=== PATIENT | male | born 1965 | race Caucasian/White ===

== ENCOUNTER 2024-06-11 13:06 | Inpatient (IN) | payer BC, SELFPAY ==
[2024-06-11] VITALS (34 sets, daily range): BP systolic 85–169; BP diastolic 54–118; BMI 27.2; BMI 25.9
[2024-06-11 01:35] LABS: % Basophils 0.6 % (0-2); % Eosinophils 2.3 % (0-6); % Immature Granulocytes 0.3 % (0-0.5); % Lymphocytes 42.9 % (20.5-51.1); % Monocytes 10.3 % (1.7-9.3); % Neutrophils 43.6 % (42.2-75.2); Absolute Basophils 0.1 10^3/uL (0-0.2); Absolute Eosinophils 0.2 10^3/uL (0-0.7); Absolute Neutrophils 4.1 10^3/uL (1.4-6.5); Hematocrit 45.4 % (39.0-52.0); Hemoglobin 15.9 g/dL (13.0-18.0); Mean Corpuscular Hgb 32.6 pg (27.0-31.0); Mean Platelet Volume 8.9 fL (7.4-10.4); Nucleated Red Blood Cells % 0 % (-); Platelet Count 207 10^3/uL (130-400); Red Blood Cell Count 4.88 10^6/uL (4.70-6.10); White Blood Cell Count 9.3 10^3/uL (4.8-10.8)
[2024-06-11 01:48] LABS: ALT (SGPT) 43 U/L (0-50); AST (SGOT) 48 U/L (17-59); Albumin 4.8 g/dl (3.5-5.0); Alkaline Phosphatase 77 U/L (38-126); Blood Urea Nitrogen 18 mg/dl (9-20); Calcium 9.4 mg/dl (8.4-10.2); Carbon Dioxide 24 mmol/L (22-30); Chloride 100 mmol/L (98-107); Glucose 136 mg/dl (70-99); Potassium 3.7 mmol/L (3.5-5.1); Sodium 137 mmol/L (135-145); Total Bilirubin 0.4 mg/dl (0.2-1.3); Total Protein 7.7 g/dl (6.3-8.2); eGFR > 60.00
[2024-06-11 01:55] LABS: Troponin I < 0.012 ng/ml
--- NOTE | 2024-06-11 02:12 | ED.GENMED ---
History of Present Illness
General
Chief Complaint: Chest Pain
Source: patient and spouse
Time Seen by Provider: 06/11/24 02:04
History of Present Illness
History of Present Illness:
This patient is a 58-year-old male presents emergency department with complaints of 'tightness' in the left side of his chest that started approximately midnight tonight and continues. It was considered severe at onset rated 9 out of 10 now down to
3 out of 10. He also feels a sense of 'tense in my jaw'. He denies other associated symptoms such as diaphoresis, nausea, vomiting, dyspnea, back pain, neck pain, headache. He is burping. Patient states he has been having similar symptoms for
about a month specifically when he is on the treadmill, and the symptoms resolved completely once he stops his activity. Tonight he was concerned because he was just sitting down when this happened.
Past History
Past History
ED Past Medical History: Other (Psoriasis)
ED Past Surgical History: Orthopedic
Social History
Tobacco: Non-smoker
Drug: None
Personal:
Living: with family
Phy Exam
Physical Exam
Physical Exam:
GENERAL: Alert , in no apparent distress
EYE: pupils equal and reactive
NECK: Supple, no significant adenopathy.
ENT: o/p clr, mmm.
CARDIAC: Regular rate and rhythm .
LUNGS: Clear breath sounds bilaterally, no acute respiratory distress, no wheezes/rales/rhonchi
ABDOMEN: Soft, without focal tenderness, no r/g, no cvat
NEUROLOGICAL: Alert and oriented, no focal neuro deficits
SKIN: Warm and dry, skin intact.
MUSCULOSKELETAL: No edema, well perfused.
PSYCH: Normal and appropriate interaction.
Scores
Heart Score for Chest Pain Patients
STEMI patient?: Not applicable
Course
Orders/Labs/Results
Orders:
Orders
06/11/24
Electrocardiogram (*1) Stat
Reason for Study: Chest Pain
Comment: DONE
06/11/24 01:04
Electrocardiogram (*1) Urgent
Reason for Study: Chest Pain
EKG- Treatment ONCE
06/11/24 01:17
Complete Blood Count/With Diff Urgent
Comprehensive Metabolic Panel Urgent
Magnesium Urgent
Phosphorus Urgent
Troponin I Urgent
06/11/24 02:12
Aspirin 325 mg PO NOW STA
Nitroglycerin Sublingual [Nitrostat (Sublingual)] 0.4 mg SL [id number] PRN
CR Chest - 2 Views Urgent
Comment:
Reason For Exam: cp
06/11/24 02:43
0.9% Sodium Chloride 1000 ml [Nss] 1,000 ml IV BOLUS
06/11/24 Breakfast
Cholesterol Lowering
At Your Request: Full Participation
06/11/24 06:32
Admit/Transfer Patient As Directed
Co-Sign Provider:
Level of Care: Inpatient admission
Assign to:: Telemetry
Physician / Group: Jerrica
Diagnosis: Chest Pain
Reason for Telemetry: Chest Pain syndromes
Date to Stop Telemetry: 06/13/24
Time to Stop Telemetry: 11:00
Reason for Hospitalization: ACS
Expected length of stay greater than two midnights?: Yes
ELOS- Estimated Length of Stay in days: 2
I certify the patient meets the requirements for IP care: Yes
PRN Pain Medication Management As Directed
May give lesser potent ordered pain med per pt: Yes
preference::
Protocol:: Medication orders for pain may be administered in a
manner that supports deferring to patient preference
when the pt is:
- Requesting an ordered lesser potent pain medication.
Least to most potent pain medications are defined
as: acetaminophen < NSAID < tramadol < opioids
(morphine, oxycodone, hydromorphone).
- Requesting a lesser dose of the same medication IF
ORDERED.
- Requesting a less intrusive route of administration
if both routes are prescribed by the provider (PO <
IV).
06/11/24 06:33
Code Status As Directed
Resuscitation Status: Full Code
06/11/24 06:51
Heparin 4,000 units IV NOW STA
Heparin Protocol- PTT Orders As Directed
PTT per Heparin protocol: -Obtain CBC and baseline PTT - if not already collected.
-Obtain PTT 6 hours from start of infusion. Then, every 6 hours until 2 consecutive
PTT's are therapeutic. Then, PTT Daily.
-With each rate change, obtain PTT every 6 hours until 2 consecutive PTT's are
therapeutic. Then, PTT Daily.
Notify MD As Directed
Notify physician if: PTT is greater than or equal to 200.
06/11/24 07:00
Flush (0.9% Sodium Chloride) [Flush (Nss)] See Dose Instructions IV PER PROTOCOL
Heparin 46513 Units/250 ml 25,000 units in 250 ml IV PER PROTOCOL
Weight to be used for heparin protocol in kilograms (kg):: 83.4
Protocol:: Cardiac Tx/Acute Coronary
PTT Goal Range to be used:: PTT 73 to 111 seconds
Order type:: Initial
INITIAL Infusion Dose (UNITS/KG/hr) & then follow protocol:: 12 units/kg/hr
Infusion Dose in UNITS/hr & then follow protocol (UNITS/hr):: 1,000
INFUSION RATE in mL/hr & then follow protocol (mL/hr):: 10
PTT less than or equal to 64 seconds:: Increase rate by 200 units/hr (+ 2 mL/hr)
PTT 64.1 to 72.9 seconds:: Increase rate by 100 units/hr (+ 1 mL/hr)
PTT 73 to 111 seconds:: Target Range. No change in rate.
PTT 111.1 to 130.9 seconds:: Decrease rate by 100 units/hr (- 1 mL/hr)
PTT 131 to 199.9 seconds:: HOLD for 1 hr. Then decrease rate by 200 units/hr (- 2 mL/hr)
PTT greater than or equal to 200 seconds:: HOLD for 2 hrs & Notify Provider. Then decrease by 200 units/hr (-
2 mL/hr)
Lab follow-up:: Each change, PTT q6h until 2 consecutive are therapeutic. Then PTT
daily.
06/11/24 07:01
EKG [Electrocardiogram (*1)] Routine
Reason for Study: Chest Pain
06/11/24 07:14
Complete Blood Count/No Diff Urgent
Comment: Obtain baseline before beginning heparin infusion if not already collected
PTT Urgent
Comment: Obtain baseline before beginning heparin infusion if not already collected
06/11/24 07:27
0.9% Sodium Chloride [Nss (Preservative Free)] See Protocol IV PRN PRN
Lorazepam [Ativan] 1 mg IV Q1HPRN PRN
Lorazepam [Ativan] 1 mg PO Q2HPRN PRN
Lorazepam [Ativan] 2 mg IV Q1HPRN PRN
06/11/24 07:27
CARDIOLOGY CONSULT Routine
Consulting Provider: Mike Shepherd
Was physician already notified: No
Reason for consult: ACS
Case Management Consult Once
Case Management Consult: Other
Comment: Substance abuse counseling
Consult Notification Routine
Specialty to Notify: Cardiology
Date consulting provider notified: 06/11/24
Time consulting provider notified: 07:31
Notified:: Office
MSAS SCORE As Directed
MSAS Score 0-4: Repeat MSAS every 2 hours until 0-4 for three consecutive assessments, then every 4 hours x 48
hours.
MSAS Score 5-7: For MILD withdrawl symptoms. Repeat MSAS and RASS every 2 hours
MSAS Score 8-11: For MODERATE withdrawal symptoms. Repeat MSAS and RASS every 1 hour. Consider ICU or IMU
level of care.
MSAS Score > 11: For SEVERE withdrawal symptoms. Repeat MSAS and RASS every 1 hour. Notify provider, consider
ICU level of care.
MSAS Additional Instructions: If no improvement or no decrease in score from severe to moderate within 12
hours, consult psychiatry
MSAS Notify Provider: Notify provider if patient requires more than 10 mg of Lorazepam in eight hour period.
06/11/24 10:32
Transfer Patient As Directed
Transfer to: IVU
06/11/24 10:55
Metoprolol Xl [Toprol Xl] 12.5 mg PO NOW STA
06/11/24 11:03
Pantoprazole [Protonix] 40 mg PO NOW STA
06/11/24 11:07
Add On- LAB Urgent
Tests Added?: Magnesium, Phosphorous
06/11/24 12:30
Acetaminophen [Tylenol] 650 mg PO Q4HPRN PRN
Aspirin Chewable [Low Strength Aspirin] 81 mg PO DAILY
FOLic ACID [Folvite] 1 mg PO DAILY
FOLic ACID [Folvite] 1 mg 0.9% Sodium Chloride 50 ml [Nss] 50 ml IV DAILYPRN
Morphine Sulfate 2 mg IV Q4HPRN PRN
Thiamine Injection 200 mg IV Q12
06/11/24 12:30
DIETARY CONSULT Routine
Reason for Consult: Nutrition support, possible refeeding guidelines
Activity As Directed
Activity Level: Bedrest
EKG with chest pain [ECG as needed] As Directed
ECG as needed for:: Chest Pain
I/O [Intake/ Output] As Directed
Frequency: Per unit guidelines
Pneumatic Compression Sleeves As Directed
Type: Knee high
Vital Signs As Directed
Frequency: Per unit guidelines
Oxygen Therapy [O2 Therapy] [RESP] Routine
Titrate/Wean O2 to maintain O2 sat greater than (%): 94
DX Deep Vein Thrombosis Video Routine
06/11/24 12:36
Glycohemoglobin (HgbA1c) Routine
Troponin I Q6H
06/11/24 13:40
Troponin I Q6H
06/11/24 18:00
Atorvastatin [Lipitor] 40 mg PO QPM
06/12/24 03:26
Basic Metabolic Panel IN AM
Cardiovascular Evaluation IN AM
Complete Blood Count/No Diff IN AM
06/12/24 06:00
EKG [Electrocardiogram (*1)] IN AM
Reason for Study: Chest Pain
06/12/24 08:00
Metoprolol Xl [Toprol Xl] 12.5 mg PO DAILY
Pantoprazole [Protonix] 40 mg PO DAILY
06/13/24 04:08
Complete Blood Count/No Diff Q2D
Comment: Notify MD if platelet count is <130,000 or decreases by 50% from baseline
06/13/24 11:00
DC Protocol for Telemetry ONCE
06/14/24 08:00
Thiamine HCl [Vitamin B1] 100 mg PO BID
06/15/24 06:00
Complete Blood Count/No Diff Q2D
Comment: Notify MD if platelet count is <130,000 or decreases by 50% from baseline
06/17/24 06:00
Complete Blood Count/No Diff Q2D
Comment: Notify MD if platelet count is <130,000 or decreases by 50% from baseline
06/19/24 06:00
Complete Blood Count/No Diff Q2D
Comment: Notify MD if platelet count is <130,000 or decreases by 50% from baseline
06/21/24 06:00
Complete Blood Count/No Diff Q2D
Comment: Notify MD if platelet count is <130,000 or decreases by 50% from baseline
06/23/24 06:00
Complete Blood Count/No Diff Q2D
Comment: Notify MD if platelet count is <130,000 or decreases by 50% from baseline
06/25/24 06:00
Complete Blood Count/No Diff Q2D
Comment: Notify MD if platelet count is <130,000 or decreases by 50% from baseline
06/27/24 06:00
Complete Blood Count/No Diff Q2D
Comment: Notify MD if platelet count is <130,000 or decreases by 50% from baseline
Abnormal Lab Results
06/11/24 06/11/24 06/11/24
01:17 07:14 12:36
RBC 4.41 L 10^6/uL
(4.70-6.10)
MCH 32.6 H pg 32.9 H pg
(27.0-31.0) (27.0-31.0)
Absolute Lymphs (auto) 4.0 H 10^3/uL
(1.2-3.4)
Absolute Monos (auto) 1.0 H 10^3/uL
(0.1-0.6)
Monocytes % 10.3 H %
(1.7-9.3)
Glucose 136 H mg/dl
(70-99)
Troponin I 12.300 H* ng/ml
06/11/24 07:14
06/11/24 01:17
Vital Signs
Initial and Last Documented VS:
Initial Vital Signs
Temp Pulse Resp BP Pulse Ox
97.9 F 108 26 169/118 94
06/11/24 01:11 06/11/24 01:11 06/11/24 01:11 06/11/24 01:11 06/11/24 01:11
Last Documented Vital Signs
Temp Pulse Resp BP Pulse Ox
97.7 F 60 17 133/93 94
06/13/24 04:00 06/13/24 07:19 06/13/24 04:00 06/13/24 07:19 06/13/24 04:01
*Critical Care Note
Total Time (30-74mins, 75-104mins- exclusive of procedures): Not Applicable
Update Note
Update Note:
Patient presents to the Emergency Department with _chest pain
Number and Complexity of Problems Addressed at the Encounter
� Chronic conditions affecting care:
� Acute Exacerbation and/or Progression of Chronic Illness:
� Differential Diagnosis includes: But not limited to pericarditis, ACS, pleurisy, etc. etc.
Amount and/or Complexity of Data to be Reviewed and Analyzed
� I performed an independent evaluation of and my interpretation is:
EKG:Read by me, sinus tachycardia, ST depressions noted inferolaterally
CT:
Xrays:CXR read by me, no acute abnl
Laboratory Studies:First troponin normal
Other:
� Review of other/old records reveals:
� Clinical information was obtained by an independent historian: who is at bedside
� Prescriptions/Medications Considered but not given:
� Further testing considered but not performed:
Risk of Complications and/or Morbidity or Mortality of Patient Management
� Social determinants of health affecting care:
� Discussion with other providers (PCP, Hospitalists, Consultants, etc):
� Escalation of care including admission/observation vs risk of discharge considered: 3:57 AM patient given aspirin and nitro x 3, he is now pain-free, ST depressions still noted. Given history of pain at rest, abnormal EKG
without prior for comparison, recommend observation, serial troponins, consideration for stress testing.
ED Attending Note
-
Portions of this chart may have been created with voice recognition software.� Occasional wrong word or��sound alike� substitutions may have occurred due to the inherent limitations of voice recognition software.
Discharge Plan
Departure
Patient Disposition: Admit
Date of Disposition: 06/11/24
Time of Disposition: 03:57
Admit to: Telemetry
Admit to doctor: jerrica
Presentation/result/management discussed w/ accepting MD/DO: Hospitalist
Condition: Fair
Discharge Problem:
Chest pain
Interventions
Interventions:
*Risk Screen - Suicide Last Done: 06/11/24 01:11
*General Assessment Last Done: 06/11/24 01:11
*Neglect/Abuse Screening Last Done: 06/11/24 01:11
ED- Fall Risk Assessment Last Done: 06/11/24 02:07
*ED COVID-19 Vaccine History Last Done: 06/11/24 02:07
*Nursing Disposition Last Done: 06/11/24 12:45
ED- Cardiac Assessment Last Done: 06/11/24 02:06
Discharge Date and Time
Discharge Date/Time: 06/11/24 12:45
[2024-06-11] MEDS: NITROSTAT (SUBLINGUAL) 0.4 MG SL ×5 (02:20→16:29)
[2024-06-11] MEDS: ASPIRIN 325 MG PO (02:20)
[2024-06-11] MEDS: NSS 1000 IV (02:44)
--- NOTE | 2024-06-11 07:00 | HPS.HSE ---
Family Physician
-
Family Physician: * NONE
Chief Complaint
-
Chest Pain
History of Present Illness
Patient is a 58y M with no significant PMH who presents to ED complaining of chest pain. Patient states that he woke around 12 midnight with L upper chest discomfort. He states that he has been having similar discomfort for the past 3 weeks or
so. The symptoms initially started after long work-outs of 30-40 minutes on the treadmill. Over the past 3 weeks, the symptoms have occurred with less and less duration of exercise.
Last PM was the first time pain woke him from sleep or occurred at rest. Pain lasted until about 4 AM and has not recurred since.
Patient presented to the ED for further evaluation and treatment.
He denies any known history of heart disease or other chronic health issues.
He is adopted and has no known family history.
At the time of my examination, patient is resting comfortably with no chest pain at present.
Medical History
Past Medical History
Past Medical History: Reports None
Past Surgical History: Reports Other
Additional Past Surgical History:
Knee Arthroscopy
Social History
Tobacco: Former Smoker (Quit smoking about 15 years ago. Approx 20 pack years total use.)
Alcohol: Daily (5-6 beers daily.)
Drug: None
Family History
Family History: Adopted
Allergies / Home Medications
Allergies reflects when Allergies were last updated in [employer].
Home Medications with original date entered in [employer]
Allergy/Medication List:
Allergies
Allergy/AdvReac Type Severity Reaction Status Date / Time
No Known Allergies Allergy Unverified 06/11/24 06:32
Home Medications
No Meds [No Current Medications] 06/11/24
Review of Systems
-
History Source: Patient
A 12 point ROS was completed and negative except as noted: Yes
Constitutional: Denies Fever or Chills
Respiratory: Denies Cough or Trouble Breathing
Cardiac: Reports Chest Pain; Denies Diaphoresis or Palpitations
Abdomen/GI: Denies Abdominal Pain, Nausea, Vomiting or Diarrhea
: Denies Dysuria, Frequency or Flank Pain
Musculoskeletal: Denies Joint Pain or Edema
Neurological: Denies Dizzy or Headache
Psych: Denies Depression or Anxiety
Physical Exam
Vital Signs
Vital Signs
Temp Pulse Resp BP Pulse Ox
97.9 F 82 22 131/87 90
06/11/24 01:11 06/11/24 04:30 06/11/24 04:30 06/11/24 03:00 06/11/24 04:30
Physical Exam
General: Other (58y M in no acute distress.)
HEENT: Moist mucous membranes and PERRLA
Respiratory: Clear; No Wheezes, Rales or Rhonchi
Cardiac: S1/S2 and Regular Rhythm; No Murmur
GI: Soft, Non Tender, Non Distended and Normal Bowel Sounds
Musculoskeletal: No Clubbing, No Cyanosis and No Edema
Neuro: AO x 3
Laboratory Results
-
06/11/24 01:17
Laboratory Results
Total Bilirubin 0.4 mg/dl (0.2-1.3) 06/11/24 01:17
AST 48 U/L (17-59) 06/11/24 01:17
ALT 43 U/L (0-50) 06/11/24 01:17
Alkaline Phosphatase 77 U/L (38-126) 06/11/24 01:17
Troponin I < 0.012 ng/ml 06/11/24 01:17
Impression/Plan
-
A/P: Patient is a 58y M with no significant PMH who presents to ED for evaluation of chest pain.
Chest Pain / ACS
- Admit for further evaluation and treatment.
- Patient with excellent story for progressive angina over the past 3 weeks.
- Initial EKG with diffuse ST changes concerning for ischemia - no prior tracings to compare.
- Second tracing with progressive ST depressions laterally.
- Troponin undetectable thus far - follow serially.
- Begin IV heparin given excellent story and positive EKG changes.
- Cardiology evaluation for additional recommendations / possible ischemic evaluation.
- ASA daily.
- Check lipid panel, A1C, etc
- Follow for any new / recurrent symptoms.
Alcohol Use Disorder
- Patient reports drinking 5-6 beers every day.
- Monitor for evidence of withdrawal during hospital stay.
- BZDs as needed for symptoms of withdrawal.
- Thiamine, folate, MVI replacement.
DVT Prophylaxis: On IV heparin
Code Status: Full
[2024-06-11] MEDS: HEPARIN 4000 UNITS IV (07:17)
[2024-06-11] MEDS: HEPARIN 25000 UNITS/250 ML IV (07:18)
[2024-06-11 07:26] LABS: Hematocrit 41.2 % (39.0-52.0); Hemoglobin 14.5 g/dL (13.0-18.0); Mean Corp Hgb Conc. 35.2 g/dL (33.0-37.0); Mean Corpuscular Hgb 32.9 pg (27.0-31.0); Mean Corpuscular Volume 93.4 fL (80.0-94.0); Mean Platelet Volume 8.8 fL (7.4-10.4); Platelet Count 179 10^3/uL (130-400); Red Blood Cell Count 4.41 10^6/uL (4.70-6.10); Red Cell Dist. Width 11.9 % (11.5-14.5); White Blood Cell Count 6.6 10^3/uL (4.8-10.8)
[2024-06-11 07:35] LABS: APTT 29.3 Sec (23.4-35.0)
--- NOTE | 2024-06-11 09:48 | CON.CAR ---
Addendum entered and electronically signed by Freddie Rodrigues MD 06/11/24 11:10:
Patient seen and examined
Agree with notes and assessment
Agree with plan
Dynamic ECG changes noted and is pain-free when seen. He gives a 3 to 4-week history of escalating angina with exercise and pain coming on with less and less exercise which is better with rest. ST depressions noted in V2 through V5 on presentation
and better with pain-free in the emergency department. Currently has received aspirin and IV heparin.
Exam:
Alert and x 3
Nonfocal neurologically
JVP 6
Cor regular no murmur
Lungs clear to auscultation bilaterally
Abdomen soft nontender positive bowel sounds
Extremities no edema
Well-appearing
Well-nourished
Does not appear in acute distress
HEENT normocephalic atraumatic
PCP: None
Cardiology: None prior to admission
Impression:
Chest pain
Abnormal EKG with ST depressions anterolaterally
Elevated BP
Plan:
-Presented with chest pain. Initially started as exertional chest pain that would resolve with rest, however last night developed severe chest tightness while at rest prompting ER evaluation.
-Story consistent with unstable angina. Pain-free after receiving 3 SL nitro in ER.
-Initial ECG reviewed, SR with ST depressions anterolaterally. Improved on most recent ECG.
-Agree with IV heparin
-Given aspirin 324 mg in ER. Continue aspirin 81 mg daily
-Initial troponin negative. Continue to trend.
-Check echo
-Check HgbA1c, CVE
-BP elevated on arrival, and it dropped after receiving SL nitro. Will start Toprol 12.5 mg daily. May increase this to 25 mg daily depending upon his blood pressures. May also consider Norvasc if blood pressures are not well-controlled on
current regimen
-Plan for [facility] 06/13/2024 or sooner if unstable symptoms.
-Chest x-ray unremarkable.
-Further management pending echo and catheterization results.
Discussed plan with Dr. Ortega
Original Note:
Consultation
Consultation Request
Date/Time Consultation Requested: 06/11/2024
Date/Time Consultation Performed: 06/11/2024
Requesting Provider: Dr. Rouse
Performing Provider: Daksha Blackwell PA-C for Dr. Rodrigues
Reason for Consultation: Chest pain, Abnormal ECG
Medical History
-
History of Present Illness:
HPI: Tushar is a 58-year-old male with no significant past medical history. He presents to ER for evaluation of progressively worsening chest tightness. He reports that typically he exercises on the treadmill 3 miles every day, however
approximately 2 to 3 weeks ago he started noting exertional chest tightness during his exercises. He states approximately fpc through his workout he was started to have chest tightness along the left side of his chest with radiation to his jaw.
He would stop exercising and within a few minutes his symptoms were resolved. Throughout the past couple of weeks, he notes that the chest tightness started happening with less and less exertion, and over the past few days he was only able to
exercise for a few minutes before he needed to stop due to his symptoms. Pain resolved shortly after resting, however but with any resumption of exercise would return. Last evening while sitting on the couch resting, he had more severe chest
tightness with radiation into his jaw that occurred while at rest. As he had not previously had rest symptoms, he decided to come into the ER for evaluation. In ER, initial ECG concerning with anterolateral ST depressions. He was given 3 doses of
sublingual nitroglycerin and pain resolved. Initial troponin negative. Given story concerning for angina with abnormal EKG, he has been admitted and started on IV heparin. Cardiology consulted for evaluation. He notes he does not follow
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 During dermatology visits, he notes his blood pressure has been elevated, however he is not on any antihypertensive medications. Currently he is
pain-free and is resting comfortably in stretcher.
PMH:
None
Past Medical History
Past Medical History: Other (See HPI)
Past Surgical History: Orthopedic
Social History
Tobacco: Former Smoker (Quit approximately 15 years ago. 1 PPD for 30 years)
Alcohol: Daily (4-6 beers daily)
Drug: None
Personal:
Living: With Family
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
Family History
Family History: Adopted
Allergies / Home Medications
Allergy/AdvReac Type Severity Reaction Status Date / Time
No Known Allergies Allergy Unverified 06/11/24 06:32
�Medication �Instructions �Recorded �Confirmed �Type
No Meds [No Current Medications] 06/11/24 06/11/24 History
Review of Systems
-
History Source: Patient
All other systems: Negative unless noted
Physical Exam
Vital Signs
Temp Pulse Resp BP Pulse Ox
97.9 F 82 22 131/87 90
06/11/24 01:11 06/11/24 04:30 06/11/24 04:30 06/11/24 03:00 06/11/24 04:30
Lab Results
06/11/24 07:14
06/11/24 01:17
Troponin I < 0.012 ng/ml 06/11/24 01:17
Physical Exam
General: Well Developed, Well Nourished and No Apparent Distress
HEENT: Normocephalic, Anicteric and Moist Mucous Membranes
Respiratory: Clear and Non Labored Respirations
Cardiac: S1/S2 and Regular Rhythm
Musculoskeletal: No Clubbing, No Cyanosis and No Edema
Skin: Warm and Dry
Neuro: AO x 3 and Nonfocal/Grossly Intact
Psych: Calm
Impression / Plan
-
PCP: None
Cardiology: None prior to admission
Impression:
Chest pain
Abnormal EKG with ST depressions anterolaterally
Elevated BP
Plan:
-Presented with chest pain. Initially started as exertional chest pain that would resolve with rest, however last night developed severe chest tightness while at rest prompting ER evaluation.
-Story concerning for angina. Pain-free after receiving 3 SL nitro in ER.
-Initial ECG reviewed, SR with ST depressions anterolaterally. Improved on most recent ECG.
-Agree with IV heparin
-Given aspirin 324 mg in ER. Continue aspirin 81 mg daily
-Initial troponin negative. Continue to trend.
-Check echo
-Check HgbA1c, CVE
-BP elevated on arrival, and it dropped after receiving SL nitro. Will start Toprol 12.5 mg daily
-Plan for [facility] 06/13/2024 or sooner if unstable symptoms.
-Chest x-ray unremarkable.
-Further management pending echo and catheterization results.
HPI: Tushar is a 58-year-old male with no significant past medical history. He presents to ER for evaluation of progressively worsening chest tightness. He reports that typically he exercises on the treadmill 3 miles every day, however
approximately 2 to 3 weeks ago he started noting exertional chest tightness during his exercises. He states approximately fpc through his workout he was started to have chest tightness along the left side of his chest with radiation to his jaw.
He would stop exercising and within a few minutes his symptoms were resolved. Throughout the past couple of weeks, he notes that the chest tightness started happening with less and less exertion, and over the past few days he was only able to
exercise for a few minutes before he needed to stop due to his symptoms. Pain resolved shortly after resting, however but with any resumption of exercise would return. Last evening while sitting on the couch resting, he had more severe chest
tightness with radiation into his jaw that occurred while at rest. As he had not previously had rest symptoms, he decided to come into the ER for evaluation. In ER, initial ECG concerning with anterolateral ST depressions. He was given 3 doses of
sublingual nitroglycerin and pain resolved. Initial troponin negative. Given story concerning for angina with abnormal EKG, he has been admitted and started on IV heparin. Cardiology consulted for evaluation. He notes he does not follow
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 During dermatology visits, he notes his blood pressure has been elevated, however he is not on any antihypertensive medications. Currently he is
pain-free and is resting comfortably in stretcher.
Data Reviewed
-
EKG: Tracing Personally Visualized and interpreted
Radiology: Report Reviewed by me
Labs: Labs Reviewed by me
--- NOTE | 2024-06-11 10:52 | W.PN.HOSP.TC ---
Today's Communication/Plan
-
see plan
Assessment / Plan
Assessment / Plan
A/P: Patient is a 58y M with no significant PMH who presents to ED for evaluation of chest pain.
Chest Pain / ACS
- Initial EKG with diffuse ST changes concerning for ischemia - no prior tracings to compare.
- Second tracing with progressive ST depressions laterally.
- Troponin undetectable thus far - follow serially.
- continue IV Heparin
- Cardiology evaluation appreciated, plan for cath on Thursday
- ASA daily.
- new start Metoprolol
- new start Statin
- Check lipid panel, A1C
Alcohol Use Disorder
- Patient reports drinking 5-6 beers every day.
- Monitor for evidence of withdrawal during hospital stay.
- BZDs as needed for symptoms of withdrawal.
- Thiamine, folate, MVI replacement.
GI PPx - with alcohol use history and initiation of aspirin/heparin will start Protonix for GI PPx
DVT Prophylaxis: On IV heparin
Code Status: Full
51 minutes spent on patient care
Anticipated Discharge: > 48 hours
Subjective/Interval History
-
Date of Service: June 11, 2024
currently denies chest pain
Objective Data
-
Labs:
Laboratory Results
06/11/24 06/11/24
01:17 07:14
WBC 9.3 6.6
Hgb 15.9 14.5
Hct 45.4 41.2
Plt Count 207 179
APTT 29.3
Sodium 137
Potassium 3.7
Chloride 100
Carbon Dioxide 24
BUN 18
Creatinine 0.9
Glucose 136 H
Calcium 9.4
Total Bilirubin 0.4
AST 48
ALT 43
Alkaline Phosphatase 77
Vital Signs:
Vital Signs
Temp Pulse Resp BP Pulse Ox
97.9 F 82 22 131/87 90
06/11/24 01:11 06/11/24 04:30 06/11/24 04:30 06/11/24 03:00 06/11/24 04:30
Review of Systems
-
History Source: Patient
All other systems: Reviewed and negative
Physical Exam
-
General: No Apparent Distress
HEENT: PERRLA
Respiratory: Clear to Auscultation; Negative Wheezes
Cardiac: Regular Rhythm and S1/S2
GI: Soft and Nontender
Musculoskeletal: No Edema
Skin: Warm and Dry; Negative Rash
Neuro: AO x 3
Psych: Calm
Data Reviewed
-
Diagnostic Radiology: Report Reviewed by me
Labs: Labs Reviewed by me
--- NOTE | 2024-06-11 11:12 | EDRN ---
Patient states he drinks a 6 pack of beer daily. Denies withdrawl complications or seizures in history
[2024-06-11 11:39] LABS: Magnesium 2.1 mg/dl (1.6-2.3); Phosphorus 4.2 mg/dl (2.5-4.5)
[2024-06-11] MEDS: PROTONIX 40 MG PO (12:45)
[2024-06-11] MEDS: TOPROL XL 12.5 MG PO (12:45)
[2024-06-11] MEDS: LOW STRENGTH ASPIRIN 81 MG PO (13:41)
[2024-06-11] MEDS: FOLVITE 1 MG PO (13:41)
[2024-06-11] MEDS: THIAMINE INJECTION 200 MG IV ×2 (13:41→20:04)
[2024-06-11 13:57] LABS: APTT 62.6 Sec (23.4-35.0)
[2024-06-11 14:11] LABS: Glycohemoglobin (HgbA1c) 5.3 % (4.0-5.6)
[2024-06-11] MEDS: OCEAN, SALINE MIST 1 SPRAYS NASAL ×2 (16:30→20:05)
[2024-06-11] MEDS: TYLENOL 650 MG PO ×2 (16:35→20:44)
[2024-06-11] MEDS: LIPITOR 40 MG PO (17:28)
--- NOTE | 2024-06-11 17:53 | PTCARENOTE ---
Pt received at 1500 from the ED with heparin infusing at 1200 units/hr. Pt denies any chest pain or sob. Room air sat 95%. Pt later later c/o of 1/10 left upper chest/shoulder discomfort. Medicated with SL Nitro x 2 with no real relief. Medicated
with 650mg of Tylenol for c/o of left shoulder pain, pt sat oob in the chair and got relief.
[2024-06-11 21:18] LABS: APTT 62.4 Sec (23.4-35.0)
[2024-06-11] MEDS: MORPHINE SULFATE 2 MG IV (21:52)
--- NOTE | 2024-06-11 22:00 | PTCARENOTE ---
Assumed care of pt from kamron RN. Walking rounds completed. Pt AAOx3. MEADE. Pt on MSAS - see worklist. Pt is SR on the tele monitor. HR 80s. BP stable. No edema. Palpable pulses throughout. Lung sounds audible B/L. Pt is 94% on RA. Abdomen
soft/nontender. +BS. Pt voiding w/o issue. Heparin infusing as ordered and titrated per protocol. PIV x1 intact. Pt c/o left shoulder pain that radiates along the left upper back. EKG obtained. EKG showed NSR w/ possible left atrial enlargement, ST
& T wave abnormality, and prolonged QT. See MAR for pain medication administration. Pt repositioned for comfort. Pt instructed to ring if he starts experiencing CP. See worklist for full nursing assessment and interventions. Call iyer within reach.
[2024-06-12 03:09] VITALS: BP 131/77
[2024-06-12] MEDS: TYLENOL 650 MG PO ×3 (03:35→21:11)
[2024-06-12 03:38] VITALS: BMI 25.5
[2024-06-12 04:05] LABS: Hemoglobin 15.7 g/dL (13.0-18.0); Mean Corp Hgb Conc. 34.9 g/dL (33.0-37.0); Mean Corpuscular Hgb 32.6 pg (27.0-31.0); Mean Corpuscular Volume 93.6 fL (80.0-94.0); Mean Platelet Volume 9.7 fL (7.4-10.4); Platelet Count 161 10^3/uL (130-400); Red Blood Cell Count 4.81 10^6/uL (4.70-6.10); White Blood Cell Count 10.2 10^3/uL (4.8-10.8)
[2024-06-12 04:10] LABS: APTT 83.1 Sec (23.4-35.0)
[2024-06-12 04:21] LABS: Blood Urea Nitrogen 13 mg/dl (9-20); Carbon Dioxide 25 mmol/L (22-30); Chloride 103 mmol/L (98-107); Estimated Creatinine Clearance 116 ml/min; Glucose 114 mg/dl (70-99); HDL Cholesterol 70 mg/dl; LDL Cholesterol, Calculated 165 mg/dl; Potassium 3.9 mmol/L (3.5-5.1); Sodium 136 mmol/L (135-145); Total Cholesterol 282 mg/dl (50-199); Triglyceride 237 mg/dl (10-149); Very Low Density Lipoprotein 47 mg/dl (0-30); eGFR > 60.00
[2024-06-12] MEDS: HEPARIN 25000 UNITS/250 ML IV ×2 (04:35→22:40)
[2024-06-12 07:48] VITALS: BP 129/75
--- NOTE | 2024-06-12 07:51 | W.PN.HOSP.TC ---
Today's Communication/Plan
-
NPO after MN for cardiac cath tomorrow
appreciate Cardiology
Assessment / Plan
Assessment / Plan
A/P: Patient is a 58y M with no significant PMH who presents to ED for evaluation of chest pain found to have an NSTEMI.
Chest Pain / ACS
- ischemic EKG changes
- Troponin peaked at 12.6
- continue IV Heparin
- Cardiology evaluation appreciated, plan for cath on Thursday
- new start asa daily
- new start Metoprolol
- new start Statin
HLD
-new start statin
Alcohol Use Disorder
- Patient reports drinking 5-6 beers every day.
- Monitor for evidence of withdrawal during hospital stay.
- BZDs as needed for symptoms of withdrawal.
- Thiamine, folate, MVI replacement.
GI PPx - with alcohol use history and initiation of aspirin/heparin will start Protonix for GI PPx
DVT Prophylaxis: On IV heparin
Code Status: Full
51 minutes spent on patient care
Anticipated Discharge: 24 - 48 hours
Subjective/Interval History
-
Date of Service: June 12, 2024
some upper back pain
no chest pain
Objective Data
-
Labs:
Laboratory Results
06/11/24 06/12/24 06/12/24
20:48 00:01 03:26
WBC 10.2
Hgb 15.7
Hct 45.0
Plt Count 161
APTT 62.4 H Cancelled 83.1 H
Sodium 136
Potassium 3.9
Chloride 103
Carbon Dioxide 25
BUN 13
Creatinine 0.7
Glucose 114 H
Calcium 9.0
06/12/24
10:30
WBC
Hgb
Hct
Plt Count
APTT Pending
Sodium
Potassium
Chloride
Carbon Dioxide
BUN
Creatinine
Glucose
Calcium
Vital Signs:
Vital Signs
Temp Pulse Resp BP Pulse Ox
98.3 F 66 20 131/77 93
06/12/24 07:45 06/12/24 07:15 06/12/24 07:45 06/12/24 03:09 06/12/24 07:45
I&O
06/11/24 06/12/24 06/13/24
06:59 06:59 06:59
Intake Total 268 / 268
Output Total 1300 / 1300
Balance -1032 / -1032
Review of Systems
-
History Source: Patient
All other systems: Reviewed and negative
Physical Exam
-
General: No Apparent Distress
HEENT: PERRLA
Respiratory: Clear to Auscultation; Negative Wheezes
Cardiac: Regular Rhythm and S1/S2
GI: Soft and Nontender
Musculoskeletal: No Edema
Skin: Warm and Dry; Negative Rash
Neuro: AO x 3
Psych: Calm
Data Reviewed
-
Diagnostic Radiology: Report Reviewed by me
Labs: Labs Reviewed by me
--- NOTE | 2024-06-12 08:41 | W.PN.CARDCBS ---
Today's Communication / Plan
-
Left heart catheterization June 13
IV heparin
Aspirin
Holding dual antiplatelet therapy out of concern for multivessel disease
Any further pain would cath today
Troponins trending down
Increased beta-claudia
Statin
Impression / Plan
-
PCP: None
Cardiology: None prior to admission
Impression:
Chest pain-presented with unstable angina
Abnormal EKG with ST depressions anterolaterally
Elevated BP
NSTEMI
Mixed hyperlipidemia
Recent EtOH use
Plan:
-Presented with chest pain. Initially started as exertional chest pain that would resolve with rest, however last night developed severe chest tightness while at rest prompting ER evaluation.
-3 to 4 weeks of unstable angina. Pain-free after receiving 3 SL nitro in ER. Overall time of pain was approximately 2 hours
-He has deep T wave inversions on today's ECG and is pain-free. His troponin has peaked and now is coming down with a peak at 12. We had conversations yesterday and today about reporting any chest pain to our team if he notes this as we would move
up his cardiac catheterization. He does have left shoulder ache which is constant and appears musculoskeletal and is worse with change in position better with lying upright. This is different pain in character than the anginal symptoms that he is
been having.
-Continue IV heparin
-Given aspirin 324 mg in ER. Continue aspirin 81 mg daily
-Can stop checking further troponins as they are trending downward
-Check echo
-Check HgbA1c, CVE
-BP elevated on arrival, and it dropped after receiving SL nitro. I increased his Toprol to 25 mg daily with good heart rate and blood pressure control this morning. He is on limited activity
-Plan for [facility] 06/13/2024 or sooner if unstable symptoms.
-Chest x-ray unremarkable.
-Added Lipitor and check to fasting lipids
HPI: Tushar is a 58-year-old male with no significant past medical history. He presents to ER for evaluation of progressively worsening chest tightness. He reports that typically he exercises on the treadmill 3 miles every day, however
approximately 2 to 3 weeks ago he started noting exertional chest tightness during his exercises. He states approximately half-way through his workout he was started to have chest tightness along the left side of his chest with radiation to his jaw.
He would stop exercising and within a few minutes his symptoms were resolved. Throughout the past couple of weeks, he notes that the chest tightness started happening with less and less exertion, and over the past few days he was only able to
exercise for a few minutes before he needed to stop due to his symptoms. Pain resolved shortly after resting, however but with any resumption of exercise would return. Last evening while sitting on the couch resting, he had more severe chest
tightness with radiation into his jaw that occurred while at rest. As he had not previously had rest symptoms, he decided to come into the ER for evaluation. In ER, initial ECG concerning with anterolateral ST depressions. He was given 3 doses of
sublingual nitroglycerin and pain resolved. Initial troponin negative. Given story concerning for angina with abnormal EKG, he has been admitted and started on IV heparin. Cardiology consulted for evaluation. He notes he does not follow
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 During dermatology visits, he notes his blood pressure has been elevated, however he is not on any antihypertensive medications. Currently he is
pain-free and is resting comfortably in stretcher.
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
Subjective
Date of Service: June 12, 2024
No chest pain this morning
Objective
Labs:
06/12/24 03:26
06/12/24 03:
Labs
Hgb 15.7 g/dL (13.0-18.0) 06/12/24 03:
Hct 45.0 % (39.0-52.0) 06/12/24 03:
Plt Count 161 10^3/uL (130-400) 06/12/24 03:26
APTT 83.1 Sec (23.4-35.0) H 06/12/24 03:26
Sodium 136 mmol/L (135-145) 06/12/24 03:26
Potassium 3.9 mmol/L (3.5-5.1) 06/12/24 03:26
BUN 13 mg/dl (9-20) 06/12/24 03:26
Creatinine 0.7 mg/dL (0.7-1.3) 06/12/24 03:26
Glucose 114 mg/dl (70-99) H 06/12/24 03:26
Troponins
06/11/24 06/11/24 06/11/24
01:17 12:36 13:40
Troponin I < 0.012 12.300 H* 12.300 H*
06/11/24 06/11/24 06/11/24
19:30 19:30 20:48
Troponin I Cancelled Cancelled 12.600 H*
06/11/24 06/12/24
22:54 03:26
Troponin I Cancelled 9.370 H* D
Vital Signs and I&O:
Vital Signs
Temp Pulse Resp BP Pulse Ox
98.3 F 66 20 131/77 93
06/12/24 07:45 06/12/24 07:15 06/12/24 07:45 06/12/24 03:09 06/12/24 07:45
Vital Signs
Temp Pulse Resp BP Pulse Ox
98.3 F 66 20 131/77 93
06/12/24 07:45 06/12/24 07:15 06/12/24 07:45 06/12/24 03:09 06/12/24 07:45
Intake & Output
06/10/24 06/11/24 06/12/24 06/13/24
06:59 06:59 06:59 06:59
Intake Total 268 / 268
Output Total 1300 / 1300
Balance -1032 / -1032
Physical Exam
Physical Exam
����Physical Exam
���������������������General:��no apparent distress, not acutely ill
���������������������������Neck:��supple. no meningeal signs. normal psoterior pharynx
������������������������
���������������������������Heart:��s1/s2 regular rate and rhythm, no murmur. equal radial pulses.
��������������������������Lungs: ��no acute respiratory distress. clear bilaterally
����������������������Abdomen:�normal bowel sounds. not tender. no CVAT
��������������������������Neuro:��alert and oriented. no focal neurological deficits
������������������������������Skin: ��no rash
�����������������������Psychiatric:�well kept. interactive and cooperative
�����������������������Extremities:��no edema. no calf tenderness. negative homans. good distal pulses
��
�
[2024-06-12] MEDS: FOLVITE 1 MG PO (09:37)
[2024-06-12] MEDS: OCEAN, SALINE MIST 1 SPRAYS NASAL ×2 (09:37→21:11)
[2024-06-12] MEDS: PROTONIX 40 MG PO (09:37)
[2024-06-12] MEDS: LOW STRENGTH ASPIRIN 81 MG PO (09:37)
[2024-06-12] MEDS: TOPROL XL 25 MG PO ×2 (09:37→21:10)
[2024-06-12] MEDS: THIAMINE INJECTION 200 MG IV ×2 (09:38→21:11)
[2024-06-12 11:39] VITALS: BP 116/72
[2024-06-12 12:15] LABS: APTT 86.6 Sec (23.4-35.0)
[2024-06-12] MEDS: NORVASC 2.5 MG PO (12:33)
[2024-06-12 15:39] VITALS: BP 118/68
[2024-06-12] MEDS: LIPITOR 80 MG PO (17:06)
[2024-06-12 20:00] VITALS: BP 126/67
[2024-06-12 22:44] VITALS: BP 128/81
[2024-06-13] VITALS (13 sets, daily range): BP systolic 107–140; BP diastolic 48–93; BMI 25.5
[2024-06-13 04:19] LABS: Hematocrit 42.3 % (39.0-52.0); Hemoglobin 14.4 g/dL (13.0-18.0); Mean Corpuscular Hgb 32.6 pg (27.0-31.0); Mean Corpuscular Volume 95.7 fL (80.0-94.0); Mean Platelet Volume 9.4 fL (7.4-10.4); Platelet Count 159 10^3/uL (130-400); Red Blood Cell Count 4.42 10^6/uL (4.70-6.10); Red Cell Dist. Width 12.2 % (11.5-14.5); White Blood Cell Count 7.3 10^3/uL (4.8-10.8)
[2024-06-13 04:31] LABS: APTT 142.7 Sec (23.4-35.0)
[2024-06-13 04:57] LABS: Blood Urea Nitrogen 13 mg/dl (9-20); Calcium 9.2 mg/dl (8.4-10.2); Carbon Dioxide 26 mmol/L (22-30); Chloride 103 mmol/L (98-107); Estimated Creatinine Clearance 102 ml/min; Glucose 111 mg/dl (70-99); Magnesium 2.1 mg/dl (1.6-2.3); Potassium 4.2 mmol/L (3.5-5.1); Sodium 138 mmol/L (135-145); eGFR > 60.00
--- NOTE | 2024-06-13 06:07 | PTCARENOTE ---
Pt NSR on monitor, denies chest or shoulder pain. c/o mild right side RICHARDSON. independent in the room. NPO for cath
[2024-06-13] MEDS: NORVASC 5 MG PO (07:17)
[2024-06-13] MEDS: LOW STRENGTH ASPIRIN 81 MG PO (07:17)
[2024-06-13] MEDS: FOLVITE 1 MG PO (07:17)
[2024-06-13] MEDS: PROTONIX 40 MG PO (07:19)
[2024-06-13] MEDS: TOPROL XL 25 MG PO ×2 (07:19→20:18)
[2024-06-13] MEDS: OCEAN, SALINE MIST 1 SPRAYS NASAL ×2 (07:20→20:19)
--- NOTE | 2024-06-13 08:31 | CONSULT.CT ---
Addendum entered and electronically signed by JEFF Gross 06/13/24 15:05:
Edit: No hx of drug use
Original Note:
Consultation
-
Date/Time Consultation Requested: 06/13/24824
Date/Time Consultation Performed: 06/13 830
Requesting Provider: Jonna
Performing Provider: Taya AGUILAR for Deepti DE LA O
Reason for Consultation: CABG Eval
Patient History
Physicians
Family Physician: none
Outpatient Manager Market: none
Inpatient Manager Market: Dr. Rodrigues
History of Present Illness
58-year-old with history of smoking and daily EtOH abuse Presented to [facility] on 06/11 with complaints of worsening chest pain/chest tightness. 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
exertional chest tightness during his exercise. At times the chest pain would radiate to his jaw. He did note that when he would stop exercising within a few minutes the symptoms would resolve. However he did note that as time progressed he would
have more chest tightness/discomfort at rest. Therefore he presented to the emergency room at [place] and an EKG showed ST depressions. He was given 3 doses of sublingual nitroglycerin which resolved his pain and he was started on an IV heparin
infusion for an NSTEMI. Today he was taken to the [facility] in which multivessel disease was found and CT surgery was consulted for surgical evaluation.
Past Medical History
Past Medical History: None
Past Surgical History
Past Surgical History: Orthopedic
Dental History
regular dental visits. last in february
Family History
Mother: N/A
Father: N/A
Family Medical History: Adopted
Social History
Alcohol: Daily (5-6 beers)
Drug: None and Former User
Tobacco: Former Smoker (Quit 15 years ago (but 30-year history of smoking) )
Personal:
Living: With Family
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
Allergies
Allergy/AdvReac Type Severity Reaction Status Date / Time
No Known Allergies Allergy Unverified 06/11/24 06:32
Home Medications
�Medication �Instructions �Recorded �Confirmed �Type
No Meds [No Current Medications] 06/11/24 06/11/24 History
Review of Systems
-
History Source: Patient
General: Reports No Symptoms
HEENT: Reports No Symptoms
Respiratory: Reports No Symptoms
Cardiac: Reports Chest Pain
Abdomen/GI: Reports No Symptoms
: Reports No Symptoms
Musculoskeletal: Reports No Symptoms
Skin: Reports No Symptoms
Neurological: Reports No Symptoms
Vascular: Reports No Symptoms
Physical Exam
Vital Signs
Temp 97.7 F 06/13/24 04:00
Temp route: Oral 06/13/24 04:00
Pulse 60 06/13/24 07:19
Rhythm: Normal sinus rhythm 06/12/24 19:45
Resp Rate 17 06/13/24 04:00
Blood pressure 133/93 06/13/24 07:19
Blood pressure extremity used: Right upper arm 06/13/24 04:00
Position: Lying 06/13/24 04:00
MAP (cuff-Michelle Monitor) 75 06/13/24 04:01
SaO2 94 06/13/24 04:01
Nasal Cannula flow liters per minute 95 06/11/24 14:59
Oxygen Mode of Delivery Room air 06/13/24 04:00
Can the patient verbally communicate their pain? Yes 06/12/24 22:11
Pain scale ratin 06/12/24 22:11
Actual Weight 78.3 kg 06/13/24 04:35
Body Mass Index (BMI) 25.5 06/13/24 04:35
Labs
06/13/24 04:08
06/13/24 04:08
APTT 142.7 Sec (23.4-35.0) H 06/13/24 04:08
Hemoglobin A1c 5.3 % (4.0-5.6) 06/11/24 12:36
Troponin I 9.370 ng/ml H* D 06/12/24 03:26
Exam
General: Well Developed, Well Nourished and No Apparent Distress
HEENT: Normocephalic
Respiratory: Clear
Cardiac: S1/S2
GI: Soft and Non Tender
Rectal: Deferred by Provider
Skin: Warm
Neuro: AO x 3
Extremities: Pulses (+1)
Lymph: No Lymphadenopathy
Psych: Calm
Assessment / Plan
-
58-year-old with no significant past medical history presented to [facility] after having 2 to 3 weeks of chest discomfort. He ruled in for an NSTEMI and was taken to the cardiac [facility] today. Catheter revealed multivessel disease and
CT surgery was consulted for surgical evaluation.
#CAD
-Patient's case will be discussed with attending physician. Further details regarding surgical timing intervention will be determined after attending physicians full evaluation
-Routine preoperative cardiothoracic surgery orders will be initiated.
-STS risk stratification score will be calculated after preoperative testing is complete
-Nitroglycerin and heparin gtt per cardiology
--- NOTE | 2024-06-13 09:19 | ITS.CL.CATH ---
[facility] - Catheterization
Cardiac Catheterization
Procedure Report:
LEFT HEART CATHETERIZATION
Date of Procedure: June 13, 2024
Referring: Dr. Freddie Rodrigues
PROCEDURES:
1. Left heart catheterization, coronary angiogram.
2. Ultrasound-guided access
INDICATION: NSTEMI
ACCESS: Right radial artery, 6 Nigerien sheath, under ultrasound guidance
HEMODYNAMICS : (mmHg)
AO (s/d) : 120/68
LV (s/d) : 124/8
LVEDP : 17
CORONARY FINDINGS
DOMINANCE: Right
LEFT MAIN: The left main artery is a large-caliber vessel which gives rise to the left anterior descending artery and the left circumflex artery. There is minimal luminal irregularities.
LEFT ANTERIOR DESCENDING: The left anterior descending artery is a small to medium caliber vessel which becomes diminutive in the mid to distal portion and does not end up supplying the apex. There is a large-caliber diagonal branch which has a 70
to 80% stenosis as it takes off from the LAD and ends up supplying the apex and providing imyj-[id number]-gjcbi collaterals.
CIRCUMFLEX: The left circumflex artery is a medium caliber vessel which gives rise to 1 major branching obtuse marginal branch., Mid left circumflex into OM branch has a area of significant ectasia with mid OM at the level of bifurcation of the
branches with a 80 to 85% hazy stenosis extending into the branches. The OM branches appear to be good bypass targets.
RIGHT CORONARY ARTERY: The right coronary artery is a large-caliber, dominant vessel which gives rise to the right posterior descending artery and a right posterolateral system. The RCA is a very ectatic vessel with mild to moderate diffuse
atherosclerotic plaque and a 60% focal stenosis in the distal portion. There is also a hazy 90% stenosis at the takeoff of the RPDA with what appears to be a possible dual PDA system with the proximal RPDA subtotally occluded and filling faintly
antegradely as well as with waak-mb-oibki collaterals.
SEDATION: 32 minutes of procedural sedation was utilized. An independent medical imaging specialist was present to assist with and help manage the patient's level of consciousness and physiologic status.
RADIATION SUMMARY: Fluoro Time (min): 3.3, Dose (mGy): 499.23, DAP (Gy.cm2) : 37.4
Closure Device: Vascular band over right radial artery, 10 cc of air.
CONCLUSIONS
1. Significant multivessel coronary artery disease.
2. Mildly elevated LVEDP at 17 mmHg.
RECOMMENDATIONS
1. Wean radial band per protocol.
2. Consult CT surgery for consideration for coronary artery bypass grafting with bypasses to diagonal (dimunitive LAD), left circumflex/OM, LPLB, RPDA, RPLB.
Ghislaine Coyle MD, FACC, [facility] [place]
[2024-06-13] MEDS: THIAMINE INJECTION 200 MG IV ×2 (09:38→20:18)
--- NOTE | 2024-06-13 09:57 | PTCARENOTE ---
received patient this am, patient remains on monitor, NSR, VSS. IV heparin @ 1200units/hr via left forearm. IV heparin was D/C'd, when laboratory tester came over to get patient for cath. report given to laboratory tester. patient returned with right R band intact,
o2 sat 95%. monitor shows NSR, VSS, no c/o CP. IV NSS @ 117cc/hr x 3 hours.
--- NOTE | 2024-06-13 13:56 | W.PN.HOSP.TC ---
Today's Communication/Plan
-
Monitor vital signs
see plan
CT surgery following
Continue aspirin, metoprolol
on Heparin
Assessment / Plan
Assessment / Plan
A/P: Patient is a 58y M with no significant PMH who presents to ED for evaluation of chest pain found to have an NSTEMI.
Chest Pain / ACS
- ischemic EKG changes
- Troponin peaked at 12.6
- continue IV Heparin
Cardiology following, status post cath with multivessel disease. CT surgery involved.
Aspirin
Continue metoprolol
statin
HLD
-new start statin
Alcohol Use Disorder
- Patient reports drinking 5-6 beers every day.
- Monitor for evidence of withdrawal during hospital stay.
- BZDs as needed for symptoms of withdrawal.
- Thiamine, folate, MVI replacement.
GI PPx - with alcohol use history and initiation of aspirin/heparin will start Protonix for GI PPx
DVT Prophylaxis: On IV heparin
Code Status: Full
General: No Apparent Distress
HEENT: PERRLA
Respiratory: Clear to Auscultation; Negative Wheezes
Cardiac: Regular Rhythm and S1/S2
GI: Soft and Nontender
Musculoskeletal: No Edema
Skin: Warm and Dry; Negative Rash
Neuro: AO x 3
Psych: Calm
Anticipated Discharge: > 48 hours
Subjective/Interval History
-
Date of Service: June 13, 2024
Denies pain
Objective Data
-
Labs:
Laboratory Results
06/13/24 06/13/24
04:08 11:45
WBC 7.3
Hgb 14.4
Hct 42.3
Plt Count 159
APTT 142.7 H Pending
Sodium 138
Potassium 4.2
Chloride 103
Carbon Dioxide 26
BUN 13
Creatinine 0.8
Glucose 111 H
Calcium 9.2
Vital Signs:
Vital Signs
Temp Pulse Resp BP Pulse Ox
98.5 F 61 18 124/58 94
06/13/24 11:08 06/13/24 12:45 06/13/24 11:08 06/13/24 12:00 06/13/24 12:00
I&O
06/12/24 06/13/24 06/14/24
06:59 06:59 06:59
Intake Total 268 / 268 452 / 452
Output Total 1300 / 1300
Balance -1032 / -1032 452 / 452
--- NOTE | 2024-06-13 14:38 | PTCARENOTE ---
patient returned from all his test, IV heparin restarted at 1200units/hr via left arm. Jenifer RECYCLABLE MATERIALS SORTER aware of IV in left arm, pink band placed for limb restriction. right and left BP obtained and recorded on flowsheet.
--- NOTE | 2024-06-13 14:48 | CM ---
Reviewed chart. Met with and Mrs. Rachel to review discharge plans. He states prior to admission he resides with his spouse in a two story home with three steps to enter. He states he has a full flight of steps to get to bedroom/full bathroom.
He states he has a powder room on he first floor. He states prior to admission he was independent with ambulation and adls. He states he does not have any DME in the home. He states he has a prescription plan and uses [facility]. His spouse
states she will try to see if she can building construction ironworker for the first week or so when he goes home to assist in his care if needed. Medical work-up in progress. The discharge plan is to return home with his spouse and a home visit by the
Transitional Care Nurse when medically stable.
We reviewed pre-op and post-op routines. We briefly reviewed the shower instructions. We also reviewed restrictions including sternal precautions and driving restrictions. We discussed a home visit by the Transitional Care Nurse. He is agreeable
to a home visit. The plan is for CABG on 06/15/24.
--- NOTE | 2024-06-13 15:19 | W.PN.UPDATE ---
Update Note
Progress Note Update
Procedure Type:�Isolated CABG
PERIOPERATIVE OUTCOME ESTIMATE %
Operative Mortality 0.506%
Morbidity & Mortality 3.62%
Stroke 0.742%
Renal Failure 0.352%
Reoperation 2.08%
Prolonged Ventilation 1.64%
Deep Sternal Wound Infection 0.101%
Long Hospital Stay (>14 days) 1.53%
Short Hospital Stay (<6 days)* 73.7%
Clinical Summary
Planned Surgery: Isolated CABG, Urgent, First cardiovascular surgery
Demographics: 58 year old, White, male, 78kg, 175cm, BMI: 25.5 kg/m�
Insurance/Payor: Commercial
Lab Values: Creatinine: 0.8 mg/dL, Hematocrit: 42.3%, WBC Count: 7.3 10�/�L, Platelet Count: 462998 cells/�L
Substance Abuse: Former smoker, Alcohol use: >=8 drinks/week
Risk Factors / Comorbidities: Hypertension
Cardiac Status: Ejection Fraction = 55%
Coronary Artery Disease: 3 vessels diseased, Non-ST Elevation NM, NM: 1 to 7 Days
Valve Disease: Trivial/Trace AR, Trivial/Trace MR, Trivial/Trace TR
[2024-06-13] MEDS: LIPITOR 80 MG PO (17:50)
[2024-06-13] MEDS: MIRALAX 17 GRAMS PO (17:50)
--- NOTE | 2024-06-13 18:12 | PTCARENOTE ---
Patient c/o constipation, TT CVPA ordered miralax, given as ordered.
[2024-06-13] MEDS: SENOKOT-S 1 TABLET PO (20:19)
[2024-06-13 20:47] LABS: APTT 44.6 Sec (23.4-35.0)
[2024-06-14] VITALS (7 sets, daily range): BP systolic 125–138; BP diastolic 75–86; BMI 25.3
--- NOTE | 2024-06-14 00:04 | PTCARENOTE ---
pt. received at change of shift, pt. seen and assessed in room with at bedside. pt AOx3, tele reading NSR, VS WNL. heparin gtt running at 1200units/hr, 8pm PTT drawn, PTT resulted not within therapeutic range. heparin titrated to 1400units/hr
per protocol, signed off with another RN as documented. call iyer within reach. continuing to monitor at this time.
[2024-06-14] MEDS: HEPARIN 25000 UNITS/250 ML IV ×2 (01:59→22:29)
[2024-06-14 02:40] LABS: % Basophils 0.5 % (0-2); % Immature Granulocytes 0.1 % (0-0.5); % Lymphocytes 22.1 % (20.5-51.1); % Monocytes 8.6 % (1.7-9.3); % Neutrophils 66.7 % (42.2-75.2); Absolute Eosinophils 0.2 10^3/uL (0-0.7); Absolute Lymphocytes 1.7 10^3/uL (1.2-3.4); Absolute Monocytes 0.6 10^3/uL (0.1-0.6); Hematocrit 40.6 % (39.0-52.0); Mean Corp Hgb Conc. 34.5 g/dL (33.0-37.0); Mean Corpuscular Hgb 32.7 pg (27.0-31.0); Mean Corpuscular Volume 94.9 fL (80.0-94.0); Mean Platelet Volume 9.7 fL (7.4-10.4); Nucleated Red Blood Cells % 0 % (-); Platelet Count 155 10^3/uL (130-400); Red Blood Cell Count 4.28 10^6/uL (4.70-6.10); Red Cell Dist. Width 11.9 % (11.5-14.5); White Blood Cell Count 7.5 10^3/uL (4.8-10.8)
[2024-06-14 03:00] LABS: ALT (SGPT) 34 U/L (0-50); AST (SGOT) 53 U/L (17-59); Albumin 3.9 g/dl (3.5-5.0); Alkaline Phosphatase 46 U/L (38-126); Blood Urea Nitrogen 13 mg/dl (9-20); Calcium 9.1 mg/dl (8.4-10.2); Carbon Dioxide 26 mmol/L (22-30); Chloride 104 mmol/L (98-107); Direct Bilirubin 0.1 mg/dl (0.0-0.4); Estimated Creatinine Clearance 116 ml/min; GGTP 42 U/L (15-73); Glucose 96 mg/dl (70-99); INR 1.09; PT 14.6 Sec (11.4-14.6); Potassium 3.8 mmol/L (3.5-5.1); Sodium 137 mmol/L (135-145); Total Bilirubin 0.6 mg/dl (0.2-1.3); Total Protein 6.4 g/dl (6.3-8.2); eGFR > 60.00
[2024-06-14 03:02] LABS: APTT 91.1 Sec (23.4-35.0); APTT 93.5 Sec (23.4-35.0)
--- NOTE | 2024-06-14 06:00 | W.PN.CT ---
Today's Communication / Plan
-
Plan:
-Cont. current medical management per primary team
-Cont. current meds (ASA, Heparin, Lipitor, Toprol XL, Thiamine, Folic Acid; will place hold on Norvasc)
-Avoid JASEN-I/ARBs/CCB 48hrs prior to OR
-Ongoing preop workup
-Replete K, 3.8
-Cont. to monitor for Delirium Tremens
-For CABG by Dr. Tatum tomorrow, 06/15/24
-Will cont. to closely monitor
Assessment / Plan
-
Assessment:
-Severe 3v CAD
-NSTEMI (peak trop 12.6)
-[place]
-HLD
-Former tobacco use (quit 15 years ago)
-Daily ETOH use (5-6 beers/daily)
Discussed patient care with: Cardiology, Nursing and Care Team
Subjective
-
Date of Service: June 14, 2024
C/O dry cough overnight. Denies CP/SOB
Objective Data
-
Lab Results
06/14/24 02:02
06/14/24 02:02
PT 14.6 Sec (11.4-14.6) 06/14/24 02:02
INR 1.09 06/14/24 02:02
APTT 91.1 Sec (23.4-35.0) H 06/14/24 02:02
APTT 93.5 Sec (23.4-35.0) H 06/14/24 02:02
Vital Signs
Vital Signs
Temp Pulse Resp BP Pulse Ox
98.2 F 71 17 126/76 93
06/14/24 02:02 06/14/24 02:02 06/14/24 02:02 06/14/24 02:02 06/14/24 02:02
CT Intake/Output/Weight
06/13/24 06/13/24 06/14/24
06:59 18:59 06:59
Intake Total 452 / 452 288 / 815 527 / 815
Output Total 600 / 600
Balance 452 / 452 -312 / 215 527 / 215
SaO2: 93 (RA)
Physical Exam
-
General: Awake, Oriented and AOx3
Cardiovascular: Regular rate & rhythm, No Murmurs, No Rub and No Gallop
Respiratory: Clear
Extremities: No Edema
Data Reviewed
-
Lab Results: Results Reviewed
Medications: Active Meds Reviewed
Chest X-Ray: Report Reviewed and Image Reviewed
ECG: Report Reviewed and Image Reviewed
[2024-06-14] MEDS: KCL 20 MEQ PO (06:13)
[2024-06-14] MEDS: FOLVITE 1 MG PO (07:41)
[2024-06-14] MEDS: VITAMIN B1 100 MG PO ×2 (07:42→19:13)
[2024-06-14] MEDS: PROTONIX 40 MG PO (07:42)
[2024-06-14] MEDS: TOPROL XL 25 MG PO ×2 (07:42→19:13)
[2024-06-14] MEDS: LOW STRENGTH ASPIRIN 81 MG PO (07:42)
[2024-06-14] MEDS: SENOKOT-S 1 TABLET PO ×2 (07:42→19:14)
[2024-06-14] MEDS: OCEAN, SALINE MIST NASAL (07:43)
[2024-06-14 08:23] LABS: APTT 124.7 Sec (23.4-35.0)
--- NOTE | 2024-06-14 09:28 | W.PN.CARDCBS ---
Today's Communication / Plan
-
Reviewed cath. Cath showed multivessel CAD and plan is for CABG with Dr Tatum Jun 15 2024.
He remains cp free on IV Heparin.
Echo Jun 13 2024 showed normal function with no significant valve disease.
Cont Toprol. Eventual ACEI.
HR and bp improved.
Lipitor 80 mg daily added for hx CAD and LDL 165. Goal LDL at least < 70. Recheck lipids as outpt.
Impression / Plan
-
.
PCP: None
Cardiology: None prior to admission
Impression:
Chest pain-presented with unstable angina, Abnormal EKG with ST depressions anterolaterally
NSTEMI, peak trop 12.6
Multivessel CAD
HTN
Mixed hyperlipidemia
Recent EtOH use
Left heart cath June 13, 2024
HEMODYNAMICS : (mmHg)
AO (s/d) : 120/68
LV (s/d) : 124/8
LVEDP : 17
CORONARY FINDINGS
DOMINANCE: Right
LEFT MAIN: The left main artery is a large-caliber vessel which gives rise to the left anterior descending artery and the left circumflex artery. There is minimal luminal irregularities.
LEFT ANTERIOR DESCENDING: The left anterior descending artery is a small to medium caliber vessel which becomes diminutive in the mid to distal portion and does not end up supplying the apex. There is a large-caliber diagonal branch which has a 70
to 80% stenosis as it takes off from the LAD and ends up supplying the apex and providing dmrp-tw-ezmjo collaterals.
CIRCUMFLEX: The left circumflex artery is a medium caliber vessel which gives rise to 1 major branching obtuse marginal branch., Mid left circumflex into OM branch has a area of significant ectasia with mid OM at the level of bifurcation of the
branches with a 80 to 85% hazy stenosis extending into the branches. The OM branches appear to be good bypass targets.
RIGHT CORONARY ARTERY: The right coronary artery is a large-caliber, dominant vessel which gives rise to the right posterior descending artery and a right posterolateral system. The RCA is a very ectatic vessel with mild to moderate diffuse
atherosclerotic plaque and a 60% focal stenosis in the distal portion. There is also a hazy 90% stenosis at the takeoff of the RPDA with what appears to be a possible dual PDA system with the proximal RPDA subtotally occluded and filling faintly
antegradely as well as with iqsl-cj-rzacn collaterals.
Echo Jun 13 2024: EF 55% with no significant valve disease.
Plan:
-Presented with chest pain. Initially started as exertional chest pain that would resolve with rest, however last night developed severe chest tightness while at rest prompting ER evaluation.
-3 to 4 weeks of unstable angina.
Reviewed cath. Cath showed multivessel CAD and plan is for CABG with Dr Tatum Jun 15 2024.
He remains cp free on IV Heparin.
Echo Jun 13 2024 showed normal function with no significant valve disease.
Cont Toprol. Eventual ACEI.
HR and bp improved.
Lipitor 80 mg daily added for hx CAD and LDL 165. Goal LDL at least < 70. Recheck lipids as outpt.
HPI: Tushar is a 58-year-old male with no significant past medical history. He presents to ER for evaluation of progressively worsening chest tightness. He reports that typically he exercises on the treadmill 3 miles every day, however
approximately 2 to 3 weeks ago he started noting exertional chest tightness during his exercises. He states approximately nursing home through his workout he was started to have chest tightness along the left side of his chest with radiation to his jaw.
He would stop exercising and within a few minutes his symptoms were resolved. Throughout the past couple of weeks, he notes that the chest tightness started happening with less and less exertion, and over the past few days he was only able to
exercise for a few minutes before he needed to stop due to his symptoms. Pain resolved shortly after resting, however but with any resumption of exercise would return. Last evening while sitting on the couch resting, he had more severe chest
tightness with radiation into his jaw that occurred while at rest. As he had not previously had rest symptoms, he decided to come into the ER for evaluation. In ER, initial ECG concerning with anterolateral ST depressions. He was given 3 doses of
sublingual nitroglycerin and pain resolved. Initial troponin negative. Given story concerning for angina with abnormal EKG, he has been admitted and started on IV heparin. Cardiology consulted for evaluation. He notes he does not follow
regularly with doctors and has had no recent lab work or doctors visits other than to traffic technician. During dermatology visits, he notes his blood pressure has been elevated, however he is not on any antihypertensive medications. Currently he is
pain-free and is resting comfortably in stretcher.
Progress Note - [employer] Inspector
Subjective
Date of Service: June 14, 2024
Pt seen and examined. No complaints. No chest pain or shortness of breath.
Objective
Labs:
06/14/24 02:02
06/14/24 02:02
Labs
Hgb 14.0 g/dL (13.0-18.0) 06/14/24 02:02
Hct 40.6 % (39.0-52.0) 06/14/24 02:02
Plt Count 155 10^3/uL (130-400) 06/14/24 02:02
PT 14.6 Sec (11.4-14.6) 06/14/24 02:02
INR 1.09 06/14/24 02:02
APTT 124.7 Sec (23.4-35.0) H 06/14/24 07:59
Sodium 137 mmol/L (135-145) 06/14/24 02:02
Potassium 3.8 mmol/L (3.5-5.1) 06/14/24 02:02
BUN 13 mg/dl (9-20) 06/14/24 02:02
Creatinine 0.7 mg/dL (0.7-1.3) 06/14/24 02:02
Glucose 96 mg/dl (70-99) 06/14/24 02:02
Troponins
06/11/24 06/11/24 06/11/24
12:36 13:40 19:30
Troponin I 12.300 H* 12.300 H* Cancelled
06/11/24 06/11/24 06/11/24
19:30 20:48 22:54
Troponin I Cancelled 12.600 H* Cancelled
06/12/24
03:26
Troponin I 9.370 H* D
Vital Signs and I&O:
Vital Signs
Temp Pulse Resp BP Pulse Ox
98.6 F 67 18 131/75 99
06/14/24 07:38 06/14/24 07:42 06/14/24 07:38 06/14/24 07:42 06/14/24 07:38
Vital Signs
Temp Pulse Resp BP Pulse Ox
98.6 F 67 18 131/75 99
06/14/24 07:38 06/14/24 07:42 06/14/24 07:38 06/14/24 07:42 06/14/24 07:38
Intake & Output
06/12/24 06/13/24 06/14/24 06/15/24
06:59 06:59 06:59 06:59
Intake Total 268 / 268 452 / 452 815 / 815
Output Total 1300 / 1300 600 / 600
Balance -1032 / -1032 452 / 452 215 / 215
Physical Exam
Physical Exam
General: No acute distress, AAOX3
Neck: Negative JVD
Heart: Regular, Negative S3 positive S1/S2, Negative S4, No murmur
Lungs: CTA b/l, negative wheezes/rales/rhonchi
Abd: Positive BS, NT/ND, neg rebound/rigidity/guarding
Ext: Negative cyanosis/clubbing/edema
Neuro: nonfocal
--- NOTE | 2024-06-14 11:29 | PTCARENOTE ---
Assumed care of pt at change of shift. NSR on tele with HR 60s-70s. Denies CP at this time. Heparin gtt currently infusing at 1300units/hr. CAD booklet at bedside, plan of care discussed regarding CVOR prep for tomorrow. Ambulating independently
without difficulty. PFTs completed at bedside. Call iyer within reach.
--- NOTE | 2024-06-14 13:51 | W.PN.HOSP.TC ---
Today's Communication/Plan
-
monitor vitals
see plan
plan for CABG
statin
on hep
Assessment / Plan
Assessment / Plan
A/P: Patient is a 58y M with no significant PMH who presents to ED for evaluation of chest pain found to have an NSTEMI.
Chest Pain / ACS
- ischemic EKG changes
- Troponin peaked at 12.6
- continue IV Heparin
Cardiology following, status post cath with multivessel disease. CT surgery involved. plan for CABG
Aspirin
Continue metoprolol
statin
HLD
statin
Alcohol Use Disorder
- Patient reports drinking 5-6 beers every day.
- Monitor for evidence of withdrawal during hospital stay.
- BZDs as needed for symptoms of withdrawal.
- Thiamine, folate, MVI replacement.
GI PPx - with alcohol use history and initiation of aspirin/heparin will start Protonix for GI PPx
DVT Prophylaxis: On IV heparin
Code Status: Full
General: No Apparent Distress
HEENT: PERRLA
Respiratory: Clear to Auscultation; Negative Wheezes
Cardiac: Regular Rhythm and S1/S2
GI: Soft and Nontender
Musculoskeletal: No Edema
Skin: Warm and Dry; Negative Rash
Neuro: AO x 3
Psych: Calm
Anticipated Discharge: > 48 hours
Subjective/Interval History
-
Date of Service: June 14, 2024
denies pain
Objective Data
-
Labs:
Laboratory Results
06/14/24 06/14/24 06/14/24
02:02 02:02 07:59
WBC 7.5
Hgb 14.0
Hct 40.6
Plt Count 155
PT 14.6
INR 1.09
APTT 93.5 H 91.1 H 124.7 H
Sodium 137
Potassium 3.8
Chloride 104
Carbon Dioxide 26
BUN 13
Creatinine 0.7
Glucose 96
Calcium 9.1
Total Bilirubin 0.6
AST 53
ALT 34
Alkaline Phosphatase 46
06/14/24
14:30
WBC
Hgb
Hct
Plt Count
PT
INR
APTT Pending
Sodium
Potassium
Chloride
Carbon Dioxide
BUN
Creatinine
Glucose
Calcium
Total Bilirubin
AST
ALT
Alkaline Phosphatase
Vital Signs:
Vital Signs
Temp Pulse Resp BP Pulse Ox
98.8 F 75 18 125/78 96
06/14/24 11:28 06/14/24 12:00 06/14/24 11:28 06/14/24 11:31 06/14/24 11:28
I&O
06/13/24 06/14/24 06/15/24
06:59 06:59 06:59
Intake Total 452 / 452 815 / 815
Output Total 600 / 600
Balance 452 / 452 215 / 215
--- NOTE | 2024-06-14 14:20 | CM ---
Chart reviewed. Patient's son and at bedside. Patient is independent of ADLS, lives with his in a 2 STH, 3 RENE, 0 DME[address] Patient going for [address] Surgery in AM. Plan is for the patient to return home with CT Surgery Transitional RN. CM to
follow
[2024-06-14] MEDS: MIRALAX 17 GRAMS PO (15:39)
--- NOTE | 2024-06-14 16:22 | W.CVOR.SURPR ---
CVOR Surgeon Immed Pre Op
-
I have examined this patient prior to performance of the scheduled procedure.
The patient's condition is unchanged from the time of the dictated/written History and
Physical and the patient is able to undergo the scheduled procedure.
CABG + GREG Clip
[2024-06-14] MEDS: LIPITOR 80 MG PO (18:41)
[2024-06-14] MEDS: OCEAN, SALINE MIST 1 SPRAYS NASAL (19:13)
[2024-06-14] MEDS: DULCOLAX 10 MG RECTAL (22:29)
--- NOTE | 2024-06-14 22:56 | PTCARENOTE ---
assumed care of patient at the change of shift. AAOx3. at the bedside. independent in the room. denies any cp/sob. SR on tele 70s-90s. bp stable. heparin gtt infusing per protocol. reviewed plan of care with patient and verbalized
understanding. NPO at midnight for CVOR in AM. OR prep completed with no issues. patient states feeling 'full and bloated' from constipation. Ed Leisa CV PA updated. suppository ordered and given-see mar. educated patient to inform RN with any
changes overnight. call iyer within reach.
[2024-06-15 05:36] VITALS: BP 126/73
[2024-06-15 05:55] LABS: Hematocrit 41.1 % (39.0-52.0); Hemoglobin 14.3 g/dL (13.0-18.0); Mean Corp Hgb Conc. 34.8 g/dL (33.0-37.0); Mean Corpuscular Hgb 32.7 pg (27.0-31.0); Mean Corpuscular Volume 94.1 fL (80.0-94.0); Mean Platelet Volume 9.5 fL (7.4-10.4); Platelet Count 145 10^3/uL (130-400); Red Blood Cell Count 4.37 10^6/uL (4.70-6.10); Red Cell Dist. Width 11.9 % (11.5-14.5); White Blood Cell Count 5.5 10^3/uL (4.8-10.8)
[2024-06-15 06:00] VITALS: BMI 25.0
--- NOTE | 2024-06-15 06:00 | PTCARENOTE ---
patient states having a BM overnight. states feeling better. slept well. no chest pain/sob. SB/SR on tele 50s-60s. AM OR prep completed per patient. NPO since midnight.
[2024-06-15 06:05] LABS: APTT 143.5 Sec (23.4-35.0)
[2024-06-15 06:10] VITALS: BP 136/71
[2024-06-15] MEDS: BACTROBAN 2% OINTMENT 1 APPLIC NASAL ×2 (06:11→20:06)
[2024-06-15] MEDS: LOPRESSOR 25 MG PO (06:12)
[2024-06-15] MEDS: MAGNESIUM OXIDE 500 MG PO (06:12)
[2024-06-15] MEDS: PROTONIX 40 MG PO (06:12)
[2024-06-15 07:47] LABS: ACT+ - POC 126 Seconds (82-134)
[2024-06-15 08:50] LABS: Urine Albumin Negative (Neg - Trace); Urine Bilirubin Negative (Negative); Urine Character Clear (Clear); Urine Color Yellow; Urine Glucose Negative (Negative); Urine Ketone Negative (Negative); Urine Leukocyte Negative (Negative); Urine Nitrite Negative (Negative); Urine Occult Blood Negative (Negative); Urine Urobilinogen Negative (Neg - 1+)
[2024-06-15 09:24] LABS: ACT+ - POC 544 Seconds (82-134)
[2024-06-15 09:48] LABS: B.E. - POC -1.3 mmol/L; Glucose - POC 110 mg/dl (70-99); HCO3 - POC 22 mmol/L (21-28); Hematocrit - POC 41 % PCV (42-52); Hemodilution- POC No; Ionized Calcium - POC 1.22 mmol/L (1.15-1.33); O2 Saturation %Calculated-POC 98.5 % (94-98); PCO2 - POC 34 mmHg (35-48); PO2 - POC 111 mmHg (83-108); Potassium - POC 3.8 mmol/L (3.5-5.1); Sodium - POC 141 mmol/L (136-145); Specimen Type - POC Arterial; pH - POC 7.43 (7.35-7.45)
[2024-06-15 10:00] LABS: ACT+ - POC 552 Seconds (82-134)
[2024-06-15 10:22] LABS: B.E. - POC 2.5 mmol/L; Glucose - POC 150 mg/dl (70-99); HCO3 - POC 28 mmol/L (21-28); Hematocrit - POC 32 % PCV (42-52); Hemodilution- POC Yes; Hemoglobin Calculated - POC 10.8; Ionized Calcium - POC 1.08 mmol/L (1.15-1.33); O2 Saturation %Calculated-POC 99.8 % (94-98); PCO2 - POC 48 mmHg (35-48); PO2 - POC 241 mmHg (83-108); POC Comment CPB; Potassium - POC 5.3 mmol/L (3.5-5.1); Sodium - POC 137 mmol/L (136-145); Specimen Type - POC Arterial; pH - POC 7.38 (7.35-7.45)
[2024-06-15 10:41] LABS: ACT+ - POC 538 Seconds (82-134)
[2024-06-15 11:01] LABS: B.E. - POC -1.3 mmol/L; Glucose - POC 244 mg/dl (70-99); HCO3 - POC 24 mmol/L (21-28); Hematocrit - POC 39 % PCV (42-52); Hemodilution- POC Yes; Hemoglobin Calculated - POC 13.4; Ionized Calcium - POC 1.08 mmol/L (1.15-1.33); O2 Saturation %Calculated-POC 99.6 % (94-98); PCO2 - POC 40 mmHg (35-48); PO2 - POC 175 mmHg (83-108); POC Comment CPB; Sodium - POC 137 mmol/L (136-145); Specimen Type - POC Arterial; pH - POC 7.38 (7.35-7.45)
[2024-06-15 11:12] LABS: ACT+ - POC 509 Seconds (82-134)
[2024-06-15 11:25] LABS: ACT+ - POC 120 Seconds (82-134)
[2024-06-15] MEDS: FOLVITE PO (11:37)
[2024-06-15] MEDS: VITAMIN B1 PO (11:38)
[2024-06-15] MEDS: SENOKOT-S PO (11:38)
[2024-06-15] MEDS: PROTONIX PO (11:38)
[2024-06-15] MEDS: TOPROL XL PO (11:38)
[2024-06-15] MEDS: LOW STRENGTH ASPIRIN PO (11:38)
[2024-06-15] MEDS: OCEAN, SALINE MIST NASAL (11:38)
[2024-06-15 11:45] LABS: B.E. - POC -2.2 mmol/L; Glucose - POC 235 mg/dl (70-99); HCO3 - POC 24 mmol/L (21-28); Hematocrit - POC 39 % PCV (42-52); Hemodilution- POC Yes; Hemoglobin Calculated - POC 13.1; O2 Saturation %Calculated-POC 96.3 % (94-98); PCO2 - POC 42 mmHg (35-48); PO2 - POC 88 mmHg (83-108); POC Comment POST; Sodium - POC 138 mmol/L (136-145); Specimen Type - POC Arterial; pH - POC 7.35 (7.35-7.45)
[2024-06-15] MEDS: NEURONTIN PO (11:52)
[2024-06-15] MEDS: FLEXERIL PO (11:52)
--- NOTE | 2024-06-15 12:05 | W.PN.CT.SURG ---
CT Surgery Operative Note
-
CARDIAC SURGERY OPERATIVE REPORT
Preoperative Diagnosis: Multivessel Coronary Artery Disease with NSTEMI
Postoperative Diagnosis: Same
Procedure(s) Performed:
1. Sternotomy with standard aortic and right atrial cannulation
2. Coronary artery bypass grafting x 5 (In situ BERTRAND to LAD proper, Ao to RSVG to large diagonal, Ao to left radial to both branches of OM, ao to RSVG to RPDA),
3. Endoscopic vein harvesting of right lower extremity
4. Endoscopic left radial artery harvest
5. Left atrial appendage exclusion [40 mm]
6. Transesophageal echocardiography
7. Placement of temporary ventricular pacing wire
8. Parasternal block by anesthesia
Date of Surgery: 06/15/2024
Comorbidities:
1. Multivessel coronary artery disease involving the proximal LAD
2. Hyperlipidemia
3. Acute coronary syndrome�NSTEMI
4. Daily EtOH consumption
5. Former tobacco abuse
Attending Surgeon: Fernando Tatum MD, MS
Assistants: Radha Becker PA-C (present and necessary to first calender worker, endoscopic vein harvest, retraction, suction, exposure, suture management, and wound closure under my direction), Fernando Leyva PA-C (endo radial artery harvest)
Anesthesiology: Maurilio Staples MD
Scrub and Circulating RNs: Evelia Clark RN, Ignacio Mckeon, RN and Mary Lou Veloz RN
Die Cast Supervisor: Tamera Wall CCP
Anesthesia: GETA
EBL: per perfusion records
Products: None
CPB Time: 104 minutes
Aortic Cross Clamp Time: 91 minutes
Indication(s) for Procedures: This is a 58-year-old male who presented with an NSTEMI after experiencing exertional chest tightness and pain. He was found to have severe multivessel coronary artery disease. His STS was reviewed, given his disease
pattern and young age, multidisciplinary shared decision making was to pursue surgical revascularization. Given his NSTEMI as well as his age, he had an elevated [id number] score and so his left atrial appendage will be manage at time of surgery
Conduit(s) Quality:
BERTRAND -excellent/skeletonized, good quality graft with excellent flow and caliber
RSVG -excellent/minor varicosities but overall uniform in size with minimal inflammation
Left radial�excellent good length and no areas of dissection
Target(s) Quality:
RCA/PDA -good/accommodated a 1.5 mm probe easily, vein graft was performed here with a mean flow of approximately 20-30 on flow probe with a minimal amount of pulsatility index
OM branches x 2-good/smaller caliber vessels and relatively thin-walled but supplied a good portion of the inferior wall, mean flow on test dosing of antegrade of approximately 40 to 50 cc a minute at a pressure of 80 mmHg. Flow probe was also used
to assess with acceptable flows and pulsatility index
Diagonal�very large caliber vessel with a lot of proximal disease, mean flow approximately 30-35 on flow probe with a minimal amount of pulsatility index
LAD -was able to find a good caliber LAD vessel that appeared to be heading towards the apex/after grafting and releasing of the bulldog clamp, those visual flow that was feeling both antegrade and retrograde into the second bifurcating branch of
the LAD, flow probe assessment with good mean flow and pulsatility index
Findings: His left ventricular ejection fraction preoperatively was found to be 60% with no regional wall motion abnormalities. Following surgery his EF remained the same with no new regional wall motion abnormalities. His left atrial appendage
was verified to be free of any thrombus or debris preoperatively and found to be totally occlusive postoperatively.. The BERTRAND was harvested in a skeletonized fashion. After dissecting out the LAD proper it appeared to be an adequately sized vessel
and so the BERTRAND was grafted here. Upon removal of the bulldog clamp there was both antegrade and retrograde flow into the second LAD branch as it appeared to be a bifurcating vessel on his left heart cath. There was a significant amount of pinking
up of myocardium with the bulldog off. Following bypass grafting, test dose cardioplegia was given down each distal and confirmed patency and hemostasis. Flow probe was used to assess all grafts and conclusion of the case. He did not require any
inotropic support. He did not require any blood products. He regained sinus rhythm and did not require any pacing. EKG was isoelectric with no ST elevation.
Description of Procedure: The patient was taken to the operating room. Their identity and procedure to be performed were verified and they were positioned supine on the operating table. Induction via general anesthesia with endotracheal intubation
was performed and central venous access and arterial monitoring were inserted. A preoperative transesophageal echocardiogram was performed to assess cardiac function and valvular function. The patient was then prepped and draped from chin to feet in
a sterile fashion. A preoperative time-out was performed with all members of the team present. A midline chest incision was performed along with median sternotomy. Simultaneous endoscopic access of the left radial and lower extremity for saphenous
vein harvest was obtained along with administration of an initial 5,000 units of IV heparin. A RulTract sternal retractor was positioned to exposure the left internal mammary bed. The mammary was harvested and found to have good flow. A bulldog
clamp was applied to the distal end of the mammary after dividing it. It was wrapped in a papaverine soaked RayTec and replaced back into the left hemithorax. The RulTract was exchanged for a median sternal retractor. The innominate vein was
isolated. Full heparinization was given (a total of 40 units). We created a pericardial well. The aortic cannulation site was chosen where it was soft, pliable, and free of calcium. Cannulation was performed with an arterial cannula in the ascending
aorta and a triple-stage venous cannula through the right atrial appendage. The arterial cannula line had an appropriate bounce and correlating pressures with test dosing. Next, a root vent/antegrade cannula was inserted into the ascending aorta.
The ACT was confirmed to be over 400 and retrograde autologous priming was performed before commencing cardiopulmonary bypass. The pulmonary artery was away from the aorta to facilitate a clamp site. The aortic cross-clamp was placed after
decreasing the flow on the bypass and mean arterial pressure. A total of 1.2L initial dose of antegrade Del-Nido cardioplegia solution was given and planned for re-dosing every 75 minutes as necessary. There was rapid electro-mechanical arrest of
the heart at 250 cc of cardioplegia. The left ventricle was observed for distention on echocardiogram and manual palpation. Cold slush was placed into a sponge and topically on the RV while we systemically cooled to 34 degrees centigrade. Once the
heart was fully arrested and it was rotated medially and the left atrial appendage was clipped with a 40 mm device after dividing the ligament of Emiliano.
I positioned the heart to expose the bifurcating OM. A [place] blade was used to expose the coronary and perform the arteriotomy at both branches . Coronary Anand scissors were used to enlarge the incisions. The left radial artery was trimmed and
beveled to an appropriate size. The distal anastomosis was performed using 7-0 prolene in an end-to-side fashion. Antegrade cardioplegia was administered into the graft. Appropriate hemostasis and flow were confirmed. The graft was then positioned
in order to accommodate a sequential to the second branch. A small arteriotomy on the underbelly of the left radial and [id number]-[id number] anastomosis was done with 7-0 Prolene in a running fashion. Again test dosing of antegrade was given down the
graft in order to confirm hemostasis and also flow. The graft was measured for length to the aorta and cut. A suitable site on the RPDA was chosen. We dissected and prepared the distal target in a similar fashion. An end-to-side anastomosis was
created with a 7-0 prolene. Antegrade cardioplegia was administered into the graft. Appropriate hemostasis and flow were confirmed. The graft was measured for length to the aorta and cut. Initially, I was tempted to graft the BERTRAND to the large
diagonal vessel as on catheterization the LAD proper appeared to be diminutive, however after dissecting out the vessel it appeared to be of decent caliber surgically and so I opted to perform the vein graft to the large diagonal vessel as there was
significant mount of proximal disease. The vein was beveled in the usual fashion and a small coronary arteriotomy was created and enlarged with Anand scissors. An end-to-side anastomosis was created with the remaining piece of vein using 7-0
Prolene. Test dose of antegrade down the graft yielded excellent flow. A suitable target on the mid/distal left anterior descending was identified. We dissected and prepared the distal target in a similar fashion. We retrieved the BERTRAND from the
chest and created a pericardial opening while being cognizant of the phrenic nerve to facilitate the course of the mammary. The distal end of the mammary was prepped and beveled to size. We verified orientation and length of the JONNY and found brisk
flow. An end-to-side anastomosis was created with a 8-0 prolene and secured with a micro corknot. We temporarily released the bulldog clamp on the mammary to inspect flow. Perfusion to the LAD territory was visualized and hemostasis was confirmed
with retrograde filling into the second LAD branch as it appeared to be a bifurcating vessel on his left heart cath. There was a remarkable amount of pinking up of the myocardium as well the bull clamp was replaced on the mammary. The heart was
filled and the root was distended with antegrade cardioplegia to make final assessment of graft length and orientation. We created 3 aortotomies using a #11 blade then a 4.0mm aortic punch. The proximal anastomoses were created in an end-to-side
fashion using 6-0 prolene and 7-0 Prolene for the radiograph. At the the same time, we re-warmed to 36.5 degrees centigrade. The bulldog clamp was removed from the mammary. Temporary bipolar ventricular pacing wires were placed on the base of the
right ventricle. The patient was placed in a Trendelenburg position and flows on bypass were lowered. The aortic cross clamp was removed and flows were slowly brought back up. All bypass grafts were inspected and were free from kinking or twisting.
The distal and proximal anastomoses appeared hemostatic. Once transesophageal echocardiography appeared satisfactory for de-airing, the flows were temporarily lowered for root vent removal. After verifying acceptable parameters, we initiated
weaning from cardiopulmonary bypass. Once we were off cardiopulmonary bypass, the venous cannula was clamped and removed. A test dose of protamine was administered and the patient was monitored for any adverse reaction before resuming protamine.
Once half of the protamine dose was delivered, pump suckers were turned off and the systolic blood pressure was lowered for aortic decannulation. The aortic cannula was removed and pursestrings were tied down. All cannulation sites were oversewn
with a 4-0 prolene. The mammary bed was inspected and hemostasis was confirmed. Once the mediastinum was hemostatic, 19Fr Raul drain was placed in the left pleural cavity and two 24Fr Raul drains were placed within the pericardium. The sternum was
approximated with 4 #7 single and 3 #8 double stainless steel wires. Fascia was approximated with #1 vicryl suture. The subcutaneous, dermis and epidermis were closed in layers in a running fashion. The skin wound was cleansed and dressed.
All instrument, sponge, and needle counts were confirmed to be correct x 2 at the end of the operation. The patient was transferred to the cardiac intensive care unit in critical but stable condition.
I, Dr. Fernando Tatum, was present, scrubbed for, and performed all critical elements of this procedure.
Fernando Tatum MD, MS
Cardiothoracic Surgeon
[facility]
This operative dictation was created using the [email or web address] dictation system. Please excuse any grammatical, typographical, or 'sound alike' errors
--- NOTE | 2024-06-15 12:26 | W.PN.UPDATE ---
Update Note
Progress Note Update
58-year-old male was admitted to [facility] on 06/11/24 with worsening chest pain/chest tightness and ruled in for NSTEMI (troponin 12). Left heart catheterization revealed 3 vessel coronary disease
IV fluids: 1300
U.O.:� 500
Blood:� none
Wires:� bipolar V-wire
Inotropes:� none
Pressors:� Levophed @ 4
Sedatives:� Precedex
�
NEURO: sedated on Precedex, pupils +2mm B/L
RESP: #8OT @24cm> 500/40%/14/5. Lungs clear B/L. 2 mediastinal (10cc on arrival) and L pleural (10cc on arrival) chest tubes to -20cm suction. Sanguineous drainage
CV: RRR +S1, S2, no S3, no�rub, no murmur. Dermabond to median sternotomy. RIJ w/slick
ABD: round, soft, no BS
EXT: no edema, +2/4 DP pulses B/L, no femoral bruit, RLE & LUE JASEN wrap intact; right radial A-line intact
: Olivarez with clear yellow urine
�
A/P: POD #0 s/p CABG x 5 (BERTRAND to LAD proper, SVG to large diagonal, left radial to both branches of OM, SVG to RPDA), left atrial appendage exclusion [#40 mm clip]
FISH: EF�55-60%
- wean and extubate
- calcium claudia for radial graft patency
# CAD
- will require ASA/Plavix, statin, beta-claudia
�
# acute surgical blood loss anemia-expected
- trend CBC
�
�
[2024-06-15 12:28] LABS: Glucose - Point of Care 195 mg/dl (70-99)
[2024-06-15 12:34] LABS: HCO3 23.7 mmol/L (21-28); Ionized Calcium 1.33 mMOL/L (1.15-1.33); O2 Saturation % 98.3 % (94-98); PCO2 43 mmHg (35-48); PO2 89 mmHg (83-108); Potassium 4.4 mMOL/L (3.5-5.1); Sodium 134 mMOL/L (136-145); pH 7.35 (7.35-7.45)
[2024-06-15] MEDS: VERSED 0.5 MG IV (12:37)
[2024-06-15] MEDS: NSS 500 IV (12:38)
[2024-06-15] MEDS: ANCEF 10 IV ×2 (12:38)
[2024-06-15 12:41] LABS: Hemoglobin 12.4 g/dL (13.0-18.0); Platelet Count 140 10^3/uL (130-400)
[2024-06-15 12:44] LABS: INR 1.27; PT 16.5 Sec (11.4-14.6)
[2024-06-15 12:45] LABS: APTT 30.7 Sec (23.4-35.0); Blood Urea Nitrogen 15 mg/dl (9-20); Estimated Creatinine Clearance 91 ml/min; Glucose 186 mg/dl (70-99); Magnesium 3.3 mg/dl (1.6-2.3)
[2024-06-15 13:01] LABS: Glucose - Point of Care 169 mg/dl (70-99)
--- NOTE | 2024-06-15 13:15 | PTCARENOTE ---
Patient received from CVOR s/p CABG x 5/LAAL. RIJ Cordis w/kvo infusing. CVP via RIJ, R radial arterial line - both leveled, flushed, and calibrated w/good waveforms returned. Epicardial V-wire to pulse generator at back up rate 30bpm, no spikes
noted. Mediastinal chest tubes x 2, Y-connected to one pleureva, L pleural chest tube to separate collection chamber - both to -20cm suction w/no air leaks noted. Olivarez catheter to gravity. All procedural sites stable. Labs drawn, EKG performed,
pcxr obtained. Family to bedside. See work list for full assessment, interventions performed, and intravenous infusions and titrations.
[2024-06-15] MEDS: OFIRMEV 100 IV (13:55)
[2024-06-15] MEDS: TYLENOL PO (13:57)
--- NOTE | 2024-06-15 13:59 | W.PN.UPDATE ---
Update Note
Progress Note Update
Patient went for CABG. Medicine will sign off. Please call if any questions.
[2024-06-15 14:00] LABS: Glucose - Point of Care 135 mg/dl (70-99)
[2024-06-15] MEDS: LR 250 ML IV ×2 (14:02→16:16)
[2024-06-15 14:06] VITALS: BP 87/61
--- NOTE | 2024-06-15 14:10 | CON.INTV ---
Consultation
Consultation Request
Date/Time Consultation Requested: 06/15/2024
Date/Time Consultation Performed: 06/15/2024
Requesting Provider: Dr. Tatum
Performing Provider: Dr. Rasta Pérez
Reason for Consultation: Status post coronary artery bypass
Medical History
-
History of Present Illness:
58-year-old man with no significant past medical history came to the hospital complaining of chest pain. Chest pain woke him up from the middle of the night on 06/11/2024. Patient also reported exertional symptoms with treadmill. Patient had EKG
changes.
There is reports of daily drinking of 5-6 beers per day.
Initially treated for acute coronary syndrome. Underwent left heart catheterization 06/11/2024, demonstrated multivessel coronary artery disease. CT surgery was consulted. He was deemed candidate for revascularization.
Coronary artery bypass underwent on 06/15/2024 without complication
Currently in the critical care unit, intubated. Unable to provide history. Records reviewed.
Chest tube in place without significant air leak or excessive drainage.
Past Medical History
Past Medical History: None and Other (None)
Social History
Tobacco: Smoker (36-bxiy-mdbh history, quit about 15 years ago)
Alcohol: Daily (5 beers per day)
Living: With Family
Family History
Family History: Adopted
Allergies / Home Medications
Allergies
Allergy/AdvReac Type Severity Reaction Status Date / Time
No Known Allergies Allergy Unverified 06/11/24 06:32
Home Medications
�Medication �Instructions �Recorded �Confirmed �Last Taken �Type
No Meds [No Current Medications] 06/11/24 06/11/24 Unknown History
Review of Systems
-
History Source: Patient
All other systems: Negative unless noted
Vitals / Labs / Diagnostic Testing
Vital Signs
Temp Pulse Resp BP Pulse Ox
98.3 F 61 12 136/71 100
06/15/24 14:00 06/15/24 14:00 06/15/24 14:00 06/15/24 06:12 06/15/24 14:00
Lab Data
06/15/24 12:20
Laboratory Results
06/14/24 06/14/24 06/15/24
14:43 20:43 05:41
PT
INR
APTT 96.0 H 83.0 H 143.5 H
pH
pCO2
pO2
HCO3
O2 Delivery Level
06/15/24
12:20
PT 16.5 H
INR 1.27
APTT 30.7
pH 7.35
pCO2 43
pO2 89
HCO3 23.7
O2 Delivery Level
Diagnostic Testing:
Assessment
-
58-year-old man admitted with unstable angina, underwent left heart catheterization demonstrated multivessel coronary artery disease 06/11/2024. Deemed candidate for surgical revascularization. Coronary artery bypass underwent on 06/15/2024.
Patient transferred to the critical care unit for postoperative management.
Status postcoronary artery bypass 06/15/2024-Dr. Tatum
Postoperative mechanical ventilation
Postoperative anemia
Admitted initially 06/11/2024 for unstable angina
Multivessel coronary artery disease on cath this admission
Former smoker quit 15 years ago. 56-mcya-rwhr history.
Assessment and plan:
He is doing well postop-currently on mechanical ventilation and appears comfortable.
ABG reviewed: Adequate oxygenation and ventilation
Continue SIMV mode with no change, Currently following commands, on PSV trial.
Anemia noted-no evidence of acute bleeding
Follow H&H serially
Hemodynamics -acceptable
Chest tube with no excessive drainage-no air leak.
Chest x-ray reviewed: With no pneumothorax or fluid collections.
Remain nothing by mouth
Head of the bed elevation
Glycemic control per protocol
DVT prophylaxis when safe from the surgical perspective.
Critical care statement: A total of 32 minutes of critical care time was provided for this patient today. This includes management of unstable vital signs, evaluation of the patient at bedside, reviewing the patient's pertinent medical records
including ventilator settings, arterial blood gases, radiographs, microbiology, laboratory evaluations and discussion with primary team, critical care nursing, and respiratory therapy.
[2024-06-15 14:28] LABS: B.E. -1.5 mmol/L; HCO3 23.7 mmol/L (21-28); O2 Saturation % 99.5 % (94-98); PCO2 41 mmHg (35-48); PO2 154 mmHg (83-108); pH 7.37 (7.35-7.45)
--- NOTE | 2024-06-15 14:30 | W.PN.CARDCBS ---
Today's Communication / Plan
-
Continue postop care
Impression / Plan
-
.
PCP: None
Cardiology: None prior to admission
Impression:
Chest pain-presented with unstable angina, Abnormal EKG with ST depressions anterolaterally
NSTEMI, peak trop 12.6
Multivessel CAD
Status post CABG x 5 (In situ BERTRAND to LAD proper, Ao to RSVG to large diagonal, Ao to left radial to both branches of OM, ao to RSVG to RPDA) Jun 15 2024
HTN
Mixed hyperlipidemia
Recent EtOH use
Left heart cath June 13, 2024
HEMODYNAMICS : (mmHg)
AO (s/d) : 120/68
LV (s/d) : 124/8
LVEDP : 17
CORONARY FINDINGS
DOMINANCE: Right
LEFT MAIN: The left main artery is a large-caliber vessel which gives rise to the left anterior descending artery and the left circumflex artery. There is minimal luminal irregularities.
LEFT ANTERIOR DESCENDING: The left anterior descending artery is a small to medium caliber vessel which becomes diminutive in the mid to distal portion and does not end up supplying the apex. There is a large-caliber diagonal branch which has a 70
to 80% stenosis as it takes off from the LAD and ends up supplying the apex and providing [id number] collaterals.
CIRCUMFLEX: The left circumflex artery is a medium caliber vessel which gives rise to 1 major branching obtuse marginal branch., Mid left circumflex into OM branch has a area of significant ectasia with mid OM at the level of bifurcation of the
branches with a 80 to 85% hazy stenosis extending into the branches. The OM branches appear to be good bypass targets.
RIGHT CORONARY ARTERY: The right coronary artery is a large-caliber, dominant vessel which gives rise to the right posterior descending artery and a right posterolateral system. The RCA is a very ectatic vessel with mild to moderate diffuse
atherosclerotic plaque and a 60% focal stenosis in the distal portion. There is also a hazy 90% stenosis at the takeoff of the RPDA with what appears to be a possible dual PDA system with the proximal RPDA subtotally occluded and filling faintly
antegradely as well as with [id number] collaterals.
Echo Jun 13 2024: EF 55% with no significant valve disease.
Plan:
-Presented with chest pain. Initially started as exertional chest pain that would resolve with rest, however last night developed severe chest tightness while at rest prompting ER evaluation.
-3 to 4 weeks of unstable angina.
Cont post op care
Vent wean protocol
Weaning pressor
Cardizem held for now with hypotension.
Compensated cv status.
Echo Jun 13 2024 showed normal function with no significant valve disease.
Cont Toprol. Eventual ACEI.
Lipitor 80 mg daily added for hx CAD and LDL 165. Goal LDL at least < 70. Recheck lipids as outpt.
HPI: Tushar is a 58-year-old male with no significant past medical history. He presents to ER for evaluation of progressively worsening chest tightness. He reports that typically he exercises on the treadmill 3 miles every day, however
approximately 2 to 3 weeks ago he started noting exertional chest tightness during his exercises. He states approximately alf through his workout he was started to have chest tightness along the left side of his chest with radiation to his jaw.
He would stop exercising and within a few minutes his symptoms were resolved. Throughout the past couple of weeks, he notes that the chest tightness started happening with less and less exertion, and over the past few days he was only able to
exercise for a few minutes before he needed to stop due to his symptoms. Pain resolved shortly after resting, however but with any resumption of exercise would return. Last evening while sitting on the couch resting, he had more severe chest
tightness with radiation into his jaw that occurred while at rest. As he had not previously had rest symptoms, he decided to come into the ER for evaluation. In ER, initial ECG concerning with anterolateral ST depressions. He was given 3 doses of
sublingual nitroglycerin and pain resolved. Initial troponin negative. Given story concerning for angina with abnormal EKG, he has been admitted and started on IV heparin. Cardiology consulted for evaluation. He notes he does not follow
regularly with doctors and has had no recent lab work or doctors visits other than to business attorney. During dermatology visits, he notes his blood pressure has been elevated, however he is not on any antihypertensive medications. Currently he is
pain-free and is resting comfortably in stretcher.
Progress Note - Detasseler
Subjective
Date of Service: June 15, 2024
Patient seen and examined. Sedated on vent
Objective
Labs:
06/15/24 12:20
Labs
Hgb 12.4 g/dL (13.0-18.0) L 06/15/24 12:20
Hct 36.0 % (39.0-52.0) L 06/15/24 12:20
Plt Count 140 10^3/uL (130-400) 06/15/24 12:20
PT 16.5 Sec (11.4-14.6) H 06/15/24 12:20
INR 1.27 06/15/24 12:20
APTT 30.7 Sec (23.4-35.0) 06/15/24 12:20
Sodium 137 mmol/L (135-145) 06/14/24 02:02
Potassium 3.8 mmol/L (3.5-5.1) 06/14/24 02:02
BUN 15 mg/dl (9-20) 06/15/24 12:20
Creatinine 0.9 mg/dL (0.7-1.3) 06/15/24 12:20
Glucose 186 mg/dl (70-99) H 06/15/24 12:20
Vital Signs and I&O:
Vital Signs
Temp Pulse Resp BP Pulse Ox
98.3 F 61 12 136/71 100
06/15/24 14:00 06/15/24 14:00 06/15/24 14:00 06/15/24 06:12 06/15/24 14:00
Vital Signs
Temp Pulse Resp BP Pulse Ox
98.3 F 61 12 136/71 100
06/15/24 14:00 06/15/24 14:00 06/15/24 14:00 06/15/24 06:12 06/15/24 14:00
Intake & Output
06/13/24 06/14/24 06/15/24 06/16/24
06:59 06:59 06:59 06:59
Intake Total 452 / 452 815 / 815 400 / 400 336.6 / 336.6
Output Total 600 / 600 240 / 240
Balance 452 / 452 215 / 215 400 / 400 96.6 / 96.6
Physical Exam
Physical Exam
General: Sedated on vent
Neck: Negative JVD
Heart: Regular, Negative S3 positive S1/S2, Negative S4, No murmur
Lungs: CTA b/l, negative wheezes/rales/rhonchi
Abd: Positive BS, NT/ND, neg rebound/rigidity/guarding
Ext: Negative cyanosis/clubbing/edema
Neuro: nonfocal
[2024-06-15] MEDS: CARDIZEM 125 IV (14:31)
[2024-06-15 14:32] LABS: O2 Therapy 40%
[2024-06-15] MEDS: ROXICODONE 5 MG PO ×2 (14:51→18:56)
[2024-06-15 14:59] LABS: Glucose - Point of Care 105 mg/dl (70-99)
--- NOTE | 2024-06-15 15:03 | PTCARENOTE ---
Patient displayed evidence overbreathing ventilator. CPAP wean initiated. Patient tolerated well, no apnea noted, good TV. ABG obtained, results wnl, conveyed to JONAS Sylvester. Patient extubated to 6lnc w/out incident, SaO2 100%.
[2024-06-15] MEDS: PACERONE PO (15:55)
[2024-06-15 16:01] LABS: Glucose - Point of Care 117 mg/dl (70-99)
[2024-06-15] MEDS: FLEXERIL 5 MG PO (16:10)
[2024-06-15] MEDS: NEURONTIN 100 MG PO ×2 (16:10→22:02)
[2024-06-15 16:29] LABS: Hematocrit 35.4 % (39.0-52.0); Hemoglobin 12.4 g/dL (13.0-18.0); Platelet Count 169 10^3/uL (130-400)
[2024-06-15] MEDS: NORVASC 2.5 MG PO (16:57)
[2024-06-15 17:02] LABS: Glucose - Point of Care 113 mg/dl (70-99)
[2024-06-15] MEDS: ASPIR LOW (ENTERIC COATED) 81 MG PO (18:01)
[2024-06-15] MEDS: LIPITOR 80 MG PO (18:02)
[2024-06-15] MEDS: ANCEF 5 IV (18:56)
[2024-06-15 19:00] LABS: Glucose - Point of Care 91 mg/dl (70-99)
--- NOTE | 2024-06-15 19:30 | PTCARENOTE ---
Assumed care of the patient at 1900. Patient in bed, at bedside, AOx3, states he feels drowsy. SR on the monitor with T wave inversion, rates 70-80's, pulses palpable, no edema, rub heard on auscultation. Lungs diminished throughout, on 2LNC,
CTx3 to -20 cm wall suction, no air leak, tidaling, or crepitus noted, sats 96-99%, IS compliance observed. Hypoactive BS, SNT abdomen, no n/v. Olivarez catheter in place draining clear yellow urine. All surgical sites CDI. Levophed at 2, insulin gtt
per protocol, RIJ cordis with slic infusing KVO. R art line present, PIVx1 in R hand. All lines leveled and zeroed. PRN medication given for c/o pain. Call iyre within reach, patient updated on POC, in agreement, assessment of needs ongoing. See
work list for nursing interventions.
[2024-06-15 20:06] VITALS: BP 102/75
[2024-06-15] MEDS: SENOKOT-S 1 TABLET PO (20:06)
[2024-06-15 21:01] VITALS: BP 94/70
[2024-06-15 21:06] LABS: Glucose - Point of Care 112 mg/dl (70-99)
[2024-06-15] MEDS: SODIUM BICARBONATE 50 MEQ IV (21:07)
[2024-06-15] MEDS: PACERONE 200 MG PO (22:01)
[2024-06-15] MEDS: TYLENOL 1000 MG PO (22:02)
[2024-06-15 23:04] LABS: Glucose - Point of Care 80 mg/dl (70-99)
[2024-06-16] VITALS (30 sets, daily range): BP systolic 77–116; BP diastolic 49–80; PULSE 104; O2SAT 95–97; BMI 25.1; BMI 25.6
--- NOTE | 2024-06-16 | PTCARENOTE ---
Gave oxycodone PRN ~1900 for incisional pain. Follow up pain level 08/22. Levo gtt held at 1999, patient BP goal met. 1 amp bicarb given at 2109 for BP support. Patient with low grade temp, 100.3-100.7 - CVPA aware, scheduled Tylenol administered as
ordered, PRN if temp persists. Patient resting in bed between care, no acute complaints.
[2024-06-16] MEDS: FLEXERIL 5 MG PO ×4 (00:05→23:42)
[2024-06-16 01:06] LABS: Glucose - Point of Care 80 mg/dl (70-99)
[2024-06-16] MEDS: ROXICODONE 5 MG PO ×3 (01:11→19:40)
[2024-06-16 03:09] LABS: Glucose - Point of Care 90 mg/dl (70-99)
[2024-06-16] MEDS: ANCEF 5 IV ×2 (03:30→11:12)
--- NOTE | 2024-06-16 04:05 | W.PN.CT ---
Today's Communication / Plan
-
Plan:
-No major issues overnight. Hemodynamically and neurologically intact
-Pt successfully extubated yesterday 06/15/23 @ 1440
-Weaned off Levophed overnight, remains on insulin gtt per protocol
-BP soft postop, but a bit on the tachycardic side. Will hold BB this AM, will increase Amiodarone to 400 mg PO TID. On 2.5 mg Norvasc for radial graft
-No swan, U/O since OR 905 mL
-Monitor chest tube output: 2meds 155/240, L pleural
-AM cxr is pending
-Cont. current meds (ASA, Plavix, Lipitor, Norvasc for radial artery patency, Amiodarone, Lopressor- will likely hold AM dose since BP soft)
-D/C'd SLIC and a-line @ 0600
-D/C irwin catheter @ 0600
-Transfer to tele phase today when off insulin gtt per protocol
-Maintain cordis
-Maintain temporary PW (will d/c before discharge home)
-Wean off of O2 as tolerated
-Encourage use of IS
-OOB into chair/Ambulate
Assessment / Plan
-
Assessment:
-S/p Sternotomy/CABG x 5 (In situ BERTRAND to LAD proper, Ao to RSVG to large diagonal, Ao to left radial to both branches of OM, ao to RSVG to RPDA)/ Endoscopic vein harvesting of right lower extremity/ Endoscopic left radial artery harvest/Left atrial
appendage exclusion [40 mm]/Parasternal block by anesthesia, by Dr. Tatum, 06/15/24, pod#1
-Severe 3v CAD
-NSTEMI (peak trop 12.6)
-USA
-Mild TR
-LVEF 55-60% per intraop FISH
-HLD
-Former tobacco use (quit 15 years ago)
-Daily ETOH use (5-6 beers/daily)
-Acute postop blood loss/Anemia (stable without blood transfusion)
-Acute postop atelectasis
-Acute postop low grade fever, likely d/t atelectasis
-Acute postop hypovolemia with subsequent hypervolemia
Discussed patient care with: Cardiology, Nursing, Respiratory Therapy, Pharmacy and Care Team
Subjective
Procedure
S/p Sternotomy/CABG x 5 (In situ BERTRAND to LAD proper, Ao to RSVG to large diagonal, Ao to left radial to both branches of OM, ao to RSVG to RPDA)/ Endoscopic vein harvesting of right lower extremity/ Endoscopic left radial artery harvest/Left atrial
appendage exclusion [40 mm]/Parasternal block by anesthesia, by Dr. Tatum, 06/15/24
-
Date of Service: June 16, 2024
Pt c/o incisional pain, otherwise feels well. Needs encouragement with IS (barely 500 mL until this AM)
Objective Data
-
PT 16.5 Sec (11.4-14.6) H 06/15/24 12:20
INR 1.27 06/15/24 12:20
APTT 30.7 Sec (23.4-35.0) 06/15/24 12:20
Vital Signs
Vital Signs
Temp Pulse Resp BP Pulse Ox
100.4 F H 88 20 119/61 97
06/16/24 03:00 06/16/24 02:06 06/16/24 02:06 06/15/24 22:01 06/16/24 02:06
CT Intake/Output/Weight
06/15/24 06/15/24 06/16/24
06:59 18:59 06:59
Intake Total 400 / 400 732.3 / 1020.4 288.1 / 1020.4
Output Total 520 / 1065 545 / 1065
Balance 400 / 400 212.3 / -44.6 -256.9 / -44.6
SaO2: 97 (2L)
Physical Exam
-
General: Awake, Oriented and AOx3
Cardiovascular: Regular rate & rhythm, No Murmurs, No Rub and No Gallop
Respiratory: Decreased Breath Sounds (at bases, otherwise clear)
Sternum: Stable
Incision: Clean, Dry, Intact and Dressing Intact
Extremities: No Edema
Data Reviewed
-
Lab Results: Results Reviewed
Medications: Active Meds Reviewed
Chest X-Ray: Report Reviewed and Image Reviewed
ECG: Report Reviewed and Image Reviewed
--- NOTE | 2024-06-16 04:09 | PTCARENOTE ---
Additional PRN oxycodone ~0100 for 7/10 sternal pain. Patient had 11-beat run of SVT ? at 0217 - CVPA aware, no intervention, O2 sats sufficient.
Persistently febrile - IS encouraged - hold off on IV acetaminophen and given PO as scheduled per CVPA. Patient sleeping comfortably in bed, VS otherwise stable.
[2024-06-16] MEDS: DILAUDID 0.25 MG IV (04:20)
[2024-06-16 04:52] LABS: Glucose - Point of Care 77 mg/dl (70-99)
[2024-06-16] MEDS: TYLENOL 1000 MG PO ×3 (05:32→19:56)
[2024-06-16 05:43] LABS: Hematocrit 33.2 % (39.0-52.0); Hemoglobin 11.4 g/dL (13.0-18.0); Mean Corp Hgb Conc. 34.3 g/dL (33.0-37.0); Mean Corpuscular Volume 96.2 fL (80.0-94.0); Mean Platelet Volume 10.1 fL (7.4-10.4); Platelet Count 145 10^3/uL (130-400); Red Blood Cell Count 3.45 10^6/uL (4.70-6.10); Red Cell Dist. Width 12.2 % (11.5-14.5); White Blood Cell Count 9.1 10^3/uL (4.8-10.8)
[2024-06-16 05:47] LABS: Blood Urea Nitrogen 15 mg/dl (9-20); Calcium 8.5 mg/dl (8.4-10.2); Carbon Dioxide 25 mmol/L (22-30); Chloride 103 mmol/L (98-107); Estimated Creatinine Clearance 116 ml/min; Glucose 79 mg/dl (70-99); Magnesium 2.1 mg/dl (1.6-2.3); Potassium 4.2 mmol/L (3.5-5.1); Sodium 136 mmol/L (135-145); eGFR > 60.00
[2024-06-16 06:02] LABS: Glucose - Point of Care 86 mg/dl (70-99)
--- NOTE | 2024-06-16 06:41 | PTCARENOTE ---
Patient delined, no acute issues, attempted to get OOB with assistance, hypotensive no symptoms, placed safely back into bed. Calcium gluconate pending.
[2024-06-16 07:19] LABS: Glucose - Point of Care 86 mg/dl (70-99)
[2024-06-16] MEDS: CALCIUM GLUCONATE 100 IV (07:21)
[2024-06-16] MEDS: LR 250 ML IV ×2 (07:33→09:13)
--- NOTE | 2024-06-16 07:57 | W.PN.ANS.POP ---
Anesthesia Post Operative
- Anesthesia Post Op Note
Vital Signs Stable-See Nursing Note: Yes
Airway Patent: Yes
Adequate Pain Control: Yes
Change in Mental Status: No
Current Postoperative Nausea & Vomiting: No
Anesthesia Complications: No
General Anesthetic Recall: No
Unplanned Admission: No
Post Op Hydration Adequate: Yes
[2024-06-16 08:09] LABS: Glucose - Point of Care 89 mg/dl (70-99)
[2024-06-16] MEDS: LIDOCAINE 4% PATCH 1 PATCH TOPICAL (08:19)
[2024-06-16] MEDS: PACERONE 400 MG PO ×3 (08:19→21:12)
[2024-06-16] MEDS: PROTONIX 40 MG PO (08:19)
[2024-06-16] MEDS: NEURONTIN 100 MG PO ×3 (08:19→21:12)
[2024-06-16] MEDS: LOW STRENGTH ASPIRIN 81 MG PO (08:19)
[2024-06-16] MEDS: PLAVIX 75 MG PO (08:19)
[2024-06-16] MEDS: MAGNESIUM OXIDE 500 MG PO ×2 (08:19→19:39)
[2024-06-16] MEDS: SENOKOT-S 1 TABLET PO ×2 (08:19→19:40)
[2024-06-16] MEDS: NORVASC 2.5 MG PO (08:20)
[2024-06-16] MEDS: BACTROBAN 2% OINTMENT 1 APPLIC NASAL ×2 (08:24→19:39)
--- NOTE | 2024-06-16 08:30 | PTCARENOTE ---
Patient received from noxious weeds and pest inspector RN; AAOx3, responds spontaneously to RN and follows commands; VSS; SR with ST and PVC's on monitor; Epicardial V-wire present with temporary pacemaker settings VVI 30/10/2.0; Friction rub present; +2 DP and right
radial pulses, +1 left ulnar pulse; Lungs diminished throughout; SpO2 96-100% on 2L NC; IS 500 ml; CTx3 draining serosanguineous drainage - no tidaling, crepitus, or air leak noted; Hypoactive BS; Olivarez catheter removed during prior shift - DTV;
Surgical sites intact; PIVx1 with insulin infusing, RIJ Cordis with KVO infusing - see nursing flowsheets for further details; LR Bolus given x1; IV Calcium gluconate 2 gm ordered and given; PO Metoprolol held this AM as per CVNP America C.: PO
Amiodarone dose increased; See nursing documentation for further details.
[2024-06-16 09:08] LABS: Glucose - Point of Care 94 mg/dl (70-99)
[2024-06-16 11:05] LABS: Glucose - Point of Care 116 mg/dl (70-99)
[2024-06-16] MEDS: NSS IV (11:21)
[2024-06-16] MEDS: ProAmatine 5 MG PO (11:53)
--- NOTE | 2024-06-16 12:22 | W.PN.CARDCBS ---
Addendum entered and electronically signed by Antoni Morgan MD 06/16/24 12:49:
I saw and examined the patient.
The ACTUARIAL SCIENCE PROFESSOR or PA's note was reviewed and I agree with the note.
Comment: General: Well developed, well nourished in NAD.
Neck: Supple, no JVD, HJR, carotids +2 B/L, no bruits bilaterally.
Heart: Non displaced PMI, RRR, no murmurs, No S3, S4, no rubs.
Lungs: Scattered rhonchi
Sternal dressings noted
Extremities: No clubbing, cyanosis or edema bilaterally.
Neuro: Grossly nonfocal, awake, alert and oriented x3.
Stable cardiology status. Remains in sinus rhythm. Toprol-XL to be started tonight.
Original Note:
Today's Communication / Plan
-
Scheduled to start Toprol XL tonight
Impression / Plan
-
PCP: None
Cardiology: None prior to admission
Impression:
Admitted with chest pain 06/11/24
NSTEMI, peak Troponin 12.6
CAD s/p CABG 06/15/24
BERTRAND to LAD proper, Ao to RSVG to large diagonal, Ao to left radial to both branches of OM, Ao to RSVG to RPDA 06/15/24
s/p GREG exclusion 06/15/24
HTN
Mixed hyperlipidemia
Recent EtOH use
Echo 06/13/24: EF 55% with no significant valve disease.
Plan:
-Patient with chest pain on admission and initial Troponin undetectable and then peaked at 12.8 06/11/24. Patient then found to have multivessel CAD by cath 06/13/24. Patient had CABG 06/15/24.
-CT surgery note reviewed 06/16/24, patient extubated 06/15/24 afternoon. Levophed weaned.
-BP 98/76 currently after AM dose of amlodipine 2.5 mg daily.
-Toprol XL .5 mg BID scheduled to start 06/16/24 PM
-New to aspirin and Plavix this admission
-LDL 165 this admission. Patient was not taking a statin prior to admission. New to atorvastatin 80 mg daily.
-ECG 06/16/24 reviewed by me is SR lateral T wave inversion
-Talked with patient and about eventual cardiology f/u as an outpatient. Patient will also need to establish a PCP.
HPI: Tushar is a 58-year-old male with no significant past medical history. He presents to ER for evaluation of progressively worsening chest tightness. He reports that typically he exercises on the treadmill 3 miles every day, however
approximately 2 to 3 weeks ago he started noting exertional chest tightness during his exercises. He states approximately nursing home through his workout he was started to have chest tightness along the left side of his chest with radiation to his jaw.
He would stop exercising and within a few minutes his symptoms were resolved. Throughout the past couple of weeks, he notes that the chest tightness started happening with less and less exertion, and over the past few days he was only able to
exercise for a few minutes before he needed to stop due to his symptoms. Pain resolved shortly after resting, however but with any resumption of exercise would return. Last evening while sitting on the couch resting, he had more severe chest
tightness with radiation into his jaw that occurred while at rest. As he had not previously had rest symptoms, he decided to come into the ER for evaluation. In ER, initial ECG concerning with anterolateral ST depressions. He was given 3 doses of
sublingual nitroglycerin and pain resolved. Initial troponin negative. Given story concerning for angina with abnormal EKG, he has been admitted and started on IV heparin. Cardiology consulted for evaluation. He notes he does not follow
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 During dermatology visits, he notes his blood pressure has been elevated, however he is not on any antihypertensive medications. Currently he is
pain-free and is resting comfortably in stretcher.
Progress Note - International Account Representative
Subjective
Date of Service: June 16, 2024
Feels well, no chest pain
Objective
Labs:
06/16/24 04:51
06/16/24 04:51
Labs
Hgb 11.4 g/dL (13.0-18.0) L 06/16/24 04:51
Hct 33.2 % (39.0-52.0) L 06/16/24 04:51
Plt Count 145 10^3/uL (130-400) 06/16/24 04:51
PT 16.5 Sec (11.4-14.6) H 06/15/24 12:20
INR 1.27 06/15/24 12:20
APTT 30.7 Sec (23.4-35.0) 06/15/24 12:20
Sodium 136 mmol/L (135-145) 06/16/24 04:51
Potassium 4.2 mmol/L (3.5-5.1) 06/16/24 04:51
BUN 15 mg/dl (9-20) 06/16/24 04:51
Creatinine 0.7 mg/dL (0.7-1.3) 06/16/24 04:51
Glucose 79 mg/dl (70-99) 06/16/24 04:51
Vital Signs and I&O:
Vital Signs
Temp Pulse Resp BP Pulse Ox
99.7 F 95 20 97/69 100
06/16/24 12:00 06/16/24 12:00 06/16/24 12:00 06/16/24 12:00 06/16/24 12:00
Vital Signs
Temp Pulse Resp BP Pulse Ox
99.7 F 95 20 97/69 100
06/16/24 12:00 06/16/24 12:00 06/16/24 12:00 06/16/24 12:00 06/16/24 12:00
Intake & Output
06/14/24 06/15/24 06/16/24 06/17/24
06:59 06:59 06:59 06:59
Intake Total 815 / 815 400 / 400 1086.7 / 1127.0 1197.9 / 1197.9
Output Total 600 / 600 1210 / 1240 115 / 115
Balance 215 / 215 400 / 400 -123.3 / -113.0 1082.9 / 1082.9
Physical Exam
Physical Exam
GEN: AAOx3
HEENT: MMM
LUNGS: No audible wheeze
CV: SR on tele
ABD: ND
EXT: No edema
NEURO: Gross non-focal
SKIN: No rash
--- NOTE | 2024-06-16 12:37 | PTCARENOTE ---
Patient weaned off oxygen to room air - SpO2 91-96%; Ambulated to chair with assist x1 and able to obtain standing scale weight; Patient complains of dizziness and lightheadedness when standing up - BP down to 77/49 when standing; CVNP America Mcdowell
notified and aware about orthostatic vitals - PO Midodrine 5 mg ordered and given; LR bolus given x1; V-wire insulated; Insulin drip discontinued - see nursing flowsheets for further details; Patient complaining of 6/10 sharp pain in sternum - PRN
Oxycodone 5 mg given accordingly and patient now resting comfortably in chair
[2024-06-16] MEDS: FERRLECIT 110 MG IV (13:52)
--- NOTE | 2024-06-16 14:36 | W.PN.INTV ---
Today's Communication / Plan
Recommendations
Continue postoperative care
Monitor chest tube output
Daily chest x-ray
Follow hemoglobin
Analgesia
Increase activity as able
Telemetry phase
Critical care team will sign off
Assessment
-
58-year-old man admitted with unstable angina, underwent left heart catheterization demonstrated multivessel coronary artery disease 06/11/2024. Deemed candidate for surgical revascularization. Coronary artery bypass underwent on 06/15/2024.
Patient transferred to the critical care unit for postoperative management.
Status postcoronary artery bypass 06/15/2024-Dr. Tatum
Postoperative mechanical ventilation
Postoperative anemia
Admitted initially 06/11/2024 for unstable angina
Multivessel coronary artery disease on cath this admission
Former smoker quit 15 years ago. [id number] history.
Assessment and plan:
Doing excellent postoperative day 1
Extubated 06/15/2024
Encourage incentive spirometry
Increase activity as able
Continue analgesia-monitor respiratory status closely
Wean off oxygen
Anemia noted-no evidence of acute bleeding
Follow H&H serially
Hemodynamics -off vasopressors.
Normal renal function
Adequate urinary output
Chest tube with no excessive drainage-no air leak.
Chest x-ray reviewed: With no pneumothorax or fluid collections.
Low-grade fevers noted.
Continue to monitor off antibiotic
Advance diet as tolerated
Head of the bed elevation
Glycemic control per protocol
DVT prophylaxis when safe from the surgical perspective.
Patient has been transferred to telemetry.
Critical care team will sign off
Subjective Dataa
Subjective Data
Date of Service:
Date of Service: June 16, 2024
Chief Complaint: Shoe Dyer Follow Up (Status post coronary artery)
Subjective:
No major overnight events
No significant complaints this morning
pain is controlled
Review of Systems
General: Fever (n)
Cardiopulmonary: Dyspnea (none at rest)
GI: Abdominal Pain (n) and Nausea (n)
Neuro: Headache (n)
Objective Data
Data Reviewed
Vital Signs / I&O / Oxygen:
Vital Signs
Temp Pulse Resp BP Pulse Ox
100.8 F H 104 18 101/66 93
06/16/24 13:47 06/16/24 13:30 06/16/24 13:00 06/16/24 13:00 06/16/24 13:30
Intake and Output
06/15/24 06/16/24 06/17/24
06:59 06:59 06:59
Intake Total 400 / 400 1086.7 / 1127.0 1567.9 / 1567.9
Output Total 1210 / 1240 125 / 125
Balance 400 / 400 -123.3 / -113.0 1442.9 / 1442.9
SaO2 [CPAP] 99
SaO2 [SIMV] 97
SaO2 93
Nasal Cannula flow liters per 1
minute
Physical Exam
General: Comfortable
HEENT: Normocephalic
Cardiovascular: S1-S2
Respiratory: Clear and Chest Tube (No excessive drainage or leakage)
GI: Soft and Non Distended
Neurology: Awake, Alert, Oriented and No Motor Deficits
Skin: Good Color
Labs/Micro/Reports
Lab Data
06/16/24 04:51
06/16/24 04:51
--- NOTE | 2024-06-16 15:58 | CM ---
CM following for DC planning needs.
Pt. is POD#[address] Surgery.
Reviewed initial assessment. Pt. resides in a [address] home w/ spouse. Functionally, patient is indep. w/ ADLs, mobility without the use of any assisted device.
Antic. DC plan is for home w/ CT Transitional Care RN.
CM to follow.
[2024-06-16] MEDS: TOPROL XL 12.5 MG PO (16:27)
--- NOTE | 2024-06-16 16:31 | PTCARENOTE ---
Patient ambulated in hallways with RN; Patient denying any dizziness or lightheadedness during ambulation and VSS throughout; Bladder scanned for 373 ml; Patient unable to urinate in bathroom - CVNP America Hoskins. states to give patient more time to
urinate; Temperature 101.9 - patient denies chills but is diaphoretic; CVNP America C. notified and aware regarding temperature - ice packs and wet washcloth placed on patient's forehead.
[2024-06-16] MEDS: ProAmatine 2.5 MG PO (17:14)
[2024-06-16] MEDS: LIPITOR 80 MG PO (17:14)
[2024-06-16] MEDS: FLOMAX 0.4 MG PO (18:48)
--- NOTE | 2024-06-16 18:50 | PTCARENOTE ---
Patient unable to urinate during shift - bladder scanned multiple times and given more time to urinate on his own without success; Straight cathed by RN for 440 ml of annemarie, clear urine; Patient screaming of intense burning pain during
catheterization - CVNP America Mcdowell notified and aware; Patient offered lidocaine jelly to help with discomfort but patient refusing; PO Flomax ordered and given.
--- NOTE | 2024-06-16 20:00 | PTCARENOTE ---
Received pt from [facility]. pt is POD #1 from CABGx5 and GREG Clip. pt is resting on bed with at bedside. pt is AAOx4, states pain is 4/10, see MAR. NSR with prolonged QT on monitor. VSS. heart sounds audible, Rub present, right radial and left
ulnar pulse palpable, DP pulses palpable, no edema noted, temp epicardial v-wires insulated, pt is running a fever of 101.3, CVNP notified and Tylenol given. lung sounds diminished at b/l bases, spo2 92% on RA, x2 MS and left pleural CT to -20 wall
suction, no air leaks, no tidaling, no crepitus. +BS x4 quadrants abdomen soft non tender, passing gas, no BM since surgery. pt is due to void, pt straight cathed by day shift at 1830, will continue to monitor. surgical sites maintained, right IJ
cordis and PIV maintained. call iyer within reach. will continue to monitor.
--- NOTE | 2024-06-16 23:55 | PTCARENOTE ---
pt resting comfortably in bed. NSR on monitor, VSS. pt's temp is down to 99.1. pt states that he does not feel the urge to void. pt is bladder scanned for 171mls of urine. will continue to monitor.
[2024-06-17] VITALS (34 sets, daily range): BP systolic 79–114; BP diastolic 47–76; PULSE 96; O2SAT 91–98; BMI 25.9
--- NOTE | 2024-06-17 02:07 | W.PN.CT ---
Today's Communication / Plan
-
-No overnight events
-Tmax 101.9*F, WBC 9.9, Hr 85. IS use reinforced.
-s/p IVF bolus and midodrine initiation 1/, SBP ~ 100 mmHg
-CTs: 2meds 20/155, L pleural 20/130
-Cont. current meds (ASA, Plavix, Lipitor, Norvasc for radial artery patency, Amiodarone, Lopressor- will likely hold AM dose since BP soft)
-Maintain cordis
-Maintain temporary PW (will d/c before discharge home)
-Wean off of O2 as tolerated
-OOB into chair/Ambulate
Assessment / Plan
-
Assessment:
-S/p Sternotomy/CABG x 5 (In situ BERTRAND to LAD proper, Ao to RSVG to large diagonal, Ao to left radial to both branches of OM, ao to RSVG to RPDA)/ Endoscopic vein harvesting of right lower extremity/ Endoscopic left radial artery harvest/Left atrial
appendage exclusion [40 mm]/Parasternal block by anesthesia, by Dr. Tatum, 06/15/24, pod#2
-Severe 3v CAD
-NSTEMI (peak trop 12.6)
-USA
-Mild TR
-LVEF 55-60% per intraop FISH
-HLD
-Former tobacco use (quit 15 years ago)
-Daily ETOH use (5-6 beers/daily)
-Acute postop blood loss/Anemia (stable without blood transfusion)
-Acute postop atelectasis
-Acute postop low grade fever, likely d/t atelectasis
-Acute postop hypovolemia with subsequent hypervolemia
Subjective
Procedure
S/p Sternotomy/CABG x 5 (In situ BERTRAND to LAD proper, Ao to RSVG to large diagonal, Ao to left radial to both branches of OM, ao to RSVG to RPDA)/ Endoscopic vein harvesting of right lower extremity/ Endoscopic left radial artery harvest/Left atrial
appendage exclusion [40 mm]/Parasternal block by anesthesia, by Dr. Tatum, 06/15/24
-
Date of Service: June 17, 2024
Objective Data
-
PT 16.5 Sec (11.4-14.6) H 06/15/24 12:20
INR 1.27 06/15/24 12:20
APTT 30.7 Sec (23.4-35.0) 06/15/24 12:20
Vital Signs
Vital Signs
Temp Pulse Resp BP Pulse Ox
99.2 F 84 16 93/65 94
06/17/24 02:00 06/17/24 01:30 06/16/24 23:43 06/17/24 01:00 06/17/24 01:30
CT Intake/Output/Weight
06/16/24 06/16/24 06/17/24
06:59 18:59 06:59
Intake Total 354.4 / 1127.0 2167.9 / 2167.9
Output Total 690 / 1240 685 / 725 40 / 725
Balance -335.6 / -113.0 1482.9 / 1442.9 -40 / 1442.9
SaO2: 94
Physical Exam
-
General: Awake, Oriented and AOx3
Cardiovascular: Regular rate & rhythm and No Murmurs
Respiratory: Clear, Equal and Decreased Breath Sounds
Sternum: Stable
Incision: Clean, Dry and Intact
Extremities: No Edema and No Erythema
Data Reviewed
-
Lab Results: Results Reviewed
Medications: Active Meds Reviewed
Chest X-Ray: Report Reviewed
CT Scan: Report Reviewed
ECG: Report Reviewed
[2024-06-17 02:25] LABS: Hematocrit 30.7 % (39.0-52.0); Hemoglobin 10.5 g/dL (13.0-18.0); Mean Corp Hgb Conc. 34.2 g/dL (33.0-37.0); Mean Corpuscular Volume 96.5 fL (80.0-94.0); Mean Platelet Volume 10.5 fL (7.4-10.4); Platelet Count 140 10^3/uL (130-400); Red Blood Cell Count 3.18 10^6/uL (4.70-6.10); Red Cell Dist. Width 12.2 % (11.5-14.5); White Blood Cell Count 9.9 10^3/uL (4.8-10.8)
[2024-06-17 02:33] LABS: Blood Urea Nitrogen 18 mg/dl (9-20); Calcium 8.4 mg/dl (8.4-10.2); Carbon Dioxide 31 mmol/L (22-30); Chloride 98 mmol/L (98-107); Estimated Creatinine Clearance 102 ml/min; Glucose 135 mg/dl (70-99); Magnesium 2.1 mg/dl (1.6-2.3); Potassium 4.5 mmol/L (3.5-5.1); Sodium 132 mmol/L (135-145); eGFR > 60.00
--- NOTE | 2024-06-17 04:00 | PTCARENOTE ---
Pt assessment unchanged. NSR on monitor. VSS. pt sill due to void. bladder scans remain under 400mls. labs drawn and sent. will continue to monitor.
[2024-06-17] MEDS: TYLENOL 1000 MG PO ×3 (05:47→19:52)
--- NOTE | 2024-06-17 07:33 | W.PN.UPDATE ---
Update Note
Progress Note Update
No pacing requirement since surgery. Site cleansed, suture and 1 bipolar epicardial ventricular pacing wire removed without difficulty. Bedrest x 1 hour. VS q15min x 4
--- NOTE | 2024-06-17 08:30 | PTCARENOTE ---
Patient received from night time babysitter RN; AAOx3, responds spontaneously to RN and follows commands; VSS; NSR on monitor; Epicardial V-wire insulated; Friction rub present; +2 DP and right radial pulses, +1 left ulnar pulse; Lungs diminished throughout;
SpO2 96-100% on 2L NC; Shallow respirations; IS 500 ml; CTx3 draining serosanguineous drainage - no tidaling, crepitus, or air leak noted; Hypoactive BS; Patient complains of painful urination; Surgical sites intact; PIVx1; RIJ Cordis; Epicardial
V-wire removed by CVSAMRA Bunch; Chest tubes removed by RN - see nursing flowsheets for further details; See nursing documentation for further details.
[2024-06-17] MEDS: PROTONIX 40 MG PO (08:31)
[2024-06-17] MEDS: SENOKOT-S 1 TABLET PO ×2 (08:31→19:52)
[2024-06-17] MEDS: PLAVIX 75 MG PO (08:31)
[2024-06-17] MEDS: PACERONE 400 MG PO ×3 (08:31→19:51)
[2024-06-17] MEDS: BACTROBAN 2% OINTMENT 1 APPLIC NASAL ×2 (08:31→19:51)
[2024-06-17] MEDS: FLOMAX 0.4 MG PO (08:32)
[2024-06-17] MEDS: ProAmatine 2.5 MG PO ×2 (08:32→13:19)
[2024-06-17] MEDS: TOPROL XL 12.5 MG PO (08:32)
[2024-06-17] MEDS: FLEXERIL 5 MG PO ×2 (08:32→15:57)
[2024-06-17] MEDS: NORVASC 2.5 MG PO (08:32)
[2024-06-17] MEDS: LOW STRENGTH ASPIRIN 81 MG PO (08:32)
[2024-06-17] MEDS: MAGNESIUM OXIDE 500 MG PO ×2 (08:32→19:51)
[2024-06-17] MEDS: NEURONTIN 100 MG PO ×2 (08:33→15:57)
[2024-06-17] MEDS: LIDOCAINE 4% PATCH 1 PATCH TOPICAL (08:46)
--- NOTE | 2024-06-17 11:10 | W.PN.CARDCBS ---
Today's Communication / Plan
-
Stable cardiology status status post cabg
Impression / Plan
-
PCP: None
Cardiology: None prior to admission
Impression:
Admitted with chest pain 06/11/24
NSTEMI, peak Troponin 12.6
CAD s/p CABG 06/15/24
BERTRAND to LAD proper, Ao to RSVG to large diagonal, Ao to left radial to both branches of OM, Ao to RSVG to RPDA 06/15/24
s/p GREG exclusion 06/15/24
HTN
Mixed hyperlipidemia
Recent EtOH use
Echo 06/13/24: EF 55% with no significant valve disease.
Plan:
Continues to do very well status post CABG
Remains in sinus rhythm
Chest tubes are out
HPI: Tushar is a 58-year-old male with no significant past medical history. He presents to ER for evaluation of progressively worsening chest tightness. He reports that typically he exercises on the treadmill 3 miles every day, however
approximately 2 to 3 weeks ago he started noting exertional chest tightness during his exercises. He states approximately [facility] through his workout he was started to have chest tightness along the left side of his chest with radiation to his jaw.
He would stop exercising and within a few minutes his symptoms were resolved. Throughout the past couple of weeks, he notes that the chest tightness started happening with less and less exertion, and over the past few days he was only able to
exercise for a few minutes before he needed to stop due to his symptoms. Pain resolved shortly after resting, however but with any resumption of exercise would return. Last evening while sitting on the couch resting, he had more severe chest
tightness with radiation into his jaw that occurred while at rest. As he had not previously had rest symptoms, he decided to come into the ER for evaluation. In ER, initial ECG concerning with anterolateral ST depressions. He was given 3 doses of
sublingual nitroglycerin and pain resolved. Initial troponin negative. Given story concerning for angina with abnormal EKG, he has been admitted and started on IV heparin. Cardiology consulted for evaluation. He notes he does not follow
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 During dermatology visits, he notes his blood pressure has been elevated, however he is not on any antihypertensive medications. Currently he is
pain-free and is resting comfortably in stretcher.
Progress Note - Manager Erp
Subjective
Date of Service: June 17, 2024
No complaints.
Objective
Labs:
06/17/24 02:01
06/17/24 02:01
Labs
Hgb 10.5 g/dL (13.0-18.0) L 06/17/24 02:01
Hct 30.7 % (39.0-52.0) L 06/17/24 02:01
Plt Count 140 10^3/uL (130-400) 06/17/24 02:01
PT 16.5 Sec (11.4-14.6) H 06/15/24 12:20
INR 1.27 06/15/24 12:20
APTT 30.7 Sec (23.4-35.0) 06/15/24 12:20
Sodium 132 mmol/L (135-145) L 06/17/24 02:01
Potassium 4.5 mmol/L (3.5-5.1) 06/17/24 02:01
BUN 18 mg/dl (9-20) 06/17/24 02:01
Creatinine 0.8 mg/dL (0.7-1.3) 06/17/24 02:01
Glucose 135 mg/dl (70-99) H 06/17/24 02:01
Vital Signs and I&O:
Vital Signs
Temp Pulse Resp BP Pulse Ox
99.0 F 79 20 93/61 92
06/17/24 07:58 06/17/24 09:45 06/17/24 08:00 06/17/24 09:00 06/17/24 09:51
Vital Signs
Temp Pulse Resp BP Pulse Ox
99.0 F 79 20 93/61 92
06/17/24 07:58 06/17/24 09:45 06/17/24 08:00 06/17/24 09:00 06/17/24 09:51
Intake & Output
06/15/24 06/16/24 06/17/24 06/18/24
06:59 06:59 06:59 06:59
Intake Total 400 / 400 1086.7 / 1127.0 2167.9 / 2167.9
Output Total 1210 / 1240 920 / 920 10 10
Balance 400 / 400 -123.3 / -113.0 1247.9 / 1247.9 -10 / -10
Physical Exam
Physical Exam
General: Well developed, well nourished in NAD.
Neck: Supple, no JVD, HJR, carotids +2 B/L, no bruits bilaterally.
Heart: Non displaced PMI, RRR, no murmurs, No S3, S4, no rubs.
Lungs: Scattered rhonchi
Sternotomy well-healed
Extremities: No clubbing, cyanosis or edema bilaterally.
Neuro: Grossly nonfocal, awake, alert and oriented x3.
[2024-06-17] MEDS: NSS IV (11:51)
--- NOTE | 2024-06-17 12:24 | PTCARENOTE ---
RIJ Cordis discontinued - no complications noted and VSS throughout; Patient ambulating in hallways with RN
[2024-06-17] MEDS: FERRLECIT 110 MG IV (13:24)
--- NOTE | 2024-06-17 14:25 | CM ---
CM following for DC planning needs.
Met w/ patient, son at bedside.
Pt. reports that he is feeling well, POD#2.
We reviewed DC plan for home w/ CT Transitional Care RN.
We discussed follow up MD appointments and Cardiac Rehab.
Plan is for home w/ CT RN.
Will follow.
[2024-06-17] MEDS: LR 500 IV (14:39)
--- NOTE | 2024-06-17 16:30 | PTCARENOTE ---
Patient dizzy and lightheaded when working with Cardiac Rehab and almost passed out this afternoon - patient transferred back to chair safely; BP low - 83/47; BP up to 110/73 after lying flat for a few minutes and states dizziness/lightheadedness
episode has passed; CVNP Shruti notified - 500 ml LR ordered and given and PO Midodrine dose increased; Patient able to tolerate ambulating in hallway with RN later in afternoon after receiving IVF bolus.
[2024-06-17] MEDS: LIPITOR 80 MG PO (17:10)
[2024-06-17] MEDS: ProAmatine 5 MG PO (17:10)
[2024-06-17] MEDS: ROXICODONE 5 MG PO (19:51)
--- NOTE | 2024-06-17 20:00 | PTCARENOTE ---
assumed care of pt from previous RN. pt A&Ox4, resting in bed at time of assessment. pain management, see MAR. SR w/ prolonged QT on tele-monitor. POX 93% on RA. abd s/n, +BS. voiding clear, annemarie colored urine in bathroom. all surgical sites
stable, CDI. PIV intact. see worklist for complete nursing assessment, interventions, VS, and I&Os.
[2024-06-17] MEDS: CALCIUM GLUCONATE 290 MG IV (20:19)
[2024-06-18] VITALS (8 sets, daily range): BP systolic 86–127; BP diastolic 56–76; PULSE 82; O2SAT 94–98; BMI 26.1
--- NOTE | 2024-06-18 00:15 | PTCARENOTE ---
assessment remains unchanged. POX 86-88% on RA. pt placed on 3 L NC. POX 94-96% on 3 L NC. no c/o pain at this time.
--- NOTE | 2024-06-18 04:17 | W.PN.CT ---
Today's Communication / Plan
-
Plan:
-No major issues overnight. Hemodynamically and neurologically intact
-BP has been soft postop. Some dizziness with ambulation. Has required Midodrine. Placed BB and Flomax on hold. Receiving Norvasc 2.5 mg QDaily for radial art graft patency
-Low grade fever has resolved, likely d/t atelectasis. Cont. to encourage use of IS
-Temporary PW and chest tubes d/c'd yesterday, 06/17/24 without incident
-D/C cordis today
-Cont. current meds (ASA, Plavix, Lipitor, Norvasc for radial artery patency, Amiodarone, Lopressor and Flomax held)
-Maintain temporary PW (will d/c before discharge home)
-Wean off of O2 as tolerated
-OOB into chair
-Ambulate
-Likely home tomorrow
Assessment / Plan
-
Assessment:
-S/p Sternotomy/CABG x 5 (In situ BERTRAND to LAD proper, Ao to RSVG to large diagonal, Ao to left radial to both branches of OM, ao to RSVG to RPDA)/ Endoscopic vein harvesting of right lower extremity/ Endoscopic left radial artery harvest/Left atrial
appendage exclusion [40 mm]/Parasternal block by anesthesia, by Dr. Tatum, 06/15/24, pod#3
-Severe 3v CAD
-NSTEMI (peak trop 12.6)
-USA
-Mild TR
-LVEF 55-60% per intraop FISH
-HLD
-Former tobacco use (quit 15 years ago)
-Daily ETOH use (5-6 beers/daily)
-Acute postop blood loss/Anemia (stable without blood transfusion)
-Acute postop atelectasis
-Acute postop low grade fever, likely d/t atelectasis
-Acute postop hypovolemia with subsequent hypervolemia
Discussed patient care with: Cardiology, Nursing, Respiratory Therapy, Pharmacy and Care Team
Subjective
Procedure
S/p Sternotomy/CABG x 5 (In situ BERTRAND to LAD proper, Ao to RSVG to large diagonal, Ao to left radial to both branches of OM, ao to RSVG to RPDA)/ Endoscopic vein harvesting of right lower extremity/ Endoscopic left radial artery harvest/Left atrial
appendage exclusion [40 mm]/Parasternal block by anesthesia, by Dr. Tatum, 06/15/24
-
Date of Service: June 18, 2024
Pt c/o mild incisional pain, otherwise feels well
Objective Data
-
PT 16.5 Sec (11.4-14.6) H 06/15/24 12:20
INR 1.27 06/15/24 12:20
APTT 30.7 Sec (23.4-35.0) 06/15/24 12:20
Vital Signs
Vital Signs
Temp Pulse Resp BP Pulse Ox
98.8 F 77 14 94/58 96
06/18/24 00:00 06/18/24 02:00 06/18/24 00:00 06/18/24 00:17 06/18/24 02:00
CT Intake/Output/Weight
06/17/24 06/17/24 06/18/24
06:59 18:59 06:59
Intake Total 1210 / 1500 290 / 1500
Output Total 235 / 920 485 / 535 50 / 535
Balance -235 / 1247.9 725 / 965 240 / 965
SaO2: 96 (2L)
Physical Exam
-
General: Awake, Oriented and AOx3
Cardiovascular: Regular rate & rhythm, No Murmurs, No Rub and No Gallop
Respiratory: Decreased Breath Sounds (at bases, otherwise clear)
Sternum: Stable
Incision: Clean, Dry, Intact and Dressing Intact
Extremities: Other (+trace edema)
Data Reviewed
-
Lab Results: Results Reviewed
Medications: Active Meds Reviewed
Chest X-Ray: Report Reviewed and Image Reviewed
ECG: Report Reviewed and Image Reviewed
--- NOTE | 2024-06-18 04:45 | PTCARENOTE ---
no acute changes. VSS. POX 93-94% on 2 L NC.
[2024-06-18 04:57] LABS: Ionized Calcium 1.26 mMOL/L (1.15-1.33)
[2024-06-18 05:09] LABS: Hematocrit 28.9 % (39.0-52.0); Hemoglobin 9.8 g/dL (13.0-18.0); Mean Corp Hgb Conc. 33.9 g/dL (33.0-37.0); Mean Corpuscular Volume 97.3 fL (80.0-94.0); Mean Platelet Volume 10.3 fL (7.4-10.4); Platelet Count 140 10^3/uL (130-400); Red Blood Cell Count 2.97 10^6/uL (4.70-6.10); Red Cell Dist. Width 11.9 % (11.5-14.5); White Blood Cell Count 8.4 10^3/uL (4.8-10.8)
[2024-06-18 05:36] LABS: Blood Urea Nitrogen 17 mg/dl (9-20); Calcium 8.8 mg/dl (8.4-10.2); Carbon Dioxide 33 mmol/L (22-30); Chloride 97 mmol/L (98-107); Estimated Creatinine Clearance 91 ml/min; Glucose 119 mg/dl (70-99); Potassium 4.3 mmol/L (3.5-5.1); Sodium 134 mmol/L (135-145); eGFR > 60.00
[2024-06-18] MEDS: TYLENOL 1000 MG PO ×2 (06:29→13:40)
[2024-06-18] MEDS: CALCIUM GLUCONATE 290 MG IV (07:11)
--- NOTE | 2024-06-18 07:41 | PTCARENOTE ---
Received pt from assistant shift supervisor RN; pt AAOx3 and resting comfortably in chair; NSR on monitor and VSS; PIV x1 patent; Lungs diminished; IS to 1000; positive bowel sounds; pt voiding yellow urine; palpable pules throughout; no edema noted; all surgical
sites C/D/I; see nursing documentation for further details.
[2024-06-18] MEDS: MAGNESIUM OXIDE 500 MG PO (07:47)
[2024-06-18] MEDS: LIDOCAINE 4% PATCH 1 PATCH TOPICAL (07:47)
[2024-06-18] MEDS: ProAmatine 5 MG PO ×2 (07:47→13:40)
[2024-06-18] MEDS: LOW STRENGTH ASPIRIN 81 MG PO (07:48)
[2024-06-18] MEDS: PROTONIX 40 MG PO (07:48)
[2024-06-18] MEDS: SENOKOT-S 1 TABLET PO (07:48)
[2024-06-18] MEDS: PLAVIX 75 MG PO (07:48)
[2024-06-18] MEDS: BACTROBAN 2% OINTMENT 1 APPLIC NASAL (07:49)
[2024-06-18] MEDS: NORVASC 2.5 MG PO (07:49)
[2024-06-18] MEDS: PACERONE 400 MG PO (07:49)
--- NOTE | 2024-06-18 08:53 | W.PN.CARDCBS ---
Today's Communication / Plan
-
Stable cardiology status status post CABG
Remains in sinus rhythm
Impression / Plan
-
PCP: None
Cardiology: None prior to admission
Impression:
Admitted with chest pain 06/11/24
NSTEMI, peak Troponin 12.6
CAD s/p CABG 06/15/24
BERTRAND to LAD proper, Ao to RSVG to large diagonal, Ao to left radial to both branches of OM, Ao to RSVG to RPDA 06/15/24
s/p GREG exclusion 06/15/24
HTN
Mixed hyperlipidemia
Recent EtOH use
Echo 06/13/24: EF 55% with no significant valve disease.
Plan:
Stable cardiology status status post CABG
Remains in sinus rhythm
HPI: Tushar is a 58-year-old male with no significant past medical history. He presents to ER for evaluation of progressively worsening chest tightness. He reports that typically he exercises on the treadmill 3 miles every day, however
approximately 2 to 3 weeks ago he started noting exertional chest tightness during his exercises. He states approximately [facility] through his workout he was started to have chest tightness along the left side of his chest with radiation to his jaw.
He would stop exercising and within a few minutes his symptoms were resolved. Throughout the past couple of weeks, he notes that the chest tightness started happening with less and less exertion, and over the past few days he was only able to
exercise for a few minutes before he needed to stop due to his symptoms. Pain resolved shortly after resting, however but with any resumption of exercise would return. Last evening while sitting on the couch resting, he had more severe chest
tightness with radiation into his jaw that occurred while at rest. As he had not previously had rest symptoms, he decided to come into the ER for evaluation. In ER, initial ECG concerning with anterolateral ST depressions. He was given 3 doses of
sublingual nitroglycerin and pain resolved. Initial troponin negative. Given story concerning for angina with abnormal EKG, he has been admitted and started on IV heparin. Cardiology consulted for evaluation. He notes he does not follow
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 During dermatology visits, he notes his blood pressure has been elevated, however he is not on any antihypertensive medications. Currently he is
pain-free and is resting comfortably in stretcher.
Progress Note - Jinriksha Driver
Subjective
Date of Service: June 18, 2024
No complaints
Objective
Labs:
06/18/24 04:48
06/18/24 04:48
Labs
Hgb 9.8 g/dL (13.0-18.0) L 06/18/24 04:48
Hct 28.9 % (39.0-52.0) L 06/18/24 04:48
Plt Count 140 10^3/uL (130-400) 06/18/24 04:48
PT 16.5 Sec (11.4-14.6) H 06/15/24 12:20
INR 1.27 06/15/24 12:20
APTT 30.7 Sec (23.4-35.0) 06/15/24 12:20
Sodium 134 mmol/L (135-145) L 06/18/24 04:48
Potassium 4.3 mmol/L (3.5-5.1) 06/18/24 04:48
BUN 17 mg/dl (9-20) 06/18/24 04:48
Creatinine 0.9 mg/dL (0.7-1.3) 06/18/24 04:48
Glucose 119 mg/dl (70-99) H 06/18/24 04:48
Vital Signs and I&O:
Vital Signs
Temp Pulse Resp BP Pulse Ox
98.4 F 82 20 101/63 94
06/18/24 07:54 06/18/24 08:00 06/18/24 07:54 06/18/24 07:47 06/18/24 07:54
Vital Signs
Temp Pulse Resp BP Pulse Ox
98.4 F 82 20 101/63 94
06/18/24 07:54 06/18/24 08:00 06/18/24 07:54 06/18/24 07:47 06/18/24 07:54
Intake & Output
06/16/24 06/17/24 06/18/24 06/19/24
06:59 06:59 06:59 06:59
Intake Total 1086.7 / 1127.0 2167.9 / 2167.9 1500 / 1500
Output Total 1210 / 1240 920 / 920 685 / 685 200 / 200
Balance -123.3 / -113.0 1247.9 / 1247.9 815 / 815 -200 / -200
Physical Exam
Physical Exam
General: Well developed, well nourished in NAD.
Neck: Supple, no JVD, HJR, carotids +2 B/L, no bruits bilaterally.
Heart: Non displaced PMI, RRR, no murmurs, No S3, S4, no rubs.
Lungs: Scattered rhonchi
Sternal dressings noted
Extremities: No clubbing, cyanosis or edema bilaterally.
Neuro: Grossly nonfocal, awake, alert and oriented x3.
--- NOTE | 2024-06-18 12:23 | W.DCSUMMARY ---
Discharge Summary
Discharge Data
Date of Admission: 06/11/24
Date of Discharge: 06/18/24
-
Pending Results: No
Hospital Course
Primary care physician: none
Outpatient delivery associate: Mati Lancaster
Inpatient consultants: [facility] Cardiology
Procedures:
1. CABG, left atrial appendage clip
Primary Diagnosis:
1. NSTEMI
Secondary Diagnoses:
1. Triple-vessel coronary disease
2. Hyperlipidemia
3. Daily EtOH consumption
5. Former tobacco abuse
6. Acute postop blood loss anemia (stable without blood transfusion)
7. Acute postop atelectasis
8. Acute postop hypovolemia
HPI: 58-year-old male presented to [facility] on 06/11/24 with complaints of worsening chest pain/chest tightness. 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
during his exercise. At times the chest pain would radiate to his jaw. He did note that when he would stop exercising within a few minutes the symptoms would resolve. However he did note that as time progressed he would have more chest
tightness/discomfort at rest.
Hospital course: Initial EKG reported ST depressions. He was given 3 doses of sublingual nitroglycerin which resolved his pain. Patient ruled in for non-STEMI with peak troponin 12.6. Patient was started on an IV heparin infusion for an NSTEMI
and taken to the [facility] on 06/13 which revealed multivessel disease. Patient was evaluated by CT surgery and was taken to the operating room on 06/15/2024 for coronary artery bypass grafting x 5 (In situ BERTRAND to LAD proper, Ao to RSVG to large
diagonal, Ao to left radial to both branches of OM, ao to RSVG to RPDA), and left atrial appendage exclusion [#40 mm clip] by Dr. Fernando Tatum. A parasternal block was completed by anesthesia. An intraoperative post procedure [facility] reported an EF of
55-60% with mild TR. patient returned to CVICU on Levophed, insulin, and Precedex. Patient was extubated at 1440 and calcium channel claudia initiated to maintain radial patency. Patient reported left thumb and thenar eminence soreness which can
be seen after radial harvesting. There is +2/4 ulnar pulse with good color, movement and sensation to the left hand. Postoperative day #1, patient was dizzy upon standing and he received Midodrine 2.5mg and lactated ringer bolus of 500 cc.
Beta-claudia doses were held. On postoperative day #2, epicardial V wires and chest tubes were removed. Patient again experienced some dizziness with ambulation and Midodrine dose was increased to 5 mg 3 times daily with an additional lactated
ringer bolus of 500 cc. Gabapentin and Flexeril were discontinued as can contribute to dizziness. On postoperative day #3, patient ambulated without incident and tolerated low-dose beta-claudia. His right IJ cordis was removed. The left thumb
soreness remains unchanged. All incisions intact without erythema. Patient evaluated by Dr. Tatum and deemed stable for discharge home. Patient has blood home blood pressure cuff and will monitor blood pressure. Patient instructed he may
discontinue Midodrine if systolic blood pressure consistently remains greater than 110 mmHg. Patient encouraged to seek a primary care provider and to choose another delivery associate as Dr. Lancaster is retiring.
Home medication changes:
all medications are new for patient:
Aspirin/Plavix
Protonix
Toprol XL
Lipitor
Norvasc
Midodrine
Discharge Plan
-
Patient Disposition: Home (Routine Discharge)
Discharge Diagnosis/Procedures: NSTEMI/CABG, left atrial clip
Condition: Good
Diet: Low Cholesterol and Low Sodium
Activity: No strenuous activity
Driving Restrictions: Not until seen by your Dr
Bathing Restrictions: OK to Shower
Other Services: Cardiac Rehab
Specialty Instructions: Weigh Daily- Call MD for wt gain/loss 3 lbs overnight/5 lbs in 1 week
Stand Alone Forms: DC Instructions- Cath/EP Lab
Referrals:
CT Transitional Care Nurse [Outside] (The Cardiothoracic Transitional Care Nurse will call you to set up a visit in 1-2 days.)
[facility] Cardiac Re[facility] [Outside] - 07/25/24 1:00 pm
(Cardiac Rehab Orientation appointment is on 07/25/24 at 1:00pm
The Cardiac Rehab gym is located on the first floor of the [facility].)
Alice Draper PA-C [Specified Professional Personl] - 07/26/24 11:00 am
NONE,* [Family Provider] -
Fernando Tatum MD [Active] - 07/11/24 2:15 pm
Additional Discharge Medication Instructions: Monitor blood pressure daily, may stop Midodrine if systolic BP>110
Prescriptions:
New
atorvastatin 40 mg Tablet
80 mg PO QPM Qty: 30 1RF
acetaminophen 325 mg Tablet
650 mg PO Q4HPRN PRN (Reason: mild pain,headache,temp >101F ) Qty: 0 0RF
amlodipine 2.5 mg Tablet
2.5 mg PO DAILY Qty: 30 2RF
clopidogrel 75 mg Tablet
75 mg PO DAILY Qty: 30 1RF
pantoprazole 40 mg Tablet,Delayed Release (Dr/Ec)
40 mg PO DAILY Qty: 30 1RF
aspirin 81 mg Tablet,Chewable
81 mg PO DAILY Qty: 0 0RF
metoprolol succinate 25 mg Tablet Extended Release 24 Hr
12.5 mg PO DAILY Qty: 30 1RF
oxycodone 5 mg Tablet
5 mg PO Q4HPRN PRN (Reason: severe pain) Qty: 20 0RF
midodrine 5 mg Tablet
5 mg PO TID@0800,1300,1800 Qty: 30 0RF
Discharge Orders:
Discharge Patient (As Directed); Ordered 06/18/24
Ordered By: Shruti Phan
Discharge Date and Time
Print Language: ITALIAN
--- NOTE | 2024-06-18 12:43 | PTCARENOTE ---
Assessment unchanged; NSR on monitor and VSS; pt resting comfortably in chair with at bedside.
[2024-06-18] MEDS: NSS IV (13:09)
--- NOTE | 2024-06-18 14:16 | PTCARENOTE ---
Patient showered self with CHG; radiation monitor removed; IV removed; discharge paperwork gone over with patient and ; all questions answered.
== END 2024-06-18 15:29 | disposition home or self-care (01) | DRG 234 ==
LOC: CVICU 13:06
PROVIDERS: Anesthesiology; Clinical Nurse Specialist Acute Care; Internal Medicine; Internal Medicine Cardiovascular Disease; Internal Medicine Interventional Cardiology; Nurse Practitioner; Physician Assistant Surgical; Student in an Organized Health Care Education/Training Program; ADMITTING PHYSICIAN Hospitalist; ATTENDING PHYSICIAN Thoracic Surgery (Cardiothoracic Vascular Surgery); CONSULT PHYSICIAN Internal Medicine Critical Care Medicine; EMERGENCY PHYSICIAN Emergency Medicine; OTHER PHYSICIAN Internal Medicine Cardiovascular Disease
PROC: B2111ZZ Fluoroscopy of Multiple Coronary Arteries using Low Osmolar Contrast (ICD-10-PCS; 2024-06-13)
PROC: B2151ZZ Fluoroscopy of Left Heart using Low Osmolar Contrast (ICD-10-PCS; 2024-06-13)
PROC: 4A023N7 Measurement of Cardiac Sampling and Pressure, Left Heart, Percutaneous Approach (ICD-10-PCS; 2024-06-13)
PROC: B24BZZ4 Ultrasonography of Heart with Aorta, Transesophageal (ICD-10-PCS; 2024-06-15)
PROC: 02100Z9 Bypass Coronary Artery, One Artery from Left Internal Mammary, Open Approach (ICD-10-PCS; 2024-06-15)
PROC: 03BC4ZZ Excision of Left Radial Artery, Percutaneous Endoscopic Approach (ICD-10-PCS; 2024-06-15)
PROC: 021209W Bypass Coronary Artery, Three Arteries from Aorta with Autologous Venous Tissue, Open Approach (ICD-10-PCS; 2024-06-15)
PROC: 02100AW Bypass Coronary Artery, One Artery from Aorta with Autologous Arterial Tissue, Open Approach (ICD-10-PCS; 2024-06-15)
PROC: 5A1221Z Performance of Cardiac Output, Continuous (ICD-10-PCS; 2024-06-15)
PROC: 02L70CK Occlusion of Left Atrial Appendage with Extraluminal Device, Open Approach (ICD-10-PCS; 2024-06-15)
PROC: 06BP4ZZ Excision of Right Saphenous Vein, Percutaneous Endoscopic Approach (ICD-10-PCS; 2024-06-15)
DX: I21.4 Non-ST elevation (NSTEMI) myocardial infarction (principal); D62 Acute posthemorrhagic anemia; J98.11 Atelectasis; F10.10 Alcohol abuse, uncomplicated; I25.10 Atherosclerotic heart disease of native coronary artery without angina pectoris; L40.8 Other psoriasis; E78.2 Mixed hyperlipidemia; E86.1 Hypovolemia; E87.70 Fluid overload, unspecified; I10 Essential (primary) hypertension; I07.1 Rheumatic tricuspid insufficiency; Z87.891 Personal history of nicotine dependence
CPT/HCPCS: 71045; 71046; 71250; 80048; 80053; 80061; 81003; 82248; 82330; 82565; 82805; 82947; 82962; 82977; 83036; 83735; 84100; 84132; 84302; 84484; 84520; 85014; 85018; 85025; 85027; 85049; 85610; 85730; 86850; 86900; 86901; 86920; 93005; 93306; 93312; 93320; 93325; 93458; 93880; 93923; 93931; 94002; 94010; 96361; 96365; 96366; 99153; 99285; C1894; J2916; Q9967

== ENCOUNTER 2024-08-10 08:36 | Outpatient (RCR) | payer BC, SELFPAY | END 2024-08-10 23:59 | disposition home or self-care (01) | LOC: CRHB 08:36 | PROVIDERS: ATTENDING PHYSICIAN Internal Medicine Cardiovascular Disease | DX: I25.2 Old myocardial infarction (principal); I21.4 Non-ST elevation (NSTEMI) myocardial infarction (principal); Z95.1 Presence of aortocoronary bypass graft | CPT/HCPCS: 93797; 93798 ==

== ENCOUNTER 2024-09-12 07:30 | Outpatient (RCR) | payer BC, SELFPAY | END 2024-09-12 09:49 | disposition home or self-care (01) | LOC: CRHB 07:30 | PROVIDERS: ATTENDING PHYSICIAN Internal Medicine Cardiovascular Disease | DX: I21.4 Non-ST elevation (NSTEMI) myocardial infarction (principal); I25.10 Atherosclerotic heart disease of native coronary artery without angina pectoris (principal); I25.2 Old myocardial infarction (principal); Z95.1 Presence of aortocoronary bypass graft | CPT/HCPCS: 93797; 93798 ==

== ENCOUNTER 2024-12-21 08:28 | Inpatient (IN) | payer BC, SELFPAY ==
[2024-12-20] VITALS (22 sets, daily range): BP systolic 131–166; BP diastolic 78–105; BMI 25.3; BMI 24.5
--- NOTE | 2024-12-20 00:19 | ED.GENMED ---
History of Present Illness
General
Chief Complaint: CVA/TIA Symptoms
Source: patient and ambulance crew
Exam Limitations: none
Time Seen by Provider: 12/20/24 00:17
History of Present Illness
History of Present Illness:
See MDM
Past History
Past History
ED Past Medical History: Other (Psoriasis)
ED Past Surgical History: Orthopedic
Social History
Tobacco: Non-smoker
Drug: None
Personal:
Living: with family
Phy Exam
Physical Exam
Physical Exam:
See MDM
Scores
NIH Stroke Score
Level of Consciousness: 0 - Alert
LOC Questions: 0-Answers both correctly
LOC Commands: 0-Performs both correctly
Best Horizontal Gaze: 0-Normal
Visual Brooks: 1=Partial hemianopia
Facial Palsy: 0=Normal, symmetrical
Motor - Right Arm: 0=No drift 10 seconds
Motor - Left Arm: 1=Drift < 10 seconds
Motor - Right Le-No drift 5 seconds
Motor - Left Le-Drift < 5 seconds
Limb Ataxia: 0-Absent
Sensation: 0-Normal
Best Language: 0-No aphasia
Dysarthria: 0-Normal
Extinction and Inattention: 0-No abnormality
NIH Total Score:: 3
Course
Orders/Labs/Results
Orders:
Orders
12/20/24 00:17
Electrocardiogram (*1) Urgent
Reason for Study: Other
Other Reason for Exam: Possible Stroke
CT BRAIN PERF STROKE ALERT Urgent
Comment:
Reason For Exam: left side weakness
CT HEAD STROKE ALERT W/o Cont Urgent
Comment:
Reason For Exam: left side weakness
CT HEAD/NECK ANG STROKE ALERT Urgent
Comment:
Reason For Exam: left side weakness
Bedside Glucose- Treatment ONCE
Cardiac Monitoring- Treatment ONCE
Urinalysis Reflex To Culture Urgent
Date Specimen was Collected: 12/20/24
Time Specimen was Collected: 00:18
Vital Signs As Directed
Frequency: Other
Weight As Directed
Frequency: Once
Comment: ZERO STRETCHER SCALE FOR ACCURATE WEIGHT
12/20/24 00:18
EKG- Treatment ONCE
12/20/24 00:49
Complete Blood Count/With Diff Urgent
Comprehensive Metabolic Panel Urgent
PTT Urgent
Prothrombin Time Urgent
Troponin I Urgent
12/20/24 01:09
Clopidogrel Bisulfate [Plavix] 225 mg PO NOW STA
Abnormal Lab Results
12/20/24 12/20/24
00:17 00:49
RBC 3.93 L 10^6/uL
(4.70-6.10)
Hgb 12.7 L g/dL
(13.0-18.0)
Hct 36.3 L %
(39.0-52.0)
MCH 32.3 H pg
(27.0-31.0)
Monocytes % 10.8 H %
(1.7-9.3)
Glucose 111 H mg/dl
(70-99)
Total Protein 6.0 L g/dl
(6.3-8.2)
POC Glucose 129 H mg/dl
(70-99)
12/20/24 00:49
12/20/24 00:49
Vital Signs
Initial and Last Documented VS:
Initial Vital Signs
Pulse Resp
77 16
12/20/24 00:47 12/20/24 00:47
Last Documented Vital Signs
Temp Pulse Resp BP Pulse Ox
99.0 F 72 16 153/105 98
12/20/24 00:58 12/20/24 01:00 12/20/24 00:47 12/20/24 01:00 12/20/24 01:00
MDM/Problems Addressed
Differential Diagnosis Includes:
HPI and MDM Narrative:
59-year-old male presenting as a prearrival stroke alert. When patient arrived to the emergency department, he was at a immediately to the CT scanner. EMS stating that they were called and patient had word finding issues and patient had trouble
moving his left arm. Patient is conversing without difficulty and stating that his left arm is difficult to move. He states he went to bed at 11 PM and felt fine. He woke up at 1130 and noted the symptoms. Patient denies being on blood thinners.
Concerning leg, patient found to have left lower quadrant field deficit in both eyes
Physical exam
General: Well appearing and non-toxic
HEENT: protecting airway. Pupils equal reactive. Left lower quadrant field deficit in both eyes
Neck: appears supple
CV: No evidence of cyanosis
Resp: No accessory muscle use
Abd: Non-distended
Extremities: No deformities
Neuro: alert. No aphasia or dysarthria. Minor drift to left arm and left leg
Psych: Normal affect
Skin: Intact
Problems Addressed including Acute and Chronic Conditions affecting care:
1. Strokelike symptoms
Acuity: acute
Prognosis: unstable
Details: Stroke alert called by EMS. Patient sent directly to CT scanner. Will obtain CT angiogram and CT perfusion
Updates
12:[address] head negative
1 AM Case discussed with neuro fellow Dr. Parker. At this point, all symptoms are resolving and NIH is 0. We discussed loading with aspirin and Plavix and admitting. He is not at a candidate at this moment given the improved symptoms. Patient
already took 4 baby aspirin and 75 mg of Plavix earlier today. Will load with more plavix
Differential Diagnosis (but not limited to): Stroke, intracranial mass
Testing considered: Carotid ultrasound
Drug therapy (if applicable): OTC meds, please see d/c instruction regarding Rx drugs
Amount and/or Complexity of Data Reviewed
Clinical info obtained from: Patient
External data reviewed: N/A
Labs I independently reviewed (but not limited to): hgb stable
Radiology: The CT scan was personally and independently reviewed. In addition, official CT report reviewed.
Pulse Ox: not hypoxic
EKG independently reviewed: N/A
Transportation Broker: N/A
Critical Care: N/A
Risk of Complication:
Social Determinants of health: Good social support
Discussed with other providers: Hospitalist, radiologist
Escalation of Care includes Admit/Obs: Given the significant TIA, will admit for further workup
Occasional wrong word or 'sound a like' substitutions may have occurred due to the inherent limitations of voice recognition software. Read the chart carefully and recognize, using context, where substitutions have occurred.
*Pulse Oximetry
Patient hypoxic: no
*Critical Care Note
Total Time (30-74mins, 75-104mins- exclusive of procedures): Not Applicable
ED Attending Note
-
Portions of this chart may have been created with voice recognition software.� Occasional wrong word or��sound alike� substitutions may have occurred due to the inherent limitations of voice recognition software.
Discharge Plan
Departure
Patient Disposition: Admit
Date of Disposition: 12/20/24
Time of Disposition: 01:15
Admit to: Telemetry
Presentation/result/management discussed w/ accepting MD/DO: Hospitalist
Discharge Problem:
Brain TIA
Prescriptions:
No Action
atorvastatin 40 mg Tablet
80 mg PO QPM Qty: 30 1RF
acetaminophen 325 mg Tablet
650 mg PO Q4HPRN PRN (Reason: mild pain,headache,temp >101F ) Qty: 0 0RF
amlodipine 2.5 mg Tablet
2.5 mg PO DAILY Qty: 30 2RF
clopidogrel 75 mg Tablet
75 mg PO DAILY Qty: 30 1RF
pantoprazole 40 mg Tablet,Delayed Release (Dr/Ec)
40 mg PO DAILY Qty: 30 1RF
aspirin 81 mg Tablet,Chewable
81 mg PO DAILY Qty: 0 0RF
metoprolol succinate 25 mg Tablet Extended Release 24 Hr
12.5 mg PO DAILY Qty: 30 1RF
oxycodone 5 mg Tablet
5 mg PO Q4HPRN PRN (Reason: severe pain) Qty: 20 0RF
midodrine 5 mg Tablet
5 mg PO TID@0800,1300,1800 Qty: 30 0RF
Referrals:
UNKNOWN - PT DOES,NOT KNOW [Family Provider]
Interventions
Interventions:
*Risk Screen - Suicide Last Done: 12/20/24 01:08
*General Assessment Last Done: 12/20/24 01:00
*Neglect/Abuse Screening Last Done: 12/20/24 01:08
*ED- Fall Risk Assessment Last Done: 12/20/24 00:41
*ED COVID-19 Vaccine History Last Done: 12/20/24 00:41
Discharge Date and Time
Print Language: L[place]
[2024-12-20 00:20] LABS: Glucose - Point of Care 129 mg/dl (70-99)
[2024-12-20 00:55] LABS: Hematocrit 36.3 % (39.0-52.0); Hemoglobin 12.7 g/dL (13.0-18.0); Mean Corp Hgb Conc. 35.0 g/dL (33.0-37.0); Mean Corpuscular Volume 92.4 fL (80.0-94.0); Nucleated Red Blood Cells % 0 % (-); Platelet Count 175 10^3/uL (130-400); Red Cell Dist. Width 13.7 % (11.5-14.5)
[2024-12-20 01:03] LABS: INR 1.22; PT 15.7 Sec (11.4-14.6)
[2024-12-20 01:04] LABS: APTT 30.9 Sec (23.4-35.0)
[2024-12-20 01:13] LABS: ALT (SGPT) 27 U/L (0-50); AST (SGOT) 30 U/L (17-59); Albumin 3.8 g/dl (3.5-5.0); Alkaline Phosphatase 73 U/L (38-126); Blood Urea Nitrogen 18 mg/dl (9-20); Calcium 9.1 mg/dl (8.4-10.2); Carbon Dioxide 26 mmol/L (22-30); Chloride 106 mmol/L (98-107); Estimated Creatinine Clearance 89 ml/min; Glucose 111 mg/dl (70-99); Potassium 4.3 mmol/L (3.5-5.1); Sodium 137 mmol/L (135-145); Total Protein 6.0 g/dl (6.3-8.2); eGFR > 60.00
[2024-12-20 01:18] LABS: Troponin I < 0.012 ng/ml
[2024-12-20] MEDS: PLAVIX 225 MG PO (01:20)
[2024-12-20] MEDS: TYLENOL 650 MG PO (01:40)
--- NOTE | 2024-12-20 02:37 | HPS.HSE ---
Family Physician
-
Family Physician: NOT KNOW UNKNOWN - PT DOES
Chief Complaint
-
Visual field deficits, left arm and hand sensory deficits and LUE ataxia
History of Present Illness
The patient is a 59-year-old gentleman with past medical history significant for psoriasis who presented to the emergency department today secondary to word finding issues and difficulty moving his left arm. He was also complaining of visual field
deficit in the left lower quadrant of both eyes. On arrival to the emergency department his NIH score was 3. The ED physician called a stroke alert and reached out to [facility]. By the time he spoke to them that the patient's symptoms
had resolved to an NIH score of 0. The patient, on my review, is c/o persistent visual field deficits and left arm sensation deficits/LUE ataxia, not at baseline though improved from when he first arrived. The patient is conversing without
difficulty however his left arm remained difficult to move in the emergency department. When he went to bed at 11 PM tonight he felt fine and woke up at around 11:30 in the morning and noticed his symptoms. He is not on blood thinners.
ED txt:
Plavix 225 mg
Tyenol 650 mg
Medical History
Past Medical History
Past Medical History: Reports Hypercholesterolemia, [place] (NSTEMI) and Other (Psoriasis, CAD)
Past Surgical History: Reports Cardiac (CABG ), Orthopedic and Other
Additional Past Surgical History:
Knee Arthroscopy
Social History
Tobacco: Former Smoker (Quit smoking about 15 years ago. Approx 20 pack years total use.)
Alcohol: Former (5-6 beers daily-former drinker, infrequent drinking currently)
Drug: None
Personal:
Living: With Family
Family History
Family History: Adopted
Allergies / Home Medications
Allergies reflects when Allergies were last updated in [employer].
Home Medications with original date entered in [employer]
Allergy/Medication List:
Allergies
Allergy/AdvReac Type Severity Reaction Status Date / Time
No Known Allergies Allergy Verified 12/20/24 00:37
Home Medications
aspirin 81 mg chewable tablet 81 mg PO DAILY Heart disease/condition #0 tabs 06/18/24
clopidogrel 75 mg tablet 75 mg PO DAILY Heart disease/condition #30 tabs 06/18/24
metoprolol succinate 25 mg tablet,extended release 24 hr 12.5 mg (1/2 x 25 mg) PO DAILY Heart disease/condition #30 tabs 06/18/24
pantoprazole 40 mg tablet,delayed release 40 mg PO DAILY GI prophylaxis while on Plavix #30 tabs 06/18/24
atorvastatin 20 mg tablet 20 mg PO HS 12/20/24
evolocumab 140 mg/mL subcutaneous syringe (Repatha Syringe) 140 mg SC Q2W 12/20/24
Review of Systems
-
A 12 point ROS was completed and negative except as noted: Yes
Physical Exam
Vital Signs
Vital Signs
Temp Pulse Resp BP Pulse Ox
99.0 F 69 16 135/97 95
12/20/24 00:58 12/20/24 02:15 12/20/24 02:15 12/20/24 02:15 12/20/24 02:15
Physical Exam
General: Well Developed, Well Nourished, No Apparent Distress, Comfortable and Conversant
HEENT: NormoCephalic, Anicteric and Moist mucous membranes
Respiratory: Clear
Cardiac: S1/S2 and Regular Rhythm
GI: Soft, Non Tender and Non Distended
Musculoskeletal: No Clubbing, No Cyanosis and No Edema
Skin: Warm and Dry
Neuro: Other (visual blurriness in lower visual har[place], sensory deficit left hand and forearm, finger to nose on left - patient passes finger, unable to locate finger touch)
Psych: Calm
Laboratory Results
-
12/20/24 00:49
12/20/24 00:49
Laboratory Results
PT 15.7 Sec (11.4-14.6) H 12/20/24 00:49
INR 1.22 12/20/24:49
APTT 30.9 Sec (23.4-35.0) 12/20/24:49
Total Bilirubin 0.4 mg/dl (0.2-1.3) 12/20/24 00:49
AST 30 U/L (17-59) 12/20/24:49
ALT 27 U/L (0-50) 12/20/24 00:49
Alkaline Phosphatase 73 U/L (38-126) 12/20/24:49
Troponin I < 0.012 ng/ml 12/20/24 00:49
Data Reviewed
-
CT Scan: Report Reviewed by me (Preliminary report reviewed shows bilateral atherosclerotic calcifications of the proximal right internal carotid arteries with mild narrowing of the origins of the internal carotid arteries right greater than left
patent telida of Ray)
Impression/Plan
-
IMPRESSION:The patient is a 59-year-old gentleman with past medical history significant for psoriasis who presented to the emergency department today secondary to word finding issues and difficulty moving his left arm. He was also complaining of
visual field deficit in the left lower quadrant of both eyes. On arrival to the emergency department his NIH score was 3. The ED physician called a stroke alert and reached out to [facility]. By the time he spoke to them that the
patient's symptoms had resolved to an NIH score of 0. The patient, on my review, is c/o persistent visual field deficits and left arm sensation deficits/LUE ataxia, not at baseline though improved from when he first arrived. The patient is
conversing without difficulty however his left arm remained difficult to move in the emergency department. When he went to bed at 11 PM tonight he felt fine and woke up at around 11:30 in the morning and noticed his symptoms. He is not on blood
thinners.
ED txt:
Plavix 225 mg
Tyenol 650 mg
# Concern is for acute CVA, STroke alert- ED provider discussed the patient with [facility] who recommended to load the patient with Plavix and continue aspirin, they did not recommend acute intervention at this time. The patient took 4 baby
aspirin today already.
CT of the head preliminary report reviewed shows bilateral atherosclerotic calcifications of the proximal right internal carotid arteries with mild narrowing of the origins of the internal carotid arteries right greater than left patent telida of
Ray
-Admit to telemetry monitoring
-Serial neuro-checks
-Neurology consultation
-MRI of the brain and neck
-Echocardiogram
-Aspirin and Plavix
-Statin therapy
#Hx of NSTEMI 06/11 s/p CABG indication Multivessel Coronary Artery Disease with NSTEMI June 15 2024 at [facility]
#HLD
DVT prophylaxis-SCDs
Full code
[2024-12-20 04:13] LABS: Urine Character Clear (Clear)
[2024-12-20 04:49] LABS: Urine Squamous Cell 0-2 /LPF (Few)
[2024-12-20 04:50] LABS: Urine Red Blood Cell None Seen /HPF (0-2); Urine White Cell None Seen /HPF (0-5)
[2024-12-20 06:44] LABS: HDL Cholesterol 49 mg/dl; LDL Cholesterol, Calculated 6 mg/dl; Very Low Density Lipoprotein 21 mg/dl (0-30)
--- NOTE | 2024-12-20 09:19 | CON.NEURO ---
Addendum entered and electronically signed by Faustnio Franks MD 12/20/24 13:26:
Studies reviewed.
I have personally examined the patient. I reviewed and agree with the SILVER SOLDERER's Note.
My addenda:
Awake, alert, interactive. No acute distress.
Speech intact.
Follows 2-step requests w/o difficulty. No tremor.
Extra-ocular movements grossly intact.
Facial movements full and symmetric. Hearing intact to normal conversational volume.
Normal UE movements bilaterally.
Neck: full ROM.
Chest: no dyspnea
Heart: no JVD
Ext: (-) Clubbing, (-) Cyanosis, (-) Edema
IMPRESSIONS/RECOMMENDATIONS:
Abrupt onset of left arm weakness and left homonymous hemianopsia
Most likely due to new onset of stroke despite use of aspirin and clopidogrel
Check MRI of brain
Check efficacy of those meds (aspirin and clopidogrel) through checking P2Y12 assay
Plan on altering use of clopidogrel to the use of ticagrelor 90 mg twice a day
Patient has markedly low cholesterol level, at this time, continue both evolocumab and atorvastatin
Rehabilitation evaluation and treatment
Appreciate evaluation by cardiology for the placement of a cardiac (Linq) monitor implant to determine if there is a dysrhythmia which is producing symptoms
Appreciate evaluation by cardiology to determine if FISH would be helpful
Will continue to follow pending results.
Original Note:
Documented by User: Katie Ruiz NP 12/20/24 11:14
Neuro Assessment/Plan
Assessment
The patient is a 59-year-old right-handed male with past medical history significant for psoriasis, NSTEMI (06/11/24) s/p CABG (06/2024) who presented to [facility] on 12/20/2024 secondary to word finding issues and difficulty moving his left arm.
Head CT: no acute intracranial abnormality
CT perfusion: no focal perfusion abnormalities
Head and neck CTA: no significant stenosis, aneurysm or occlusion.
Labs: Cholesterol 76, LDL 6, Hgb A1C pending
Echocardiogram:
Normal biventricular size and systolic function without regional wall motion
abnormality.
LV ejection fraction is 55-60% by Martinez's method.
Normal diastolic function.
Normal right ventricular size and function.
Mild mitral regurgitation.
Aortic sclerosis without stenosis. Trace aortic regurgitation.
Mild tricuspid regurgitation.
Estimated pulmonary artery pressure of 34 mmHg, assuming a right atrial
pressure of 3 mmHg.
The aortic root is of normal size: Sinus of Valsalva 2.8 cm, sinotubular
junction 2.3 cm, proximal ascending aorta 2.6 cm.
Plaque seen in the aortic root and descending aorta.
Compared to transthoracic echocardiogram dated 06/13/2024, no significant
change. Patient also had an intraoperative transesophageal echocardiogram
06/15/2024 which reported no left atrial appendage thrombus; Left atrial
appendage exclusion [40 mm] with no flow. Study also reported grade 3-4
atheromatous disease in the aortic arch and descending thoracic aorta.
Plan
Impression: abrupt onset of left upper extremity sensory changes and left hemianopsia due to acute ischemic stroke
-check MRI brain without contrast to evaluate for stroke
-BP goal is normotension.
-patient on aspirin and clopidogrel, will check aspirin and P2Y12 to ensure he is a responder, if not will switch to ticagrelor 90 mg BID
-check hemoglobin A1C. Goal is normoglycemia.
-current LDL 6, patient is on atorvastatin and repatha does not need to be on both would consider discontinuing one
-PT/OT/ST evaluations
-DVT prophylaxis
-continue neurochecks and NIHSS per unit guidelines
-education material to be provided
-will need coagulation workup outpatient
All questions encouraged and answered, plan of care discussed with Dr. Franks, hospitalist and patient
Consultation
Order
Date of Consultation: 12/20/24
Requesting Provider: hospitalist
Reason for Consult: left upper extremity weakness and vision changes
Subjective/Objective
Subjective Data
Date of Service: December 20, 2024
The patient is a 59-year-old right-handed male with past medical history significant for psoriasis, NSTEMI (06/11/24) s/p CABG (06/2024) who presented to [facility] on 12/20/2024 secondary to word finding issues and difficulty moving his left arm. He was
also complaining of visual field deficit in the left lower quadrant of both eyes. When he went to bed at 11 PM he felt fine and woke up at around 11:30 and noticed his symptoms. He noticed left arm weakness and numbness. Shortly after noticed left
lower quadrant field deficit in both eyes and difficulty reaching for objects. He states he had a headache at the same time but resolved with Tylenol. No issues reported in lower extremities. Denies bulbar symptoms, denies issues with hearing.
Denies balance or gait abnormalities. Patient denies being on blood thinners. He was on aspirin 81 mg, clopidogrel 75 mg, atorvastatin 20 mg, and repatha prior to admission.
On arrival to the emergency department his NIH score was 3. The ED physician called a stroke alert and reached out to [facility]. By the time he spoke to them, the patient's symptoms had resolved to an NIHSS of 0. He did not receive TNK
due to symptoms resolving and NIHSS decreasing to 0. He already took 4 baby aspirin and 75 mg of clopidogrel prior to admission and was loaded with 225 mg of clopidogrel. His head CT showed no acute intracranial abnormality. His CT perfusion showed
no focal perfusion abnormalities. Head and neck CTA showed no significant stenosis, aneurysm or occlusion. His blood pressure was mildly elevated at 161/92. Lipid panel was on the lower side with Cholesterol of 76 and LDL of 6.
Currently he is still experiencing left upper extremity numbness and left hemianopsia. Exam notable for left upper extremity pronator drift. Current NIHSS 4. Brain MRI is pending.
Objective Data
Vital Signs
Temp Pulse Resp BP Pulse Ox
97.8 F 70 20 163/78 96
12/20/24 07:00 12/20/24 07:00 12/20/24 07:00 12/20/24 07:00 12/20/24 07:00
Lab Results
12/20/24 00:49
12/20/24 00:49
PT 15.7 Sec (11.4-14.6) H 12/20/24 00:49
INR 1.22 12/20/24 00:49
APTT 30.9 Sec (23.4-35.0) 12/20/24 00:49
Sodium 137 mmol/L (135-145) 12/20/24 00:49
Potassium 4.3 mmol/L (3.5-5.1) 12/20/24 00:49
BUN 18 mg/dl (9-20) 12/20/24 00:49
Glucose 111 mg/dl (70-99) H 12/20/24 00:49
Calcium 9.1 mg/dl (8.4-10.2) 12/20/24 00:49
LDL Cholesterol, Calc 6 mg/dl 12/20/24 06:04
Patient Allergies
No Known Allergies Allergy (Verified 12/20/24 00:37)
CVA Assessment
Onset of Stroke Symptoms
Onset of symptoms known: Yes
Date of onset of symptoms: 12/19/24
Time of onset of symptoms: 23:30
Time pt last seen normal is known: Yes
Date last time pt seen normal: 12/19/24
Time last time pt seen normal: 23:30
NIH Stroke Score
Level of Consciousness: 0 - Alert
LOC Questions: 0-Answers both correctly
LOC Commands: 0-Performs both correctly
Best Horizontal Gaze: 0-Normal
Visual Brooks: 1=Partial hemianopia
Facial Palsy: 0=Normal, symmetrical
Motor - Right Arm: 0=No drift 10 seconds
Motor - Left Arm: 1=Drift < 10 seconds
Motor - Right Le-No drift 5 seconds
Motor - Left Le-No drift 5 seconds
Limb Ataxia: 1-Present in one limb
Sensation: 1-Mild loss
Best Language: 0-No aphasia
Dysarthria: 0-Normal
Extinction and Inattention: 0-No abnormality
NIH Total Score:: 4
Tenecteplase Contraindications
Inclusion and Exclusion criteria reviewed: Yes
IAT Contraindications: >6 hrs from onset/last seen normal and NIHSS < 6
Modified [place] Score (MRS)
-
Modified [place] Scale (mRS): Slight disability. Able to look after own affairs.
Score: 2
Review of Systems
-
History Source: Patient
Constitutional: No Symptoms
EENT: Blurry Vision and Decreased Vision
Respiratory: No Symptoms
Cardiac: No Symptoms
Abdomen/GI: No Symptoms
Genitourinary: No Symptoms
Musculoskeletal: No Symptoms
Skin: No Symptoms
Neuro: Weakness (LUE) and Numbness (LUE)
Endocrine: No Symptoms
Allergy / Immunology: No Symptoms
Physical Exam
-
General: Well Developed, No Apparent Distress, Comfortable and Appears Stated Age
HEENT: Normocephalic, Atraumatic and Anicteric
Neck: Full Range of Motion
Respiratory: No Dyspnea
Cardiac: No JVD
GI: Non-distended
Skin: Unremarkable
Extremities: No Clubbing, No Cyanosis and No Edema
Psych: Unremarkable
Extended Neurological Exam
Mood & Affect: Mood Unremarkable
Attention Span & Concentration: Awake, Alert, Interactive and No Difficulty with 2 Step Request
Memory: Unremarkable
Tremor: Hand Tremor Absent and Head Tremor Absent
Involuntary Movement: None
Speech: Quality Unremarkable, Quantity Unremarkable and Rate of Production Unremarkable
Cranial Nerve II: Left Eye: Visual Brooks Reduced (left hemianopsia )
Cranial Nerve II: Right Eye: Visual Brooks Reduced (left hemianopsia )
Cranial Nerves III, IV, : Extraocular Movement: Extraocular Movement Full in all Directions
Cranial Nerve VII: Facial Symmetry: Normal Facial Symmetry
Cranial Nerve VIII: Hearing: Unremarkable Hearing to Normal Conversational Volume
Cranial Nerves IX, X: Palate Movement: Palate Elevation Symmetric
Cranial Nerve XII: Tongue Protusion: Midline
Muscle Strength, Overall: Full Throughout
Muscle Bulk & Tone: Bulk Unremarkable and Tone Unremarkable
Pronator Drift: Drift in Left Upper Extremity
Deep Tendon Reflexes: Unremarkable Throughout
Coordination: Other (LUE ataxia )
Data Reviewed
-
CT-A: Report Reviewed and Image Reviewed
CT-Perfusion: Report Reviewed and Image Reviewed
CT Head: Report Reviewed and Image Reviewed
MRI Head: Ordered
Labs: Report Reviewed
Lipid Profile: Report Reviewed
HgbA1C: Report Reviewed
Reviewed with: Physician and Patient
Old Records: Summarized
Medications
-
Active Medications
Generic Name Dose Route Start Last Admin
Trade Name Freq PRN Reason Stop Dose Admin
Acetaminophen 650 mg 12/20/24 03:44
Acetaminophen 650 Mg Rectal Suppository RECTAL 01/17/25 03:43
Q4HPRN PRN
RICHARDSON, mild pain, or temp >100.4F
Acetaminophen 650 mg 12/20/24 03:44
Acetaminophen 325 Mg Tablet PO 01/17/25 03:43
Q4HPRN PRN
RICHARDSON, mild pain, or temp >100.4F
Aspirin 81 mg 12/20/24 08:00
Aspirin 81 Mg Chewable Tablet PO 01/17/25 07:59
DAILY ADITYA
Atorvastatin Calcium 20 mg 12/20/24 22:00
Atorvastatin (Lipitor) 20 Mg Tablet PO 01/17/25 21:59
HS ADITYA
Clopidogrel Bisulfate 75 mg 12/20/24 08:00
Clopidogrel 75 Mg Tablet PO 01/17/25 07:59
DAILY ADITYA
Metoprolol Succinate 12.5 mg 12/20/24 08:00
Metoprolol 12.5 Mg Extended Release Dose (1/2 Of 25 Mg Xl Tablet) PO 01/17/25 07:59
BID ADITYA
Pantoprazole Sodium 40 mg 12/20/24 08:00
Pantoprazole 40 Mg Delayed Release Tablet PO 01/17/25 07:59
DAILY ADITYA
Sodium Chloride 0 flush 12/20/24 04:00
Sodium Chloride 0.9% (Flush) Syringe IV 01/17/25 03:59
PER PROTOCOL ADITYA
Home Medications
�Medication �Instructions �Recorded
aspirin 81 mg chewable tablet 81 mg PO DAILY Heart 06/18/24
disease/condition #0 tabs
clopidogrel 75 mg tablet 75 mg PO DAILY Heart 06/18/24
disease/condition #30 tabs
metoprolol succinate 25 mg 12.5 mg (1/2 x 25 mg) PO DAILY 06/18/24
tablet,extended release 24 hr Heart disease/condition #30 tabs
pantoprazole 40 mg tablet,delayed 40 mg PO DAILY GI prophylaxis 06/18/24
release while on Plavix #30 tabs
atorvastatin 20 mg tablet 20 mg PO HS 12/20/24
evolocumab 140 mg/mL subcutaneous 140 mg SC Q2W 12/20/24
syringe (Repatha Syringe)
Past History
Past History
ED Past Medical History: Other (Psoriasis)
ED Past Surgical History: Orthopedic
Family/Social History
Tobacco: Non-smoker
Drug: None
Personal:
Living: with family

Documented by User: Faustino Franks MD 12/20/24 12:02
CVA Assessment
NIH Stroke Score
NIH Total Score:: 4
Modified Calaveras Score (MRS)
-
Score: 2
--- NOTE | 2024-12-20 10:10 | PTOTSP ---
Speech Language Pathology
Pt seen for cognitive-linguistic evaluation via the [place] Cognitive Assessment (MOCA), version 8.2. Pt with an overall score of 24/30 where normal range is 26-30. Pt with mild cognitive deficits. Visuospatial tasks affected by vision issues,
not cognitive issue.
Pt also seen for clinical bedside swallow evaluation. Pt reported he ate breakfast and took multiple meds at once with water without difficulty. P.O. trials of regular solids and thin liquids provided. Adequate mastication, bolus formation, and
A-P transit noted. No oral residue. No overt signs of aspiration.
Recommend:
(1) Continue regular solids/thin liquids
(2) General aspiration precautions
(3) Meds as tolerated
(4) WORK FORCE ADVISOR to continue to follow for cognitive-linguistic tx. Further dysphagia services not indicated
(5) Acute rehab at discharge
[2024-12-20] MEDS: TOPROL XL 12.5 MG PO ×2 (10:42→19:52)
[2024-12-20] MEDS: LOW STRENGTH ASPIRIN 81 MG PO (10:42)
[2024-12-20] MEDS: PLAVIX 75 MG PO (10:42)
[2024-12-20] MEDS: PROTONIX 40 MG PO (10:42)
--- NOTE | 2024-12-20 10:44 | CM ---
Patient seen at bedside
IA completed
CM consult completed Stroke/TIA
OBS status - form explained & signed. In chart
Dx: TIA vs CVA
PMH: psoriasis
Patient lives with in a multi-story home, 1 step to enter, flight of stairs to bedroom/bathroom, powder room on 1st floor
PLOF: independent, working
Denies DME
Has had [facility] in past/ouptatient cardiac rehab in past
PT/OT/ST to eval
PCP: Farideh Head
Pharmacy: [facility]
PLAN: TBD, follow hospital progression, CM to follow for needs
[2024-12-20 11:11] LABS: VerifyNow Aspirin 488 ARU
[2024-12-20 11:12] LABS: VerifyNow PRU 181 PRU (180-376)
[2024-12-20 11:43] LABS: Glycohemoglobin (HgbA1c) 5.4 % (4.0-5.6)
--- NOTE | 2024-12-20 12:03 | W.PN.HOSP.TC ---
Today's Communication/Plan
-
see A/P
Assessment / Plan
Assessment / Plan
HPI: 59-year-old gentleman with past medical history significant for psoriasis who presented to the emergency department secondary to word finding issues and difficulty moving his left arm. He was also complaining of visual field deficit in the left
lower quadrant of both eyes.
On arrival to the emergency department his NIH score was 3. ED physician called a stroke alert and reached out to [place] [facility]. By the time he spoke to them, the patient's symptoms had much improved.
The patient still c/o persistent visual field deficits and left arm sensation deficits/LUE ataxia, not at baseline though improved from when he first arrived. He is not on blood thinners.
A/P:
# Concern for acute CVA, Stroke alert called
ED provider discussed the patient with [facility] who recommended to load the patient with Plavix and continue aspirin, they did not recommend acute intervention at this time.
The patient took 4 baby aspirin SENSITIZED PAPER TESTER
s/p Plavix 225 mg,
Cont baby aspirin, note Neuro added Brilinta [address] head: No acute intracranial abnormality.
Follow CT head angio
Follow MRI brain
Neurology on board, [facility] FISH
Card consulted for FISH, planned for 12/21
A1C 5.4%
LDL at 6
Cont SENSITIZED PAPER TESTER Lipitor 20 mg
# Hx of NSTEMI s/p CABG
# HLD
LDL at 6
Cont SENSITIZED PAPER TESTER Lipitor 20 mg
DVT prophylaxis-SCDs
Full code
DW at bedside
Anticipated Discharge: 24 - 48 hours
Subjective/Interval History
-
Date of Service: December 20, 2024
Objective Data
-
Labs:
Laboratory Results
12/20/24
00:49
WBC 5.6
Hgb 12.7 L
Hct 36.3 L
Plt Count 175
PT 15.7 H
INR 1.22
APTT 30.9
Sodium 137
Potassium 4.3
Chloride 106
Carbon Dioxide 26
BUN 18
Creatinine 0.9
Glucose 111 H
Calcium 9.1
Total Bilirubin 0.4
AST 30
ALT 27
Alkaline Phosphatase 73
Vital Signs:
Vital Signs
Temp Pulse Resp BP Pulse Ox
36.6 C 68 18 152/91 96
12/20/24 11:00 12/20/24 11:00 12/20/24 11:00 12/20/24 11:00 12/20/24 11:00
Review of Systems
-
History Source: Patient
EENT: Reports Other (visual deficit)
Neuro: Reports Other (L arm clumsiness)
Physical Exam
-
General: Well Developed, Well Nourished, No Apparent Distress, Comfortable and Conversant
HEENT: Normocephalic and Atraumatic
Respiratory: Clear to Auscultation and Non Labored Respirations; Negative Wheezes or Accessory Resp Muscle Use
Cardiac: Regular Rhythm and S1/S2
GI: Soft and Nontender
Musculoskeletal: No Edema
Skin: Warm and Dry; Negative Rash
Neuro: Awake, Alert and AO x 3
Psych: Calm and Intact Judgement/Insight
Data Reviewed
-
CT Scan: Report Reviewed by me
Labs: Labs Reviewed by me
--- NOTE | 2024-12-20 14:45 | CON.CAR ---
Addendum entered and electronically signed by Lizet Landry DO 12/21/24 04:31:
I saw and examined the patient.
The Shirt Turner's note was reviewed and I agree with the note.
Comment: Patient was seen and examined on 1 acute with at bedside on 12/20/2024; late entry. 59-year-old male with past medical history significant for NSTEMI (06/11/24; peak CTNI 12.6) s/p CABG [BERTRAND to LAD proper, Ao to RSVG to large diagonal,
Ao to left radial to both branches of OM, Ao to RSVG to RPDA and GREG exclusion with #40mm] 06/15/24, Hypertension, hyperlipidemia, and psoriasis who presented to [facility] on 12/20/2024 secondary to acute word finding issues, difficulty moving his left
arm/Paresthesias and visual field deficit in the left lower quadrant of both eyes. Neurologic workup found right frontal, parietal, occipital lobe acute infarcts on MRI with possible small cortical right occipital lobe petechial hemorrhage. CTA
head and neck with no significant stenosis, aneurysm or occlusion with mild to moderate bilateral proximal ICA plaque right slightly greater than left not estimated above 50%. Carotid duplex as part of preoperative evaluation prior to bypass on
06/13/2024 noted calcified plaque bilaterally with less than 50% ICA stenosis and normal antegrade vertebral flow. At present his neurologic his neurologic symptoms have persisted, particularly visual complaints although left arm weakness has
improved. He denies chest pain or pressure, shortness of breath or palpitations. He has no headaches. Cardiology was consulted for workup of cardioembolic source.
.
Patient has done well following his admission in May for NSTEMI status post CABG. He completed cardiac rehab. He is compliant with his medications including uninterrupted aspirin and Plavix. He is also on Repatha and atorvastatin for his
cholesterol with last dose of Repatha being on Thursday. He has had no chest pain or pressure, shortness of breath or palpitations. He has no history of atrial fibrillation. Review of chart from admission 06/11-06/18 without reported postop atrial
fibrillation. He is currently in sinus rhythm with twelve-lead EKG on 12/20/2024 normal sinus rhythm and a normal EKG with normal intervals. Telemetry so far has been normal sinus rhythm. 2D echocardiogram 12/20/2024 was reviewed with patient and
at bedside: Normal biventricular size and systolic function with no regional wall motion abnormalities and EF by Martinez's 55-60% and normal diastolic function. He has aortic sclerosis without stenosis and trace AI with normal aortic root and
proximal ascending aorta dimensions. Mild mitral and tricuspid regurgitation. Estimated pulmonary artery pressure 34 mmHg. There is plaque seen in the aortic root and descending aorta. Also reviewed prior transthoracic echocardiogram 06/13/2024
and intraoperative transesophageal echocardiogram 06/15/2024. Intraoperative FISH initially found no left atrial appendage thrombus and the left atrial appendage was no longer visible at the completion of surgery with color-flow Doppler confirming
absence of flow.
General: No acute distress, AAOX3
Neck: Negative JVD
Heart: Regular, positive S1/S2, No murmur. Midline incision well healed
Lungs: CTA b/l, negative wheezes/rales/rhonchi
Abd: Positive BS, NT/ND, neg rebound/rigidity/guarding
Ext: No edema
Plan:
Acute CVA in the right frontal, parietal and occipital lobes on brain MRI 12/20/2024
-Neurology consulted and directing care
-Carotid duplex 06/13/2024 and head and neck CTA 12/20/2024 with mild to moderate ICA plaque but no hemodynamically significant stenosis.
-Twelve-lead EKG normal sinus rhythm and a normal tracing; sinus rhythm on telemetry. Patient has no documented history of atrial fibrillation
-At the time of bypass surgery he did undergo left atrial appendage exclusion which was confirmed successful by transesophageal echocardiogram.
-Will plan for transesophageal echocardiogram on 12/21/2024 and if unrevealing, plan for ILR implant. Discussed procedural details, showed pictures of Linq, reviewed risks and benefits and answered all questions. Patient is agreeable to proceed. No
contraindications. Communicated plan to procedural colleagues.
-N.p.o. after midnight
-Defer antiplatelet therapy to neurology. Outpatient clopidogrel was changed to Brilinta.
Dyslipidemia
-Marked improvement in lipid profile on Repatha and atorvastatin 20 mg daily. Total cholesterol now 76, LDL 6, HDL 49, triglycerides 108. Lipid profile at time of heart attack 06/12/2024: Total cholesterol 282, triglycerides 237, LDL 165, HDL 70
-Will continue Repatha; last dose was 12/17/2024
-Will reduce atorvastatin to 10 mg daily and consider discontinuation in the future as an outpatient.
History of coronary artery disease status post recent non-STEMI 06/11/2024 followed by uncomplicated CABG 06/15/2024
-No symptoms suggestive of angina
-Has been on uninterrupted aspirin and Plavix
-Twelve-lead EKG normal sinus rhythm and a normal tracing
-Patient's hemoglobin A1c at the time of his heart attack and today is in nondiabetic range
Hypertension
-Permissive hypertension following stroke with eventual goal for normotension
Plan reviewed with nursing. Discussed care plan with hospitalist, neurology and provided update to CT surgery
Original Note:
Consultation
Consultation Request
Date/Time Consultation Requested: 12/20/24
Date/Time Consultation Performed: 12/20/24
Requesting Provider: Dr. Carrillo
Performing Provider: Dr. Landry
Reason for Consultation: CVA, evaluation for FISH
Medical History
-
History of Present Illness:
Patient came to [facility] ER just after midnight this morning with complaints of dysarthria and aphasia, cardiology is now consulted for CVA and consideration for FISH. Talked with patient, , daughter and son in room. Patient went to bed feeling
fine and 30 minutes later awoke with the presenting symptoms. He came to [facility] ER and urgent CT was negative and all symptoms are resolving with an NIH score of 0. Patient was admitted and then had MRI of brain that showed acute right frontal,
parietal and occipital lobe infarcts consistent with acute CVA. Patient has been SR since admission. Patient is known to cardiology locally for recent NSTEMI and CABG admission 07/12/2023 until 06/18/2024.
PMH:
Recent admission for NSTEMI and CABG 06/11/24 until 06/18/24
CAD s/p CABG 06/15/24
BERTRAND to LAD proper, Ao to RSVG to large diagonal, Ao to left radial to both branches of OM, Ao to RSVG to RPDA 06/15/24
s/p GREG exclusion 06/15/24
GREG no longer visible with color-flow Doppler confirming absence of flow by postop FISH 06/15/2024
B/L ICA less than 50% by carotid U/S 06/13/24
HTN
Mixed hyperlipidemia
Past Medical History
Past Medical History: Other (See HPI)
Past Surgical History: Cardiac (CABG 06/15/24) and Orthopedic
Social History
Tobacco: Former Smoker (Quit approximately 15 years ago. 1 PPD for 30 years)
Alcohol: Other (4-6 beers dailyused to drink 5-6 beers a day and now only occasionally, less than once a week)
Drug: None
Personal:
Living: With Family
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
Family History
Family History: Adopted
Allergies / Home Medications
Allergy/AdvReac Type Severity Reaction Status Date / Time
No Known Allergies Allergy Verified 12/20/24 00:37
�Medication �Instructions �Recorded �Confirmed �Type
aspirin 81 mg chewable tablet 81 mg PO DAILY Heart 06/18/24 12/20/24 Rx
disease/condition #0 tabs
clopidogrel 75 mg tablet 75 mg PO DAILY Heart 06/18/24 12/20/24 Rx
disease/condition #30 tabs
metoprolol succinate 25 mg 12.5 mg (1/2 x 25 mg) PO DAILY 06/18/24 12/20/24 Rx
tablet,extended release 24 hr Heart disease/condition #30 tabs
pantoprazole 40 mg tablet,delayed 40 mg PO DAILY GI prophylaxis 06/18/24 12/20/24 Rx
release while on Plavix #30 tabs
atorvastatin 20 mg tablet 20 mg PO HS 12/20/24 12/20/24 History
evolocumab 140 mg/mL subcutaneous 140 mg SC Q2W 12/20/24 12/20/24 History
syringe (Repatha Syringe)
Review of Systems
-
History Source: Patient and Family ()
All other systems: Negative unless noted
Physical Exam
Vital Signs
Temp Pulse Resp BP Pulse Ox
98 F 68 18 152/91 96
12/20/24 11:00 12/20/24 11:00 12/20/24 11:00 12/20/24 11:00 12/20/24 11:00
GEN: AAOx3
HEENT: MMM
LUNGS: No audible wheeze
CV: SR on tele
EXT: No edema
NEURO: Gross non-focal
SKIN: No rash
Lab Results
12/20/24 00:49
12/20/24 00:49
Troponin I < 0.012 ng/ml 12/20/24 00:49
Impression / Plan
-
PCP: Dr. Jericho Fletcher DO
Cardiology: Dr. Migel Muñoz at [place]
Impression:
Admitted with stoke symptoms 12/20/24 early AM
Acute right frontal, parietal, and occipital lobes infarcts consistent with acute CVA
Small focus of blooming artifact along the cortical right occipital lobe which may represent petechial hemorrhage by MRI 12/20/24
Recent admission for NSTEMI and CABG 06/11/24 until 06/18/24
CAD s/p CABG 06/15/24
BERTRAND to LAD proper, Ao to RSVG to large diagonal, Ao to left radial to both branches of OM, Ao to RSVG to RPDA 06/15/24
s/p GREG exclusion 06/15/24
GREG no longer visible with color-flow Doppler confirming absence of flow by postop FISH 06/15/2024
B/L ICA less than 50% by carotid U/S 06/13/24
HTN
Mixed hyperlipidemia
Echo 06/13/24: EF 55% with no significant valve disease.
Echo 12/20/2024: EF 55 to 60%, normal diastolic function, normal RV size and function, mild MR, trace aortic regurgitation, mild TR, plaque seen in the aortic root and ascending aorta
Plan:
-Patient came to [facility] ER just after midnight this morning with complaints of dysarthria and aphasia, cardiology is now consulted for CVA and consideration for FISH. Talked with patient, , daughter and son in room. Patient went to bed feeling
fine and 30 minutes later awoke with the presenting symptoms. He came to [facility] ER and urgent CT was negative and all symptoms are resolving with an NIH score of 0. Patient was admitted and then had MRI of brain that showed acute right frontal,
parietal and occipital lobe infarcts consistent with acute CVA. Patient has been SR since admission. Patient is known to cardiology locally for recent NSTEMI and CABG admission 07/12/2023 until 06/18/2024.
-ECG and telemetry reviewed by me, patient has been SR without evidence of atrial arrhythmia
-Reviewed possible etiologies for stroke including cardioembolic vs aortic atherosclerotic disease vs carotid disease.
-Head and neck CTA is pending, but patient had B/L ICA stenosis less than 50% by carotid U/S on 06/13/2024 as part of his workup for CABG
-We reviewed evidence of aortic atherosclerosis. Patient was recently changed from high-dose atorvastatin to atorvastatin 20 mg daily plus Repatha and calculated LDL this admission was 6.
-We reviewed plan for FISH and possible Linq monitor in the a.m. We reviewed what a FISH and a Linq monitor would do for the patient and what results we may encounter. Patient and family agreeable to plan.
-Patient had GREG exclusion 06/15/2024 and there was no visible color-flow Doppler confirming absence of flow on the postop IntraOp FISH 06/15/2024
-Will move patient to IVU in anticipation of procedures tomorrow, coordinated by me
[2024-12-20] MEDS: BRILINTA 90 MG PO (19:52)
[2024-12-20] MEDS: LIPITOR 20 MG PO (22:59)
--- NOTE | 2024-12-20 23:42 | PTCARENOTE ---
Patient received as transfer from [facility]. AOx3. Pupils equal, round, reactive, and brisk. NIH score of two for left vision deficit and left upper extremity altered sensation. Reports that symptoms have improved. The patient does appear somewhat
anxious, stroke depression screen negative. SR on telemetry. Oxygen saturation 96-99% on room air. Discussed NPO status at midnight for FISH tomorrow. Denies pain. Denies headache. Denies feeling lightheaded or dizzy. Standby assist for ambulation
but independent with care such as toileting and oral care. New left arm PIV 20G inserted and previous RAC and LAC PIVs removed as they were both prehospital. Plan of care discussed. Call iyer within reach. Care ongoing.
[2024-12-21] VITALS (8 sets, daily range): BP systolic 132–151; BP diastolic 77–94; PULSE 63; O2SAT 100
--- NOTE | 2024-12-21 07:29 | W.PN.VS ---
Today's Communication / Plan
-
carotid duplex
Assessment/Plan
-
CVA
- mild carotid stenosis by cta
looks to be no greater than 50% on right
likely not symptomatic carotid
check carotid duplex to confirm velocities are not elevated
Subjective Data
-
Date of Service: December 21, 2024
asked to see patient who had left arm weakness
lasted about 24 hours
sxs improved this am
ct with right hemispheric multiple lesions
cta 50% kandy stenosis with calcified plaque
Objective Data
-
Vital Signs
Temp Pulse Resp BP Pulse Ox
98.1 F 56 20 132/81 96
12/21/24 07:07 12/21/24 06:00 12/21/24 07:07 12/21/24 03:03 12/21/24 07:07
Intake and Output
12/20/24 12/21/24 12/22/24
06:59 06:59 06:59
Other:
Number of approximated MODERATE 1
amounts of urine
Lab Results
12/20/24 00:49
12/20/24 00:49
Calcium 9.1 mg/dl (8.4-10.2) 12/20/24 00:49
Total Bilirubin 0.4 mg/dl (0.2-1.3) 12/20/24 00:49
AST 30 U/L (17-59) 12/20/24 00:49
ALT 27 U/L (0-50) 12/20/24 00:49
Alkaline Phosphatase 73 U/L (38-126) 12/20/24 00:49
Total Protein 6.0 g/dl (6.3-8.2) L 12/20/24 00:49
Albumin 3.8 g/dl (3.5-5.0) 12/20/24 00:49
Physical Exam
-
rrr
ctab
2+ right radial, no left radial
2+ DP bilat
strength = bilat
--- NOTE | 2024-12-21 07:37 | CON.VAS ---
Addendum entered and electronically signed by JEFF Gay 12/21/24 08:38:
Carotid ultrasound unremarkable, we will sign off
Original Note:
Consultation
Consultation Request
Date/Time Consultation Performed: 12/21/24 7am
Performing Provider: Rene
Reason for Consultation: Carotid stenosis
Medical History
-
Chief Complaint: Word finding difficulties and left arm weakness
History of Present Illness:
51-year-old male with past medical history significant for psoriasis, hypercholesterolemia, [place], and CABG presented to the emergency department on 12/20/2024 with word finding difficulties and weakness to the left arm. Symptoms last about 24 hours.
Improved this morning. Denies history of similar events.
CT head: No acute intracranial abnormality.
CTA head and neck: Mild to moderate bilateral proximal internal carotid atherosclerotic plaque, right side slightly greater than left. Proximal left internal carotid atherosclerotic plaque results in a nonhemodynamically significant stenosis of less
than 50%. Proximal right internal carotid atherosclerotic plaque is eccentric with cross sectional area stenosis calculated multiple times, percent stenosis greatest at approximately 47-48%. Due to the degree of eccentric appearance of the proximal
right internal carotid atherosclerotic plaque, stenosis of greater than 50% cannot be excluded. Suggest ultrasound for more additional evaluation.
MRI brain: There is restricted diffusion within the right frontal, parietal, and occipital lobes consistent with acute infarction. There is a small focus of blooming artifact along the cortical right occipital lobe which may represent petechial
hemorrhage (HI1).
Past Medical History
Past Medical History: Hypercholesterolemia, [place] and Other (Psoriasis)
Past Surgical History: Cardiac (CABG) and Orthopedic
Social History
Tobacco: Former Smoker
Alcohol: Daily
Personal:
Living: With Family
Employment: Employed
Family History
Family History: Other (Adopted)
Allergies / Home Medications
Allergy/AdvReac Type Severity Reaction Status Date / Time
No Known Allergies Allergy Verified 12/20/24 00:37
�Medication �Instructions �Recorded �Confirmed �Type
aspirin 81 mg chewable tablet 81 mg PO DAILY Heart 06/18/24 12/20/24 Rx
disease/condition #0 tabs
clopidogrel 75 mg tablet 75 mg PO DAILY Heart 06/18/24 12/20/24 Rx
disease/condition #30 tabs
metoprolol succinate 25 mg 12.5 mg (1/2 x 25 mg) PO DAILY 06/18/24 12/20/24 Rx
tablet,extended release 24 hr Heart disease/condition #30 tabs
pantoprazole 40 mg tablet,delayed 40 mg PO DAILY GI prophylaxis 06/18/24 12/20/24 Rx
release while on Plavix #30 tabs
atorvastatin 20 mg tablet 20 mg PO HS 12/20/24 12/20/24 History
evolocumab 140 mg/mL subcutaneous 140 mg SC Q2W 12/20/24 12/20/24 History
syringe (Repatha Syringe)
Review of Systems
-
History Source: Patient
All other systems: Negative unless noted
Neurological: Reports Weakness
Physical Exam
Vital Signs
Temp Pulse Resp BP Pulse Ox
98.1 F 56 20 132/81 96
12/21/24 07:07 12/21/24 06:00 12/21/24 07:07 12/21/24 03:03 12/21/24 07:07
Lab Results
12/20/24 00:49
12/20/24 00:49
Troponin I < 0.012 ng/ml 12/20/24 00:49
Physical Exam
General: No Apparent Distress
HEENT: Normocephalic and Atraumatic
Respiratory: Non Labored Respirations
Cardiac: Negative JVD
GI: Soft and Non Tender
Musculoskeletal: No Clubbing
Skin: Warm
Neuro: Awake, Alert and Oriented
Psych: Calm
Assessment / Plan
-
59-year-old male here with word finding difficulties, left arm weakness now mostly resolved
CVA by MRI
Mild carotid artery stenosis by CTA-likely not symptomatic
Plan:
Carotid ultrasound pending
Data Reviewed
-
CT Scan: Discussed with Patient
Medical Tests (Nuc Med, Echo etc): Discussed with Patient
Labs: Labs Reviewed by me
--- NOTE | 2024-12-21 07:51 | W.PN.HOSP.TC ---
Today's Communication/Plan
-
see A/P
Assessment / Plan
Assessment / Plan
HPI: 59-year-old gentleman with past medical history significant for psoriasis who presented to the emergency department secondary to word finding issues and difficulty moving his left arm. He was also complaining of visual field deficit in the left
lower quadrant of both eyes.
On arrival to the emergency department his NIH score was 3. ED physician called a stroke alert and reached out to [facility]. By the time he spoke to them, the patient's symptoms had much improved.
The patient still c/o persistent visual field deficits and left arm sensation deficits/LUE ataxia, not at baseline though improved from when he first arrived. He is not on blood thinners.
A/P:
# Concern for acute CVA, Stroke alert called
ED provider discussed the patient with [facility] who recommended to load the patient with Plavix and continue aspirin, they did not recommend acute intervention at this time.
The patient took 4 baby aspirin SAP ADMINISTRATOR
s/p Plavix 225 mg,
Cont baby aspirin, Brilinta 90 mg BID per Neuro
CT head: No acute intracranial abnormality.
MRI brain showed restricted diffusion within the right frontal, parietal, and occipital lobes consistent with acute infarction. There is a small focus of blooming artifact along the cortical right occipital lobe which may represent petechial
hemorrhage.
CT head/neck angio noted Mild to moderate bilateral proximal internal carotid atherosclerotic plaque, right side slightly greater than left. Proximal left internal carotid atherosclerotic plaque results in a nonhemodynamically significant stenosis
of less than 50%. Proximal right internal carotid atherosclerotic plaque is eccentric with cross sectional area stenosis calculated multiple times, percent stenosis greatest at approximately 47-48%. Due to the degree of eccentric appearance of the
proximal right internal carotid atherosclerotic plaque, stenosis of greater than 50% cannot be excluded.
Check carotid US.
Vascular consulted for the BL internal carotid stenoses
For FISH today
Of note, A1C 5.4%, LDL at 6, cont SAP ADMINISTRATOR Lipitor, adjusted to 10 mg
# Hx of NSTEMI s/p CABG
# HLD
LDL at 6
Cont SAP ADMINISTRATOR Lipitor 10 mg
DVT prophylaxis-SCDs
Full code
DW at bedside
Anticipated Discharge: 24 - 48 hours
Subjective/Interval History
-
Date of Service: December 21, 2024
Objective Data
-
Vital Signs:
Vital Signs
Temp Pulse Resp BP Pulse Ox
36.7 C 56 20 132/81 96
12/21/24 07:07 12/21/24 06:00 12/21/24 07:07 12/21/24 03:03 12/21/24 07:07
Review of Systems
-
History Source: Patient
EENT: Reports Other (visual deficit with depth perception )
Neuro: Reports Other (L arm numbness slightly better )
Physical Exam
-
General: Well Developed, Well Nourished, No Apparent Distress, Comfortable and Conversant
HEENT: Normocephalic and Atraumatic
Respiratory: Clear to Auscultation and Non Labored Respirations; Negative Wheezes or Accessory Resp Muscle Use
Cardiac: Regular Rhythm and S1/S2
GI: Soft and Nontender
Musculoskeletal: No Edema
Skin: Warm and Dry; Negative Rash
Neuro: Awake, Alert and AO x 3
Psych: Calm and Intact Judgement/Insight
Data Reviewed
-
CT Scan: Report Reviewed by me, Discussed with Patient and Discussed with Family
MRI: Report Reviewed by me, Discussed with Patient and Discussed with Family
Labs: Labs Reviewed by me
[2024-12-21] MEDS: TOPROL XL 12.5 MG PO ×2 (08:00→20:02)
[2024-12-21] MEDS: BRILINTA 90 MG PO ×2 (08:00→20:02)
[2024-12-21] MEDS: LOW STRENGTH ASPIRIN 81 MG PO (08:00)
[2024-12-21] MEDS: PROTONIX 40 MG PO (08:00)
--- NOTE | 2024-12-21 09:27 | W.PN.NEURO.1 ---
Today's Communication / Plan
-
Would pursue FISH and implantable hospital monitor if acceptable to cardiology
changed aspirin and clopidogrel, switched to ticagrelor 90 mg BID
current LDL 6, patient is on atorvastatin and evolocumab; atorvastatin lowered from 20 to 10 mg
will need hypercoagulable workup as outpatient 6 weeks after onset of symptoms
Rehabilitation evaluations and treatment
Appreciate vascular surgery evaluation as well as cardiology evaluations
Neuro Assessment/Plan
Assessment
The patient is a 59-year-old right-handed male with past medical history significant for psoriasis, NSTEMI (06/11/24) s/p CABG (06/2024) who presented to [facility] on 12/20/2024 secondary to word finding issues and difficulty moving his left arm.
Head CT: no acute intracranial abnormality
CT perfusion: no focal perfusion abnormalities
Head and neck CTA: no significant stenosis, aneurysm or occlusion.
Labs: Cholesterol 76, LDL 6, Hgb A1C pending
Echocardiogram:
Normal biventricular size and systolic function without regional wall motion
abnormality.
Study also reported grade 3-4
atheromatous disease in the aortic arch and descending thoracic aorta.
Impression: abrupt onset of left upper extremity sensory changes and left hemianopsia due to acute ischemic stroke; at this time idiopathic
Plan
Would pursue FISH and implantable hospital monitor if acceptable to cardiology
changed aspirin and clopidogrel, switched to ticagrelor 90 mg BID
current LDL 6, patient is on atorvastatin and evolocumab; atorvastatin lowered from 20 to 10 mg
will need hypercoagulable workup as outpatient 6 weeks after onset of symptoms
Rehabilitation evaluations and treatment
Appreciate vascular surgery evaluation as well as cardiology evaluations
Will follow peripherally
Subjective/Objective
Subjective Data
Date of Service: December 21, 2024
Objective Data
Vital Signs
Temp Pulse Resp BP Pulse Ox
36.7 C 61 20 151/86 96
12/21/24 07:07 12/21/24 08:00 12/21/24 07:07 12/21/24 08:00 12/21/24 07:07
Lab Results
12/20/24 00:49
12/20/24 00:49
PT 15.7 Sec (11.4-14.6) H 12/20/24 00:49
INR 1.22 12/20/24 00:49
APTT 30.9 Sec (23.4-35.0) 12/20/24 00:49
Sodium 137 mmol/L (135-145) 12/20/24 00:49
Potassium 4.3 mmol/L (3.5-5.1) 12/20/24 00:49
BUN 18 mg/dl (9-20) 12/20/24 00:49
Glucose 111 mg/dl (70-99) H 12/20/24 00:49
Calcium 9.1 mg/dl (8.4-10.2) 12/20/24 00:49
LDL Cholesterol, Calc 6 mg/dl 12/20/24 06:04
Patient Allergies
No Known Allergies Allergy (Verified 12/20/24 00:37)
Data Reviewed
-
MRI Head: Report Reviewed and Image Reviewed
Carotid Ultrasound: Report Reviewed
Reviewed with: Physician, Nurse, Nurse Practioner and Family
Old Records: Summarized
Past History
Past History
ED Past Medical History: CVA (December 2024 leading to left homonymous hemianopsia) and Other (Psoriasis)
ED Past Surgical History: Cardiac (CABG) and Orthopedic
Social History
Tobacco: Non-smoker
Drug: None
Personal:
Living: with family
Family History
Family History: Other (Reviewed and noncontributory)
Medications
-
Medications:
Generic Name Dose Route Start Last Admin
Trade Name Freq PRN Reason Stop Dose Admin
Acetaminophen 650 mg 12/20/24 03:44
Acetaminophen 650 Mg Rectal Suppository RECTAL 01/17/25 03:43
Q4HPRN PRN
RICHARDSON, mild pain, or temp >100.4F
Acetaminophen 650 mg 12/20/24 03:44
Acetaminophen 325 Mg Tablet PO 01/17/25 03:43
Q4HPRN PRN
RICHARDSON, mild pain, or temp >100.4F
Aspirin 81 mg 12/20/24 08:00 12/21/24 08:00
Aspirin 81 Mg Chewable Tablet PO 01/17/25 07:59 81 mg
DAILY ADITYA Administration
Atorvastatin Calcium 10 mg 12/21/24 22:00
Atorvastatin (Lipitor) 10 Mg Tablet PO 01/17/25 21:59
HS ADITYA
Metoprolol Succinate 12.5 mg 12/20/24 08:00 12/21/24 08:00
Metoprolol 12.5 Mg Extended Release Dose (1/2 Of 25 Mg Xl Tablet) PO 01/17/25 07:59 12.5 mg
BID ADITYA Administration
Pantoprazole Sodium 40 mg 12/20/24 08:00 12/21/24 08:00
Pantoprazole 40 Mg Delayed Release Tablet PO 01/17/25 07:59 40 mg
DAILY ADITYA Administration
Sodium Chloride 0 flush 12/20/24 04:00
Sodium Chloride 0.9% (Flush) Syringe IV 01/17/25 03:59
PER PROTOCOL ADITYA
Ticagrelor 90 mg 12/20/24 20:00 12/21/24 08:00
Ticagrelor (Brilinta) 90 Mg Tablet PO 01/17/25 19:59 90 mg
BID ADITYA Administration
--- NOTE | 2024-12-21 10:40 | ITS.CL.IMPLP ---
Capacity Planning Analyst - Implant Loop
Implant Loop
Procedure Report:
Primary Physician: Dr Jericho Fletcher
Primary Project Associate: Dr Migel Muñoz
Procedure Date: 12/21/2024
Procedure: Placement of a loop recorder.
History/Indication:
1. See office H&P for complete history.
2. Patient is a pleasant 59-year-old male with a past medical history significant for CAD status post CABG and GREG exclusion on 06/15/2024, hypertension, hyperlipidemia, psoriasis, who presented with stroke symptoms found to have multiple strokes
concerning for cardioembolic source. Patient underwent FISH which identified no cardioembolic source. Patient has no prior documented atrial arrhythmia. In the setting of patient's cryptogenic/stroke of unknown etiology and need for longitudinal
surveillance for possible atrial arrhythmia, patient to undergo ILR implant. The risks and benefits of the procedure were explained to the patient in full, and in simple terms by the cardiology service as well as by Dr. Lewis. Additionally, I
discussed procedure including benefits and the risks of the procedure include, but are not limited to: pain, bleeding, 0.7% risk of ILR erosion requiring device removal, 0.4% risk for device migration requiring removal or repositioning, 0.7% risk of
infection requiring removal, perforation of vessels or heart, pericardial effusion, unstable heart rhythm, and . All questions were answered, and the patient voices understanding.
Method:
After informed consent was obtained, the patient was brought to the EP laboratory holding area in a fasting, non-sedated state. The left chest was prepared and draped in a sterile fashion. A 'time out' was called. Local anesthesia was injected in
the subcutaneous tissue. The ILR was injected under the skin. Topical skin adhesive was applied. Following the procedure, the patient was taken to the recovery area in stable condition. No complications were noted.
Device Data:
[employer]ark; Model# LINQII; Serial# [id number]
Conclusion:
Successful placement of a loop recorder.
Recommendations:
- Return to patient room for continued care
- Follow-up will be arranged in the [facility] in 7-10 days for wound check.
- Routine ILR care.
Franco Quiroz DO, FACC, RS
Clinical Cardiac Emulsification Operator
cc: Dr Jericho Fletcher; Dr Migel Muñoz
--- NOTE | 2024-12-21 11:23 | PTCARENOTE ---
received patient this am sitting in bed, [facility] completed and documented. monitor shows NSR, VSS, carotid U/S completed at bedside. FISH completed. linq placed, dura lindsay, steri strips and dsg. D/I.
--- NOTE | 2024-12-21 12:33 | W.PN.CARDCBS ---
Addendum entered and electronically signed by Franco Quiroz DO 12/21/24 18:52:
I saw and examined the patient.
The Glaucoma Specialist's note was reviewed and I agree with the note.
Comment:
Exam/A&P as below
FISH without evidence of GREG thrombus; no documented AF
ILR implant today for longitudinal surveillance for AF in the setting of CVA
Telemetry monitoring, transition to rehab pending
ASA/Brilinta per neurology
Original Note:
Today's Communication / Plan
-
Trying to change Linq monitor notifications from our office to patient's primary vertical lathe operator at [place], Dr. Migel Muñoz
Possible [facility] rehab
Impression / Plan
-
PCP: Dr. Jericho Fletcher DO
Cardiology: Dr. Migel Muñoz at [place]
Impression:
Admitted with stoke symptoms 12/20/24 early AM
Acute right frontal, parietal, and occipital lobes infarcts consistent with acute CVA
Small focus of blooming artifact along the cortical right occipital lobe which may represent petechial hemorrhage by MRI 12/20/24
Recent admission for NSTEMI and CABG 06/11/24 until 06/18/24
CAD s/p CABG 06/15/24
BERTRAND to LAD proper, Ao to RSVG to large diagonal, Ao to left radial to both branches of OM, Ao to RSVG to RPDA 06/15/24
s/p GREG exclusion 06/15/24
GREG no longer visible with color-flow Doppler confirming absence of flow by postop FISH 06/15/2024
B/L ICA less than 50% by carotid U/S 06/13/24
HTN
Mixed hyperlipidemia
s/p [employer] Linq 12/21/24
Echo 06/13/24: EF 55% with no significant valve disease.
Echo 12/20/2024: EF 55 to 60%, normal diastolic function, normal RV size and function, mild MR, trace aortic regurgitation, mild TR, plaque seen in the aortic root and ascending aorta
FISH 12/21/2024: Report pending, but preliminarily no evidence of intracardiac thrombus
Plan:
-Patient had FISH 12/21/2024 and final report is pending, but preliminarily there is no evidence of intracardiac thrombus.
-Telemetry reviewed by me 12/21/2024 and no evidence of atrial arrhythmia
-Patient had [employer] Linq monitor placed on 12/21/2024. Patient follows primarily with Dr. Migel Muñoz at [place], so will try to change monitor notifications from our office (likely the default because we implanted the monitor) to Dr. Muñoz's
office
-Vascular surgery note reviewed by nd 12/21/2024 and they do not suspect that carotid disease played a role in CVA
-Patient has also been recommended hypercoagulable workup as an outpatient in 6 weeks
-Neurology recommended changing from Plavix to Brilinta. Outpatient dose of aspirin will be continued
-Outpatient dose of atorvastatin was decreased to 10 mg daily and usual dose of Repatha 140 mg SQ every 2 weeks should be continued upon D/C to home given NSTEMI and CABG.
-Patient being considered for [place] re[facility]
HPI: Patient came to [facility] ER just after midnight this morning with complaints of dysarthria and aphasia, cardiology is now consulted for CVA and consideration for FISH. Talked with patient, , daughter and son in room. Patient went to bed
feeling fine and 30 minutes later awoke with the presenting symptoms. He came to [facility] ER and urgent CT was negative and all symptoms are resolving with an NIH score of 0. Patient was admitted and then had MRI of brain that showed acute right
frontal, parietal and occipital lobe infarcts consistent with acute CVA. Patient has been SR since admission. Patient is known to cardiology locally for recent NSTEMI and CABG admission 07/12/2023 until 06/18/2024.
Progress Note - Material Liaison
Subjective
Date of Service: December 21, 2024
OOB working with PT, gait not back to baseline
Objective
Labs:
12/20/24 00:49
12/20/24 00:49
Labs
Hgb 12.7 g/dL (13.0-18.0) L 12/20/24 00:49
Hct 36.3 % (39.0-52.0) L 12/20/24 00:49
Plt Count 175 10^3/uL (130-400) 12/20/24 00:49
PT 15.7 Sec (11.4-14.6) H 12/20/24 00:49
INR 1.22 12/20/24 00:49
APTT 30.9 Sec (23.4-35.0) 12/20/24 00:49
Sodium 137 mmol/L (135-145) 12/20/24 00:49
Potassium 4.3 mmol/L (3.5-5.1) 12/20/24 00:49
BUN 18 mg/dl (9-20) 12/20/24 00:49
Creatinine 0.9 mg/dL (0.7-1.3) 12/20/24 00:49
Glucose 111 mg/dl (70-99) H 12/20/24 00:49
Troponins
12/20/24
00:49
Troponin I < 0.012
Vital Signs and I&O:
Vital Signs
Temp Pulse Resp BP Pulse Ox
98.1 F 61 20 144/77 97
12/21/24 11:12 12/21/24 11:10 12/21/24 11:12 12/21/24 11:10 12/21/24 08:30
Vital Signs
Temp Pulse Resp BP Pulse Ox
98.1 F 61 20 144/77 97
12/21/24 11:12 12/21/24 11:10 12/21/24 11:12 12/21/24 11:10 12/21/24 08:30
Physical Exam
Physical Exam
GEN: AAOx3
LUNGS: No audible wheeze
CV: SR on tele
--- NOTE | 2024-12-21 13:08 | CM ---
Addendum entered by Yamilet Mayer 12/21/24 15:16:
Report number for [facility] is ([phone]).
Addendum entered by Yamilet Mayer 12/21/24 15:06:
Spoke with [facility] Liaison who states she will have a bed tomorrow for Mr. Rachel. Telephone call to [facility] Case management to do the pre-cert. Approved acute rehab from 12/22/24 to 12/28/24 with NRD due on 12/28/24. The review telephone
number is ([phone]) The auth. number is [id number]. Updated Mr.. and Mrs. Rachel. Medical work-up in progress. The discharge plan is to go to [facility] at [place] when medically stable.
Original Note:
Reviewed chart. Mr. Rachel was transferred to IVU. Met with Mr. and Mrs. Rachel to review discharge plans. Prior to admission he resides with his spouse in a two story home with three steps to enter. He has a full flight of steps to get to
bedroom/full bathroom. He has a powder room on the first floor. Prior to admission he was independent with ambulation and adls. He does not have any DME in the home. He has a prescription plan and uses [facility] , but he is going to use [facility]armacy at [place] mail order. Telephone call to [facility],([phone]) His co-pay would be $24.64 a month. [email or web address] in [place] has it in stock. Also reviewed the medical team recommendations of acute rehab. He is agreeable to exploring acute
rehab. at [facility] at [place]. Telephone call to [facility]Liaison to make the referral. Sent the referral. Awaiting to hear back from [facility] at [place] if approved and bed available. Will need to pre-cert with his insurance.
Medical work-up in progress. The discharge plan is to go to [facility] at [place] if approved for admission and bed available and approved by insurance when medically stable.
[2024-12-21] MEDS: LIPITOR 10 MG PO (22:34)
--- NOTE | 2024-12-22 | PTCARENOTE ---
Tele monitor remains SR. Pt denies any pain or discomfort. NIH performed at bedside w/ day shift RN. Pt scored a 2 d/t left eye visual cut, and left arm 'slightly numb' per pt. Patient ambulating in room w/out difficulty. Denies any dizziness. Linq
monitor dressing intact. Aware of POC, call iyer in reach.
[2024-12-22 04:00] VITALS: BP 135/85
[2024-12-22 04:30] LABS: Hematocrit 39.0 % (39.0-52.0); Hemoglobin 13.5 g/dL (13.0-18.0); Mean Corp Hgb Conc. 34.6 g/dL (33.0-37.0); Mean Corpuscular Volume 92.0 fL (80.0-94.0); Platelet Count 182 10^3/uL (130-400); Red Cell Dist. Width 13.3 % (11.5-14.5)
[2024-12-22 04:59] LABS: Blood Urea Nitrogen 11 mg/dl (9-20); Calcium 9.4 mg/dl (8.4-10.2); Carbon Dioxide 24 mmol/L (22-30); Chloride 110 mmol/L (98-107); Estimated Creatinine Clearance 115 ml/min; Glucose 96 mg/dl (70-99); Potassium 3.9 mmol/L (3.5-5.1); Sodium 139 mmol/L (135-145); eGFR > 60.00
[2024-12-22 07:26] VITALS: BP 156/102
[2024-12-22 07:28] VITALS: BP 142/91
[2024-12-22] MEDS: TOPROL XL 12.5 MG PO (08:01)
[2024-12-22] MEDS: PROTONIX 40 MG PO (08:01)
[2024-12-22] MEDS: LOW STRENGTH ASPIRIN 81 MG PO (08:01)
[2024-12-22] MEDS: BRILINTA 90 MG PO (08:01)
--- NOTE | 2024-12-22 08:47 | CON.MD ---
Consultation - Medical
-
Referring Provider:
Chief Complaint: CVA
History of Present Illness: 59-year-old male with past medical history significant for psoriasis, hypercholesterolemia, [place], and CABG presented to the emergency department on 12/20/2024 with word finding difficulties and weakness to the left arm.
Symptoms last about 24 hours. Improved this morning. Denies history of similar events.
CT head: No acute intracranial abnormality.
CTA head and neck: Mild to moderate bilateral proximal internal carotid atherosclerotic plaque, right side slightly greater than left. Proximal left internal carotid atherosclerotic plaque results in a nonhemodynamically significant stenosis of less
than 50%. Proximal right internal carotid atherosclerotic plaque is eccentric with cross sectional area stenosis calculated multiple times, percent stenosis greatest at approximately 47-48%. Due to the degree of eccentric appearance of the proximal
right internal carotid atherosclerotic plaque, stenosis of greater than 50% cannot be excluded. Suggest ultrasound for more additional evaluation.
MRI brain: There is restricted diffusion within the right frontal, parietal, and occipital lobes consistent with acute infarction. There is a small focus of blooming artifact along the cortical right occipital lobe which may represent petechial
hemorrhage (HI1).
Neurology recommended FISH and implantable cardiac monitoring if acceptable to cardiology. Change clopidogrel to Brilinta 90 mg twice daily and on aspirin. Atorvastatin doses decreased to 10 mg. Would need hypercoagulable workup as outpatient 6
weeks after onset of symptoms.
Mild carotid artery stenosis by CTA-likely not symptomatic.
Echocardiogram: Normal biventricular size and systolic function without regional wall motion
abnormality. Study also reported grade 3-4 atheromatous disease in the aortic arch and descending thoracic aorta.
FISH without evidence of GREG thrombus; no documented AF. s/p Med[employer] Linq 12/21/24 for longitudinal surveillance for AF in the setting of CVA. Follow-up will be arranged in the [facility] in 7-10 days for wound check.
per cardio note: Neurology, CT surgery and cardiology locally and at [facility] have weighed in on patient's case and the consensus is that patient will cont with DAPT using aspirin and Brilinta. Linq monitor in place and if patient has atrial arrhythmia
then will transition to DOAC.
Past Medical History: psoriasis, hypercholesterolemia, [place], and CABG
Procedure History: Cardiac (CABG) and Orthopedic
Family History: (Adopted)
Social History:
Functional Level Premorbidly: Independent with all activities
Functional Level Currently: Transfer�supervision, bed mobility�supervision, ambulated 30 feet x 4 reps with min assist secondary to decreased safety approaching 2 or 14. Poor positioning within door frame likely hitting left shoulder unless
therapist correct. Patient affected patient unable to read text or use cell phone. Unable to identify items on tray
Tobacco:Former Smoker
Alcohol: Former ETOH
Drug use: Denies
Lives with: Spouse
24-hour assistance available: No. Spouse not available during the day to assist
Number of floors: Multilevel
# steps to enter: 1
# steps to second floor:FF
Potential First floor set up:
Driving: Yes
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 Spouse not available during the day to assist
Allergies:
Allergy/AdvReac Type Severity Reaction Status Date / Time
No Known Allergies Allergy Verified 12/20/24 00:37
Review of Systems:
Constitutional: (x) Normal _
Eye: (x) abNormal _visual field deficit, left
Ear/Nose/Throat: (x) Normal _
Respiratory: (x) Normal _
Cardiovascular: (x) Normal _
Gastrointestinal: (x) Normal _
Genitourinary: (x) Normal _
Musculoskeletal: (x) Normal _
Integumentary: (x) Normal _
Neurologic: (x) abNormal _CVA, tremors
Psychiatric: (x) Normal _
Endocrine: (x) Normal _
Hematologic/Lymphatic: (x) Normal _
Allergic/Immunologic: (x) Normal _
Medications:
Active Current Visit Medication List
Category Date Time Status
Acetaminophen [Tylenol/Feverall] Med 12/20/24 03:44 Active
650 mg RECTAL Q4HPRN PRN
Acetaminophen [Tylenol] Med 12/20/24 03:44 Active
650 mg PO Q4HPRN PRN
Aspirin Chewable [Low Strength Aspirin] Med 12/20/24 08:00 Active
81 mg PO DAILY
Atorvastatin [Lipitor] Med 12/21/24 22:00 Active
10 mg PO HS
Flush (0.9% Sodium Chloride) [Flush (Nss)] Med 12/20/24 04:00 Active
See Dose Instructions IV PER PROTOCOL
Metoprolol Xl [Toprol Xl] Med 12/20/24 08:00 Active
12.5 mg PO BID
Pantoprazole [Protonix] Med 12/20/24 08:00 Active
40 mg PO DAILY
Ticagrelor [Brilinta] Med 12/20/24 20:00 Active
90 mg PO BID
Vitals:
Temp Pulse Resp BP Pulse Ox
98.4 F 71 18 142/91 98
12/22/24 07:25 12/22/24 08:01 12/22/24 07:25 12/22/24 08:01 12/22/24 07:25
Height 5 ft 9 in
Actual Weight 75.1 kg
Body Mass Index (BMI) 24.5
Physical Exam:
General Appearance/Observation: Well-developed, well-nourished individual in no apparent distress.
Pain/Comfort Assessment: Denies
Mood/Affect: Appropriate
Integumentary/Operative Site:
Pressure Ulcer Evaluation: absent over heels.
Other Type of Wound: absent
Eyes: Conjunctiva/Lids: normal Pupils: pupils equal round and reactive to light and Accommodation
Ears/Nose/Throat: oral mucosa moist, throat clear. Lips/Teeth/Gums: normal
Neck: No muscle spasm or tenderness
Cardiovascular: Heart: regular, no murmur
Pulses: dorsalis pedis 2+ bilaterally
Respiratory: Respiratory Effort/Chest Expansion: normal Auscultation: Clear to auscultation bilaterally
Gastrointestinal: abdomen not tender, no distension, normal abdominal bowel sounds
Genitourinary: No Olivarez
Extremities: Edema: None Cyanosis: None Trophic changes: None
Neurology Exam:
Orientation: Alert, Oriented to self, Time, Place
Memory: Intact for immediate medical concerns
Comprehension: Intact
Two step command: Intact
Naming: Intact
Cranial Nerves:
CNII: Pupillary light reflex: Intact Visual Field: Left field impairment
CN III, IV, : Extraocular muscles: Decreased conversion of right eye
CN V: Facial Sensation at Forehead: Intact, Maxilla: Intact, Mandible: Intact
CN VII: Facial movement: Symmetric
CN VIII: Hearing: Normal
CN IX/X: Speech & swallow: Normal, Position of Uvula: Midline
CN XI: Shoulder shrug: Symmetric
CN XII: Tongue protrusion: Midline
Sensory:
Light touch: Intact in right upper and lower extremities. Diminished in the LUE
Reflexes:
Biceps: 2+ bilaterally
Brachioradialis: 2+ bilaterally
Triceps: 2+ bilaterally
Patellar: 2+ bilaterally
Achilles: 2+ bilaterally
Babinski: Down going bilaterally
Clonus: None
Belen: Negative bilaterally
Cerebellar: Dysmetria/Ataxia: mild Dysmetria on the left
Musculoskeletal:
Motor: (Manual muscle scale 0-5)
Muscle SA EF WE EE FF FA HF KE DF EHL PF
Right NT 5 5 5 5 5 5 5 5 5 5
Left NT 4+ 5 4+ 4+ 4+ 5 5 5 5 5
Tone: Normal in all extremities
Range of Motion: Passively within normal limits in all extremities
Lab Results:
Labs
WBC 6.5 10^3/uL (4.8-10.8) 12/22/24 04:08
RBC 4.24 10^6/uL (4.70-6.10) L 12/22/24 04:08
Hgb 13.5 g/dL (13.0-18.0) 12/22/24 04:08
Hct 39.0 % (39.0-52.0) 12/22/24 04:08
MCV 92.0 fL (80.0-94.0) 12/22/24 04:08
MCH 31.8 pg (27.0-31.0) H 12/22/24 04:08
MCHC 34.6 g/dL (33.0-37.0) 12/22/24 04:08
RDW 13.3 % (11.5-14.5) 12/22/24 04:08
Plt Count 182 10^3/uL (130-400) 12/22/24 04:08
MPV 9.5 fL (7.4-10.4) 12/22/24 04:08
Abs Immat Gran (auto) 0.0 10^3/uL (0-0.05) 12/20/24 00:49
Absolute Neuts (auto) 2.8 10^3/uL (1.4-6.5) 12/20/24 00:49
Absolute Lymphs (auto) 2.0 10^3/uL (1.2-3.4) 12/20/24 00:49
Absolute Monos (auto) 0.6 10^3/uL (0.1-0.6) 12/20/24 00:49
Absolute Eos (auto) 0.2 10^3/uL (0-0.7) 12/20/24 00:49
Absolute Basos (auto) 0.1 10^3/uL (0-0.2) 12/20/24 00:49
Immature Gran % 0.4 % (0-0.5) 12/20/24 00:49
Neutrophils % 50.1 % (42.2-75.2) 12/20/24 00:49
Lymphocytes % 34.8 % (20.5-51.1) 12/20/24 00:49
Monocytes % 10.8 % (1.7-9.3) H 12/20/24 00:49
Eosinophils % 3.0 % (0-6) 12/20/24 00:49
Basophils % 0.9 % (0-2) 12/20/24 00:49
Nucleated RBC % 0 % (-) 12/20/24 00:49
PT 15.7 Sec (11.4-14.6) H 12/20/24 00:49
INR 1.22 12/20/24 00:49
APTT 30.9 Sec (23.4-35.0) 12/20/24 00:49
Plt Function - Aspirin 488 ARU 12/20/24 10:01
Plt P2Y12 React Units 181 PRU (180-376) 12/20/24 10:01
Sodium 139 mmol/L (135-145) 12/22/24 04:08
Potassium 3.9 mmol/L (3.5-5.1) 12/22/24 04:08
Chloride 110 mmol/L (98-107) H 12/22/24 04:08
Carbon Dioxide 24 mmol/L (22-30) 12/22/24 04:08
BUN 11 mg/dl (9-20) 12/22/24 04:08
Creatinine 0.7 mg/dL (0.7-1.3) 12/22/24 04:08
Estimated Creat Clear 115 ml/min 12/22/24 04:08
eGFR > 60.00 12/22/24 04:08
Glucose 96 mg/dl (70-99) 12/22/24 04:08
Hemoglobin A1c 5.4 % (4.0-5.6) 12/20/24 00:49
Calcium 9.4 mg/dl (8.4-10.2) 12/22/24 04:08
Total Bilirubin 0.4 mg/dl (0.2-1.3) 12/20/24 00:49
AST 30 U/L (17-59) 12/20/24 00:49
ALT 27 U/L (0-50) 12/20/24 00:49
Alkaline Phosphatase 73 U/L (38-126) 12/20/24 00:49
Troponin I < 0.012 ng/ml 12/20/24 00:49
Total Protein 6.0 g/dl (6.3-8.2) L 12/20/24 00:49
Albumin 3.8 g/dl (3.5-5.0) 12/20/24 00:49
Triglycerides 108 mg/dl (10-149) 12/20/24 06:04
Total Cholesterol 76 mg/dl (50-199) 12/20/24 06:04
LDL Cholesterol, Calc 6 mg/dl 12/20/24 06:04
VLDL Cholesterol, Calc 21 mg/dl (0-30) 12/20/24 06:04
HDL Cholesterol 49 mg/dl 12/20/24 06:04
Urine Color Yellow 12/20/24 04:04
Urine Clarity Clear (Clear) 12/20/24 04:04
Urine pH 6.5 (5.0-9.0) 12/20/24 04:04
Ur Specific Helper 1.010 (<1.030) 12/20/24 04:04
Urine Ketones Negative (Negative) 12/20/24 04:04
Ur Occult Blood Reflex Negative (Negative) 12/20/24 04:04
Urine Nitrite (Reflex) Negative (Negative) 12/20/24 04:04
Urine Bilirubin Negative (Negative) 12/20/24 04:04
Urine Urobilinogen Negative (Neg - 1+) 12/20/24 04:04
Leukocyte Esterase Rfl Negative (Negative) 12/20/24 04:04
Urine RBC None seen /HPF (0-2) 12/20/24 04:04
Urine WBC (Reflex) None seen /HPF (0-5) 12/20/24 04:04
Ur Squamous Epith Cells 0-2 /LPF (Few) 12/20/24 04:04
Urine Glucose Negative (Negative) 12/20/24 04:04
Urine Albumin (Reflex) 1+ (Neg - Trace) A 12/20/24 04:04
POC Glucose 129 mg/dl (70-99) H 12/20/24 00:17
Diagnostic Results: as per HPI
Carotid U/S- 12/21/24
Minimal calcified carotid bulb plaque on each side, measurements suggestive of less than 50% stenosis on each side as per modified Society of Radiologists in Ultrasound consensus criteria (IAC carotid criteria white paper, 2020).
CT head: No acute intracranial abnormality.
CTA head and neck: Mild to moderate bilateral proximal internal carotid atherosclerotic plaque, right side slightly greater than left. Proximal left internal carotid atherosclerotic plaque results in a nonhemodynamically significant stenosis of less
than 50%. Proximal right internal carotid atherosclerotic plaque is eccentric with cross sectional area stenosis calculated multiple times, percent stenosis greatest at approximately 47-48%. Due to the degree of eccentric appearance of the proximal
right internal carotid atherosclerotic plaque, stenosis of greater than 50% cannot be excluded. Suggest ultrasound for more additional evaluation.
MRI brain: There is restricted diffusion within the right frontal, parietal, and occipital lobes consistent with acute infarction. There is a small focus of blooming artifact along the cortical right occipital lobe which may represent petechial
hemorrhage (HI1).
Echo 12/20/2024
Normal biventricular size and systolic function without regional wall motion
abnormality.
LV ejection fraction is 55-60% by Martinez's method.
Normal diastolic function.
Normal right ventricular size and function.
Mild mitral regurgitation.
Aortic sclerosis without stenosis. Trace aortic regurgitation.
Mild tricuspid regurgitation.
Estimated pulmonary artery pressure of 34 mmHg, assuming a right atrial
pressure of 3 mmHg.
The aortic root is of normal size: Sinus of Valsalva 2.8 cm, sinotubular
junction 2.3 cm, proximal ascending aorta 2.6 cm.
Plaque seen in the aortic root and descending aorta.
Compared to transthoracic echocardiogram dated 06/13/2024, no significant
change. Patient also had an intraoperative transesophageal echocardiogram
06/15/2024 which reported no left atrial appendage thrombus; Left atrial
appendage exclusion [40 mm] with no flow. Study also reported grade 3-4
atheromatous disease in the aortic arch and descending thoracic aorta.
Assessment:59-year-old male with PMH of CABG�June 2024 presented with left-sided weakness and difficulty with word finding found to have acute stroke involving the right frontal, parietal and occipital lobes, status post FISH and Linq implant on
12/21/2024 associated with visual impairment, balance and ADL dysfunction.
Plan
PM&R PT/OT to increase independence with ADLs, improve balance, coordination, endurance, strength, mobility, community reintegration, decreased burden of care on others and family education.
CVA: Secondary prophylaxis with aspirin and Brilinta 90 bid changed from Plavix. statin, and blood pressure control (SBP less than 180 and diastolic less than 100 to participate with therapy for ischemic stroke). Continue to monitor neurologic
status. Status post Linq implant 12/21/2024. Neurology recommended hypercoagulable studies outpatient in 6 weeks.
Left nondominant hemiparesis: High risk for falls and sliding out of chair/bed. Safety reinforced.
- Avoid using affected arm to help lift or pull patient as this will cause trauma to the shoulder.
Left visual impairment: makes patient at increased risk for falls. Will need therapy to work on scanning of environment for safe navigation.
Aphasia:improved. speech evaluation
HTN: continue medications, monitor closely
HLD: Statin
Coronary artery disease : CABG - June 2024. Aspirin, Brilinta, statin, beta-claudia
Anemia: Likely multifactorial. Continue to monitor.
Psych: Psychology consult. Monitor mood, adjust medications as needed.
Skin: monitor for pressure sores/rashes/lesions.
Pain: acetaminophen or oxycodone as needed.
Bowel: Colace and Senna, PRN bisacodyl.
Bladder: Time void, PVRs, PRN straight cath.
GI Prophylaxis: Pantoprazole 40mg qd
DVT Prophylaxis: mechanical
Pulmonary: Incentive spirometry
Safety: Continue to reinforce assistance with all transfers.
Code Status: Full code
Dispo (date/plan/equipment needs): Home with family care. Social history reviewed.
Functional and Medical Goals: Modified Independent with ADL�s, ambulation, transfers
Discharge Destination: Would benefit from acute inpatient rehab once medically cleared and stable
Thank you for allowing me to care for your patient. Please contact me with any questions or concerns.
--- NOTE | 2024-12-22 09:27 | W.PN.HOSP.TC ---
Addendum entered and electronically signed by Sonal Carrillo MD 12/22/24 14:13:
total DC time 40 min
Original Note:
Today's Communication/Plan
-
see A/P
Dispo to [place]
Assessment / Plan
Assessment / Plan
HPI: 59-year-old gentleman with past medical history significant for psoriasis who presented to the emergency department secondary to word finding issues and difficulty moving his left arm. He was also complaining of visual field deficit in the left
lower quadrant of both eyes.
On arrival to the emergency department his NIH score was 3. ED physician called a stroke alert and reached out to [place] [facility]. By the time he spoke to them, the patient's symptoms had much improved.
The patient still c/o persistent visual field deficits and left arm sensation deficits/LUE ataxia, not at baseline though improved from when he first arrived. He is not on blood thinners.
A/P:
# Concern for acute CVA, Stroke alert called
ED provider discussed the patient with [facility] who recommended to load the patient with Plavix and continue aspirin, they did not recommend acute intervention at this time.
The patient took 4 baby aspirin [employer]
s/p Plavix 225 mg,
Cont baby aspirin, Brilinta 90 mg BID per Neuro
CT head: No acute intracranial abnormality.
MRI brain showed restricted diffusion within the right frontal, parietal, and occipital lobes consistent with acute infarction. There is a small focus of blooming artifact along the cortical right occipital lobe which may represent petechial
hemorrhage.
CT head/neck angio noted Mild to moderate bilateral proximal internal carotid atherosclerotic plaque, right side slightly greater than left. Proximal left internal carotid atherosclerotic plaque results in a nonhemodynamically significant stenosis
of less than 50%. Proximal right internal carotid atherosclerotic plaque is eccentric with cross sectional area stenosis calculated multiple times, percent stenosis greatest at approximately 47-48%. Due to the degree of eccentric appearance of the
proximal right internal carotid atherosclerotic plaque, stenosis of greater than 50% cannot be excluded.
Carotid US report reviewed: Minimal calcified carotid bulb plaque on each side, measurements suggestive of less than 50% stenosis on each side.
s/p FISH 12/21, FISH without evidence of GREG thrombus; no documented AF, s/p ILR implant for surveillance of AF in the setting of CVA
Of note, A1C 5.4%, LDL at 6, cont [employer] Lipitor, adjusted to 10 mg
# Hx of NSTEMI s/p CABG
# HLD
LDL at 6
Cont [employer] Lipitor 10 mg
DVT prophylaxis-SCDs
Full code
Dispo: [facility]
Anticipated Discharge: Today
Subjective/Interval History
-
Date of Service: December 22, 2024
Objective Data
-
Labs:
Laboratory Results
12/22/24
04:08
WBC 6.5
Hgb 13.5
Hct 39.0
Plt Count 182
Sodium 139
Potassium 3.9
Chloride 110 H
Carbon Dioxide 24
BUN 11
Creatinine 0.7
Glucose 96
Calcium 9.4
Vital Signs:
Vital Signs
Temp Pulse Resp BP Pulse Ox
36.9 C 71 18 142/91 98
12/22/24 07:25 12/22/24 08:01 12/22/24 07:25 12/22/24 08:01 12/22/24 07:25
I&O
12/21/24 12/22/24 12/23/24
06:59 06:59 06:59
Intake Total 360 / 360
Balance 360 / 360
Review of Systems
-
History Source: Patient
EENT: Reports Other (visual deficit with depth perception )
Neuro: Reports Other (L arm numbness slightly better )
Physical Exam
-
General: Well Developed, Well Nourished, No Apparent Distress, Comfortable and Conversant
HEENT: Normocephalic and Atraumatic
Respiratory: Clear to Auscultation and Non Labored Respirations; Negative Wheezes or Accessory Resp Muscle Use
Cardiac: Regular Rhythm and S1/S2
GI: Soft and Nontender
Musculoskeletal: No Edema
Skin: Warm and Dry; Negative Rash
Neuro: Awake, Alert and AO x 3
Psych: Calm and Intact Judgement/Insight
Data Reviewed
-
CT Scan: Report Reviewed by me, Discussed with Patient and Discussed with Family
MRI: Report Reviewed by me, Discussed with Patient and Discussed with Family
Labs: Labs Reviewed by me
--- NOTE | 2024-12-22 10:10 | PTCARENOTE ---
I assessed the patient's skin during the Prevalence Study. The back of his heal BL were red but blanchable. He had two pairs of socks on, his own which were ankle socks and non-slip hospital acquired socks. I removed his own socks as they were the
culprit of the redness. I then applied skin barrier to his heals and the no-slip socks.
[2024-12-22 12:04] VITALS: BP 144/87
--- NOTE | 2024-12-22 12:24 | CM ---
pt discharged, plan to go [facility] today.
--- NOTE | 2024-12-22 12:27 | PTCARENOTE ---
~[id number]: Handoff report received from nightshift RN. Pt AOx4, SB/NSR 50s-60s on tele, SBP 140s, RA satting 98%. Pt denies pain at this time. NIHSS 2 with L visiual field unchanged from previous assessment and L arm numbness which also remains
unchanged. Pt independent in room and OOB in chair. + pulses and no edema noted. Link monitor in placed covered with 4x4 and tegaderm in center chest CDI. Per provider, Pt ok to shower. DC orders in by provider, awaiting rehab placement. All needs
met at this time, call iyer within reach.
~[id number]: arrived. Patient took a shower, tolerated well.
~1137: [facility], RN unavailable at this time, waiting for call back.
~1226: [facility]. Report given to receiving RN. PIV removed. Patient transported with all belongings, d/c paperwork and present via wheelchair in stable condition.
--- NOTE | 2024-12-22 13:30 | W.DCSUMMARY ---
Discharge Summary
Discharge Data
Date of Admission: 12/21/24
Date of Discharge: 12/22/24
-
Pending Results: No
Hospital Course
Principal Diagnosis:
Acute stoke involving the right frontal, parietal, and occipital lobes
Possible small petechial hemorrhage along the cortical right occipital lobe
Chronic Diagnoses:�
History of NSTEMI s/p CABG
Hyperlipidemia on Lipitor (dose decreased from 20 to 10 mg this admission as LDL low at 6)
Psoriasis
Consultations:�
Neurology
Cardiology
PMR
Vascular surgery
Procedures:�
FISH 12/21, without evidence of GREG thrombus; s/p ILR implant for surveillance of atrial fibrillation in the setting of CVA
Clinical course:�
This is a 59-year-old man with past medical history as stated above, who presented with word finding issues and difficulty moving/numbness in his left arm.
He was also complained of visual field deficit in the left lower quadrant of both eyes.
Problem 1:
Acute stoke involving the right frontal, parietal, and occipital lobes with possible small petechial hemorrhage along the cortical right occipital lobe, noted on his MRI.
He was on aspirin and Plavix at home, and during this admission, Plavix was switched to Brilinta at 90 mg BID (his verify assay for Plavix noted possible Plavix non-inhibition at level 181).
His CT head/neck angio noted mild to moderate bilateral proximal internal carotid atherosclerotic plaque, right side slightly greater than left.
Follow up carotid US confirmed minimal calcified carotid bulb plaque on each side, measurements suggestive of less than 50% stenosis on each side.
This does not need vascular intervention per vascular surgery.
He had FISH on 12/21 which did not show GREG thrombus; ILR was implanted for surveillance of atrial fibrillation in the setting of acute stroke.
Of note, his LDL was low at 6, and his prior to admission Lipitor was adjusted from 20 to 10 mg.
His A1c was within normal limit at 5.4%
He was discharged to [facility] per PT OT recommendation.
As for the rest of his medical problems, they were stable during his hospital stay.
Discharge Plan
-
Patient Disposition: Acute Rehab Facility
Discharge Diagnosis/Procedures: acute stroke involving the right frontal, parietal, and occipital lobes;
s/p FISH and Linq implant 12/21/24
Condition: Fair
Diet: As tolerated, Low Cholesterol and Low Sodium
Activity: As tolerated
Driving Restrictions: No driving
Bathing Restrictions: After dressing removed
Stand Alone Forms: DC Inst - Implanted Device
Referrals:
[facility] [place] [Other]
[facility]- [facility] [Provider Group] - 01/04/25 9:00 am
Referral Note: Incision check appointment
Jericho Fletcher MD [Non-Admitting Privileges, [facility]]
Additional Discharge Medication Instructions: STOP taking Plavix (clopidogrel) it has been replaced with Brilinta (ticagrelor) 90 mg twice a day.
Continue your usual dose of aspirin 81 mg once a day
Atorvastatin was decreased from 20 to 10 mg.
Take Toprol 12.5 mg twice daily.
Prescriptions:
New
ticagrelor [Brilinta] 90 mg Tablet
90 mg PO BID Qty: 60 6RF
atorvastatin 10 mg Tablet
10 mg PO HS Qty: 30 0RF
metoprolol succinate 25 mg Tablet Extended Release 24 Hr
12.5 mg PO BID Qty: 60 0RF
Continued
pantoprazole 40 mg Tablet,Delayed Release (Dr/Ec)
40 mg PO DAILY Qty: 30 1RF
aspirin 81 mg Tablet,Chewable
81 mg PO DAILY Qty: 0 0RF
Repatha Syringe 140 mg/mL Syringe
140 mg SC Q2W
Rx Instructions:
next dose 01/01/25
Discontinued
clopidogrel 75 mg Tablet
75 mg PO DAILY Qty: 30 1RF
metoprolol succinate 25 mg Tablet Extended Release 24 Hr
12.5 mg PO DAILY Qty: 30 1RF
atorvastatin 20 mg Tablet
20 mg PO HS
Discharge Orders:
Discharge Patient (As Directed); Ordered 12/22/24
Ordered By: Sonal Carrillo
Care Plan Goals
Care Plan Goals:
Problem: Readiness for enhanced knowledge related to diagnosis and treatment plan
Goal: Understand your diagnosis and treatment plan needs, including medications if applicable.
Instructions: Know your diagnosis, underlying causes and treatment plan options, including medications if applicable. Consult with your health care team to learn about your diagnosis and treatment plan, including medications if applicable.
Discharge Date and Time
Discharge Date/Time: 12/22/24 12:26
Print Language: TELUGU
--- NOTE | 2024-12-22 14:02 | W.PN.CARDCBS ---
Addendum entered and electronically signed by Mike Shepherd MD 12/22/24 18:31:
Patient interviewed and examined
144/87, pulse 64 respirate 16, afebrile, head neck exam unremarkable, lungs are clear, regular rate and rhythm, Linq in place abdomen extremities benign, neuroexam grossly nonfocal, complaining of some left upper extremity paresthesias and visual
issues
Impression: As below per Tiffany Valenzuela.
Plan:
Note below reviewed in detail, agree with findings unless otherwise specified
Overall doing well from a cardiac standpoint.
LINQ monitor now in place.
Okay for transfer to [place] [facility]
Long-term follow-up with Dr. Hare
.
Original Note:
Today's Communication / Plan
-
Going to [place] for rehab
Linq incision check locally, but trying to change monitor alerts to primary shrimp peeler, Dr. Migel Muñoz at [facility] for continuity
Impression / Plan
-
PCP: Dr. Jericho Fletcher DO
Cardiology: Dr. Migel Muñoz at [place]
Impression:
Admitted with stoke symptoms 12/20/24 early AM
Acute right frontal, parietal, and occipital lobes infarcts consistent with acute CVA
Small focus of blooming artifact along the cortical right occipital lobe which may represent petechial hemorrhage by MRI 12/20/24
Recent admission for NSTEMI and CABG 06/11/24 until 06/18/24
CAD s/p CABG 06/15/24
BERTRAND to LAD proper, Ao to RSVG to large diagonal, Ao to left radial to both branches of OM, Ao to RSVG to RPDA 06/15/24
s/p GREG exclusion 06/15/24
GREG no longer visible with color-flow Doppler confirming absence of flow by postop FISH 06/15/2024
B/L ICA less than 50% by carotid U/S 06/13/24
HTN
Mixed hyperlipidemia
s/p [employer] Linq 12/21/24
Echo 06/13/24: EF 55% with no significant valve disease.
Echo 12/20/2024: EF 55 to 60%, normal diastolic function, normal RV size and function, mild MR, trace aortic regurgitation, mild TR, plaque seen in the aortic root and ascending aorta
FISH 12/21/2024: No source of emboli identified, normal BiV size and function without WMA
Plan:
-Neurology, CT surgery and cardiology locally and at [facility] have weighed in on patient's case and the consensus is that patient will cont with DAPT using aspirin and Brilinta. Linq monitor in place and if patient has atrial arrhythmia then will
transition to DOAC.
-Linq monitor in place and I have reached out to [employer] rep to change cardiology office from [facility] location to Dr. Migel Muñoz at [facility] who is patient's primary outpatient shrimp peeler
-No evidence fo cardiac emboli on FISH 12/21/24
-Vascular surgery does not suspect that carotid disease played a role in CVA
-Patient has also been recommended hypercoagulable workup as an outpatient in 6 weeks
-Neurology recommended changing from Plavix to Brilinta. Outpatient dose of aspirin will be continued
-Outpatient dose of atorvastatin was decreased to 10 mg daily and usual dose of Repatha 140 mg SQ every 2 weeks should be continued upon D/C to home given NSTEMI and CABG.
-Patient being transferred to [place] [facility]
HPI: Patient came to [facility] ER just after midnight this morning with complaints of dysarthria and aphasia, cardiology is now consulted for CVA and consideration for FISH. Talked with patient, , daughter and son in room. Patient went to bed
feeling fine and 30 minutes later awoke with the presenting symptoms. He came to [facility] ER and urgent CT was negative and all symptoms are resolving with an NIH score of 0. Patient was admitted and then had MRI of brain that showed acute right
frontal, parietal and occipital lobe infarcts consistent with acute CVA. Patient has been SR since admission. Patient is known to cardiology locally for recent NSTEMI and CABG admission 07/12/2023 until 06/18/2024.
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
Subjective
Date of Service: December 22, 2024
No pain
Objective
Labs:
12/22/24 04:08
12/22/24 04:08
Labs
Hgb 13.5 g/dL (13.0-18.0) 12/22/24 04:08
Hct 39.0 % (39.0-52.0) 12/22/24 04:08
Plt Count 182 10^3/uL (130-400) 12/22/24 04:08
PT 15.7 Sec (11.4-14.6) H 12/20/24 00:49
INR 1.22 12/20/24 00:49
APTT 30.9 Sec (23.4-35.0) 12/20/24 00:49
Sodium 139 mmol/L (135-145) 12/22/24 04:08
Potassium 3.9 mmol/L (3.5-5.1) 12/22/24 04:08
BUN 11 mg/dl (9-20) 12/22/24 04:08
Creatinine 0.7 mg/dL (0.7-1.3) 12/22/24 04:08
Glucose 96 mg/dl (70-99) 12/22/24 04:08
Troponins
12/20/24
00:49
Troponin I < 0.012
Vital Signs and I&O:
Vital Signs
Temp Pulse Resp BP Pulse Ox
97.8 F 64 16 144/87 98
12/22/24 12:02 12/22/24 12:02 12/22/24 12:02 12/22/24 12:04 12/22/24 12:04
Vital Signs
Temp Pulse Resp BP Pulse Ox
97.8 F 64 16 144/87 98
12/22/24 12:02 12/22/24 12:02 12/22/24 12:02 12/22/24 12:04 12/22/24 12:04
Intake & Output
12/20/24 12/21/24 12/22/24 12/23/24
06:59 06:59 06:59 06:59
Intake Total 360 / 360
Balance 360 / 360
Physical Exam
Physical Exam
GEN: AAOx3
LUNGS: RA
CV: SR on tele
== END 2024-12-22 12:26 | DRG 40 ==
LOC: IVU 08:28
PROVIDERS: Internal Medicine Cardiovascular Disease; Nurse Practitioner; Psychiatry & Neurology Psychiatry; ADMITTING PHYSICIAN Internal Medicine; ATTENDING PHYSICIAN Internal Medicine; CONSULT PHYSICIAN Internal Medicine Cardiovascular Disease; CONSULT PHYSICIAN Physical Medicine & Rehabilitation; CONSULT PHYSICIAN Psychiatry & Neurology Neurology; EMERGENCY PHYSICIAN Student in an Organized Health Care Education/Training Program; OTHER PHYSICIAN Surgery
PROC: 0JH632Z Insertion of Monitoring Device into Chest Subcutaneous Tissue and Fascia, Percutaneous Approach (ICD-10-PCS; 2024-12-21)
PROC: B24BZZ4 Ultrasonography of Heart with Aorta, Transesophageal (ICD-10-PCS; 2024-12-21)
DX: I63.9 Cerebral infarction, unspecified (principal); I61.1 Nontraumatic intracerebral hemorrhage in hemisphere, cortical; G81.94 Hemiplegia, unspecified affecting left nondominant side; H53.462 Homonymous bilateral field defects, left side; R27.0 Ataxia, unspecified; L40.8 Other psoriasis; I70.0 Atherosclerosis of aorta; D64.9 Anemia, unspecified; R47.01 Aphasia; I10 Essential (primary) hypertension; E78.2 Mixed hyperlipidemia; I25.10 Atherosclerotic heart disease of native coronary artery without angina pectoris; I25.2 Old myocardial infarction; Z95.1 Presence of aortocoronary bypass graft; Z79.02 Long term (current) use of antithrombotics/antiplatelets; Z79.82 Long term (current) use of aspirin; Z79.891 Long term (current) use of opiate analgesic; Z87.891 Personal history of nicotine dependence
CPT/HCPCS: 0042T; 33285; 70450; 70496; 70498; 70551; 80048; 80053; 80061; 81003; 81015; 82962; 83036; 84484; 85025; 85027; 85576; 85610; 85730; 92523; 92610; 93005; 93306; 93312; 93320; 93325; 93880; 97112; 97116; 97129; 97163; 97167; 97535; 99285; C1764; Q9967

== ENCOUNTER 2025-01-12 14:04 | Outpatient (RCR) | payer BC, SELFPAY | END 2025-01-12 23:59 | disposition home or self-care (01) | LOC: ROT 14:04 | PROVIDERS: ATTENDING PHYSICIAN Physical Medicine & Rehabilitation; FAMILY PHYSICIAN Family Medicine | DX: I69.318 Other symptoms and signs involving cognitive functions following cerebral infarction (principal); Z73.6 Limitation of activities due to disability; I69.312 Visuospatial deficit and spatial neglect following cerebral infarction; I69.314 Frontal lobe and executive function deficit following cerebral infarction; I69.310 Attention and concentration deficit following cerebral infarction | CPT/HCPCS: 96125; 97129; 97130; 97167; 97530; 97537 ==

== ENCOUNTER 2025-02-10 13:42 | Outpatient (RCR) | payer BC, SELFPAY | END 2025-02-10 23:59 | disposition home or self-care (01) | LOC: ROT 13:42 | PROVIDERS: ATTENDING PHYSICIAN Physical Medicine & Rehabilitation; FAMILY PHYSICIAN Family Medicine | DX: I69.318 Other symptoms and signs involving cognitive functions following cerebral infarction (principal); I69.312 Visuospatial deficit and spatial neglect following cerebral infarction; I69.311 Memory deficit following cerebral infarction; I69.310 Attention and concentration deficit following cerebral infarction; I69.398 Other sequelae of cerebral infarction; Z73.6 Limitation of activities due to disability | CPT/HCPCS: 97129; 97130; 97530; 97537 ==

== ENCOUNTER 2025-03-13 15:45 | Outpatient (RCR) | payer BC, SELFPAY | END 2025-03-13 23:59 | disposition home or self-care (01) | LOC: ROT 15:45 | PROVIDERS: ATTENDING PHYSICIAN Physical Medicine & Rehabilitation; FAMILY PHYSICIAN Family Medicine | DX: I69.318 Other symptoms and signs involving cognitive functions following cerebral infarction (principal); I69.312 Visuospatial deficit and spatial neglect following cerebral infarction; I69.311 Memory deficit following cerebral infarction; I69.310 Attention and concentration deficit following cerebral infarction; I69.398 Other sequelae of cerebral infarction; Z73.6 Limitation of activities due to disability | CPT/HCPCS: 97112; 97129; 97130; 97530; 97537 ==

== ENCOUNTER 2025-04-14 08:14 | Outpatient (RCR) | payer BC, SELFPAY | END 2025-04-14 23:59 | disposition home or self-care (01) | LOC: ROT 08:14 | PROVIDERS: ATTENDING PHYSICIAN Physical Medicine & Rehabilitation; FAMILY PHYSICIAN Family Medicine | DX: I69.318 Other symptoms and signs involving cognitive functions following cerebral infarction (principal); I69.312 Visuospatial deficit and spatial neglect following cerebral infarction; I69.311 Memory deficit following cerebral infarction; I69.310 Attention and concentration deficit following cerebral infarction; I69.398 Other sequelae of cerebral infarction; Z73.6 Limitation of activities due to disability | CPT/HCPCS: 97112; 97129; 97130; 97530 ==